=== PATIENT | female | born 1990 | race Caucasian/White ===

== ENCOUNTER → 2019-12-29 10:26 | Outpatient (BNVA) | payer OTHER, SELFPAY | PROVIDERS: PCP Internal Medicine; Visit Provider Obstetrics & Gynecology | DX: N92.6 Irregular menstruation, unspecified (principal) | CPT/HCPCS: 81025; 99213 ==

== ENCOUNTER 2019-12-30 07:34 | Outpatient (REF) | payer OTHER, SELFPAY ==
[2019-12-30 09:35] LABS: TSH reflex Free T4 0.67 mIU/mL (0.32-4.0)
[2020-01-01 01:46] LABS: Follicle Stimulating Hormone 5.6 mIU/mL
[2020-01-01 16:51] LABS: Prolactin 1.8 ng/mL
== END 2019-12-30 07:35 | disposition home or self-care (01) ==
LOC: HO.LAB 07:34
PROVIDERS: PCP Internal Medicine; Visit Provider Obstetrics & Gynecology
DX: N92.6 Irregular menstruation, unspecified (principal)
CPT/HCPCS: 36415; 83001; 84146; 84443

== ENCOUNTER → 2020-01-12 11:56 | Outpatient (BNVA) | payer OTHER, SELFPAY | PROVIDERS: Visit Provider Obstetrics & Gynecology | DX: Z76.89 Persons encountering health services in other specified circumstances (principal) ==

== ENCOUNTER 2020-01-20 17:57 | Outpatient (REF) | payer OTHER, SELFPAY | END 2020-01-20 17:58 | disposition home or self-care (01) | LOC: HO.LNP 17:57 | PROVIDERS: Visit Provider Hospitalist | DX: Z20.828 Contact with and (suspected) exposure to other viral communicable diseases (principal) | CPT/HCPCS: 87635 ==

== ENCOUNTER 2020-02-04 03:34 | Emergency (ER) | payer OTHER, SELFPAY ==
--- NOTE | 2020-02-04 | ECG_ITS ---
Test Reason : CHEST PAIN Blood Pressure : / mmHG Vent. Rate : 089 BPM Atrial Rate : 089 BPM P-R Int : 156 ms QRS Dur : 098 ms QT Int : 354 ms P-R-T Axes : 036 073 043 degrees QTc Int : 430 ms Normal sinus rhythm Normal ECG When compared with ECG of 22-JUL-2011 18:07, No significant change was found Referred By: Generic ED Physician Electronically Signed By:COLLINS PEREIRA MD
[2020-02-04 03:49] VITALS: BP 128/87; PULSE 98; RESP 16; TEMP 36.8; O2SAT 99; BMI 29.0
--- NOTE | 2020-02-04 03:54 | PC.NURSE ---
pt ambulatory to room from with steady gait. no difficulty speaking or facial droop. equal strong bilateral hand grasps. pt denies headache or recent injury.
--- NOTE | 2020-02-04 04:34 | CT_ITS ---
EXAMINATION: CT HEAD WITHOUT CONTRAST CLINICAL INFORMATION: Headache. COMPARISON: 12/30/2014. TECHNIQUE: Contiguous helical images of the brain were obtained without IV contrast. Multiplanar reconstructions were performed. DLP: 641 mGy-cm. FINDINGS: There are no pathologic extra-axial fluid collections. The lateral, third, fourth ventricles are nondilated and concordant with the appearance of the sulci. There is no evidence for acute intraparenchymal hemorrhage or infarct. There is neither mass nor mass effect. There is no shift of midline structures. The paranasal sinuses and mastoid air cells are clear. There are no osseous lesions. CT/CT head/brain wo con IMPRESSION: No evidence for acute intracranial injury. Automated exposure control (Care Dose) Adjustment of the mA and/or kv according to patient size (this includes techniques or standardized protocols for targeted exams where dose is matched to indication / reason for exam; i.e. extremities or head).
--- NOTE | 2020-02-04 04:37 | ED.GENADULT ---
HPI - General Adult General Chief complaint: General Medical Stated complaint: NUMBNESS IN JAW AND RIGHT ARM/CHEST TIGHTNESS Time Seen by Provider: 02/04/20 04:34 History of Present Illness HPI narrative: Patient is a 29-year-old female presents today with having numbness sensation to the right arm face. Along with chest tightness and facial pain. Patient denies any fever chills. Has a history of migraines in the past. Worse with light. No coughing or congestion or upper respiratory symptoms. Able to move her hands without any difficulty. Patient denies noticing any facial droop. Patient from home. No recent travel. No syncopal episode. No history of diabetes, hypertension, mi, family history of [place]. No smoking. Patient from home. Related Data Home Medications Medication Instructions Recorded Confirmed albuterol sulfate 90 mcg/actuation INHALATION 12/26/19 aerosol inhaler amitriptyline 25 mg tablet 25 mg PO BEDTIME 12/26/19 ferrous fumarate 325 mg (106 mg 325 mg PO BID 12/26/19 iron) tablet hydroxyzine pamoate 25 mg capsule 25 mg PO BEDTIME 12/26/19 ibuprofen 800 mg tablet 800 mg PO TID 12/26/19 norethindrone 1 mg-ethinyl 1 tab PO DAILY 12/26/19 estradiol 20 mcg (21)-iron 75 mg (7) tablet ondansetron HCl 4 mg tablet 4 mg PO Q8H 12/26/19 pantoprazole 40 mg tablet,delayed 40 mg PO DAILY 12/26/19 release pramipexole 0.5 mg tablet 0.5 mg PO BEDTIME 12/26/19 prochlorperazine maleate 10 mg 10 mg PO Q6H 12/26/19 tablet Previous Rx's Medication Instructions Recorded amoxicillin 875 mg-potassium 1 tab PO BID #20 tab 01/20/20 clavulanate 125 mg tablet Allergies Allergy/AdvReac Type Severity Reaction Status Date / Time metronidazole [Flagyl] Allergy Unknown stomach Verified 02/04/20 03:47 upset paroxetine [Paxil] Allergy Unknown vomiting Verified 02/04/20 03:47 clarithromycin [From Biaxin] AdvReac Mild HEADACHE Verified 02/04/20 03:47 lactose [Lactose] AdvReac Mild CRAMPING/VO Verified 02/04/20 03:47 MITING Environmental Allergy Mild ITCHY Uncoded 12/15/19 16:04 EYES/RUNNY NOSE Biaxin Allergy Unknown vomiting Uncoded 08/01/19 00:00 lactose Allergy Unknown Diarrhea Uncoded 02/04/20 03:47 milk Allergy Unknown Diarrhea Uncoded 02/04/20 03:47 seasonal Allergy Unknown Itching Uncoded 02/04/20 03:47 From PAXIL AdvReac Intermediate NAUSEA & Uncoded 12/15/19 16:04 VOMITING Review of Systems Review of Systems: Constitutional: No Weight loss, No Fever, No Chills, No Night Sweats, No Fatigue, No Malaise ENT/Mouth: No Hearing loss, No Ear Pain, No Nasal Congestion, No Sinus Pain, No Hoarseness, No sore throat, No Rhinorrhea, No Swallowing Difficulty Eyes: No Eye Pain, No Swelling, No Redness, No Foreign Body, No Discharge, No Vision Changes Cardiovascular: No Chest Pain, No SOB, No Dyspnea on Exertion, No Orthopnea, No Edema, No Palpitations Respiratory: No Cough, No Sputum, No Wheezing, No Smoke Exposure, No Dyspnea Gastrointestinal: No Nausea, No Vomiting, No Diarrhea, No Constipation, No abdominal Pain, No Hematochezia, No Melena Genitourinary: no irregular bleeding, No Dysuria, No Urinary Frequency, No Hematuria, No Urinary Incontinence, No Urgency, No Flank Pain, No Urinary Flow Changes, No Hesitancy Musculoskeletal: No joint pain, No Myalgias, No Joint Swelling Skin: No Skin Lesions, No rash Neuro: No Weakness, No Numbness, No Paresthesias, No Loss of Consciousness, No Dizziness, No Headache Psych: No Anxiety/Panic, No Depression, No SI/HI/AH/VH, No Social Issues, Heme/Lymph: No Bruising, No Bleeding,No Lymphadenopathy Endocrine: No Polyuria, No Polydipsia, No Temperature Intolerance PMFSH Past Medical History Attestation statement: The following information was validated with the patient. Medical History Anxiety delivery delivered Depression Fibromyalgia GERD (gastroesophageal reflux disease) IBS (irritable bowel syndrome) Irregular menstrual bleeding (~01/2019) Overweight (BMI 25.0-29.9) Restless leg syndrome Surgical History H/O laparoscopy History of delivery Hx of tonsillectomy [place] teeth extracted Family History Family History Father Kidney failure Heart disease Colon polyps Bipolar 1 disorder Hypertension CVD (cardiovascular disease) Chronic mental illness Mother Seizure Depression Anxiety Maternal Grandmother Hemorrhagic stroke History of multiple strokes Maternal Grandfather Cancer Family/Other Breast cancer Family/Other Colon cancer Social History Social History Alcohol intake: never Smoking Status: Never smoker Advance Directives: No Advance Directives Information Provided: No Sexual orientation: Straight/Heterosexual Gender identity: female Physical Exam Vital Signs: Vital Signs: Last Vital Signs Temp 98.2 F 02/04/20 03:49 Pulse 77 02/04/20 06:18 Resp 20 02/04/20 06:18 BP 113/72 02/04/20 06:18 Pulse Ox 100 02/04/20 06:18 Body Mass Index 29.0 Appearance: Alert. Oriented X3. No acute distress. Eyes: Pupils equal, round and reactive to light. ENT: Pharynx normal. Neck: Normal inspection. Neck supple. No lymph nodes noted. No crepitus CVS: Normal heart rate and rhythm. Pulses normal. Normal S1 and S2 Respiratory: No respiratory distress. Breath sounds normal. No Wheezing. No rales Abdomen: Soft and nontender. No rigidity. No distention. good BS x4 Skin: Skin warm and dry. Normal skin color. Normal skin turgor. Extremities: No lower extremity edema. Neurovascular intact to all extremities. No Lacerations. No Rash Neuro: Oriented X 3. No motor deficit. No sensory deficit. Moving all extermities. No slurred speech Medical Decision Making MDM Narrative Medical decision making narrative: Question if symptoms secondary to migraine headache. Patient had headache has arm numbness. Had previous history of migraine in the past. Given migraine treatment. Symptoms resolved. CT scan of the head was grossly negative for any acute evidence of bleeding. Neurologically intact. There is no objective finding only subjective findings. Will discharge patient home. Currently in stable condition Differential Diagnosis Differential Diagnosis: Migraine, CVA, intracranial bleed Lab Data Lab results reviewed: Yes I reviewed the patient's lab results. Result diagrams: 02/04/20 04:58 02/04/20 04:58 Labs: Lab Results 02/04/20 02/04/20 02/04/20 Range/Units 04:49 04:58 04:58 WBC 4.8 (4.8-10.8) X10*3/uL RBC 4.78 (4.20-5.50) X10*6/uL Hgb 13.2 (12.0-16.0) g/dl Hct 40.1 (37-47) % MCV 83.9 (80-98) fL MCH 27.6 (27.0-33.0) pg MCHC 32.9 (31.0-35.0) g/dl RDW 12.4 (11.0-16.0) % Plt Count 343 (160-400) X10*3/uL MPV 9.8 (9.4-12.3) fL Immature Gran % (Auto) 0.0 (0.0-0.4) % Neut % (Auto) 43.7 L (45-73) % Lymph % (Auto) 45.0 H (20-40) % [place] % (Auto) 6.8 (2-11) % Eos % (Auto) 4.1 H (0-4) % Baso % (Auto) 0.4 (0-2) % Lymph # (Auto) 2.2 (1.2-4.9) X10*3/uL [place] # (Auto) 0.3 (0.1-1.2) X10*3/uL Eos # (Auto) 0.2 (0.0-0.4) X10*3/uL Baso # (Auto) 0.0 (0.0-0.2) X10*3/uL Abs Immat Gran (auto) 0.00 (0.00-0.03) X10*3/uL Absolute Neuts (auto) 2.1 (2.0-8.3) X10*3/uL Absolute Nucleated RBC 0.000 (0.0-0.012) X10*3/uL Nucleated RBC % (auto) 0.0 (0.0-0.2) /100WBC PT 12.0 (10.8-13.0) SEC INR 1.0 (0.9-1.1) Sodium (135-145) mmol/L Potassium (3.3-5.1) mmol/l Chloride (96-108) mmol/L Carbon Dioxide (22-29) mmol/L Anion Gap (12-20) BUN (9-16) mg/dL Creatinine (0.5-1.4) mg/dL Estim Creat Clear Calc Estimated GFR Random Glucose (60-115) mg/dL Calcium (8.4-10.2) mg/dL Troponin I High Sens (<3.5-17.0) ng/L Urine Test NEGATIVE (NEGATIVE) 02/04/20 02/04/20 Range/Units 04:58 04:58 WBC (4.8-10.8) X10*3/uL RBC (4.20-5.50) X10*6/uL Hgb (12.0-16.0) g/dl Hct (37-47) % MCV (80-98) fL MCH (27.0-33.0) pg MCHC (31.0-35.0) g/dl RDW (11.0-16.0) % Plt Count (160-400) X10*3/uL MPV (9.4-12.3) fL Immature Gran % (Auto) (0.0-0.4) % Neut % (Auto) (45-73) % Lymph % (Auto) (20-40) % [place] % (Auto) (2-11) % Eos % (Auto) (0-4) % Baso % (Auto) (0-2) % Lymph # (Auto) (1.2-4.9) X10*3/uL [place] # (Auto) (0.1-1.2) X10*3/uL Eos # (Auto) (0.0-0.4) X10*3/uL Baso # (Auto) (0.0-0.2) X10*3/uL Abs Immat Gran (auto) (0.00-0.03) X10*3/uL Absolute Neuts (auto) (2.0-8.3) X10*3/uL Absolute Nucleated RBC (0.0-0.012) X10*3/uL Nucleated RBC % (auto) (0.0-0.2) /100WBC PT (10.8-13.0) SEC INR (0.9-1.1) Sodium 140 (135-145) mmol/L Potassium 3.5 (3.3-5.1) mmol/l Chloride 107 (96-108) mmol/L Carbon Dioxide 28 (22-29) mmol/L Anion Gap 9 L (12-20) BUN 7 L (9-16) mg/dL Creatinine 0.78 (0.5-1.4) mg/dL Estim Creat Clear Calc 100.9 Estimated GFR > 60 Random Glucose 105 (60-115) mg/dL Calcium 8.2 L (8.4-10.2) mg/dL Troponin I High Sens < 3.5 (<3.5-17.0) ng/L Urine Test (NEGATIVE) Discharge Plan Discharge Clinical Impression: Migraine Patient Disposition: Home, Self-Care Instructions: Migraine Headache (ED) Prescriptions: No Action amoxicillin-pot clavulanate [Augmentin] 875-125 mg tablet 1 tab PO BID Qty: 20 RF: 0 prochlorperazine maleate 10 mg tablet 10 mg PO Q6H RF: 0 norethindrone-e.estradiol-iron 1 mg-20 mcg (21)/75 mg (7) tablet 1 tab PO DAILY RF: 0 pantoprazole 40 mg tablet,delayed release (DR/EC) 40 mg PO DAILY RF: 0 pramipexole 0.5 mg tablet 0.5 mg PO BEDTIME RF: 0 amitriptyline 25 mg tablet 25 mg PO BEDTIME RF: 0 ibuprofen 800 mg tablet 800 mg PO TID RF: 0 albuterol sulfate 90 mcg/actuation HFA aerosol inhaler inhalation RF: 0 ondansetron HCl [Zofran] 4 mg tablet 4 mg PO Q8H RF: 0 hydroxyzine pamoate [Vistaril] 25 mg capsule 25 mg PO BEDTIME RF: 0 ferrous fumarate 325 mg (106 mg iron) tablet 325 mg PO BID RF: 0 Referrals: Jammie Castle MD [Primary Care Provider] - 2 days
[2020-02-04 05:06] LABS: Basophils Percent Auto 0.4 % (0-2); Eosinophils Absolute Auto 0.2 X10*3/uL (0.0-0.4); Eosinophils Percent Auto 4.1 % (0-4); Hematocrit 40.1 % (37-47); Hemoglobin 13.2 g/dl (12.0-16.0); Lymphocytes Absolute Auto 2.2 X10*3/uL (1.2-4.9); Mean Corpuscular HGB Conc 32.9 g/dl (31.0-35.0); Mean Corpuscular Hemoglobin 27.6 pg (27.0-33.0); Mean Corpuscular Volume 83.9 fL (80-98); Mean Platelet Volume 9.8 fL (9.4-12.3); Monocytes Absolute Auto 0.3 X10*3/uL (0.1-1.2); Monocytes Percent Auto 6.8 % (2-11); Neutrophils Absolute Auto 2.1 X10*3/uL (2.0-8.3); Neutrophils Percent Auto 43.7 % (45-73); Platelet Count 343 X10*3/uL (160-400); Red Blood Count 4.78 X10*6/uL (4.20-5.50); Red Cell Distribution Width 12.4 % (11.0-16.0); White Blood Count 4.8 X10*3/uL (4.8-10.8)
[2020-02-04 05:07] LABS: MANUAL DIFF FLAG NO
[2020-02-04] MEDS: Ketorolac Tromethamine 15 MG/ML VIAL IV (05:17)
[2020-02-04] MEDS: Metoclopramide HCl 10 MG/2 ML VIAL IVPUSH (05:18)
[2020-02-04] MEDS: diphenhydrAMINE HCL 50 MG/ML VIAL 25 MG IVPUSH (05:18)
[2020-02-04 05:22] LABS: UPreg QC Valid YES; Urine Pregnancy NEGATIVE (NEGATIVE)
[2020-02-04 05:37] LABS: Anion Gap 9 (12-20); Blood Urea Nitrogen 7 mg/dL (9-16); Calcium 8.2 mg/dL (8.4-10.2); Carbon Dioxide 28 mmol/L (22-29); Chloride 107 mmol/L (96-108); Creatinine Clr Calc Pharmacy 100.9; Estimated Glomerular Filt Rate > 60; Glucose Random 105 mg/dL (60-115); Potassium 3.5 mmol/l (3.3-5.1); Sodium 140 mmol/L (135-145); Troponin-I High Sensitivity < 3.5 ng/L (<3.5-17.0)
--- NOTE | 2020-02-04 06:17 | PC.NURSE ---
pt reports that she is no longer experiencing chest discomfort or right sided numbness. 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 pt was able to fal asleep following edication administration.
[2020-02-04 06:18] VITALS: BP 113/72; PULSE 77; RESP 20; O2SAT 100
== END 2020-02-04 06:47 | disposition home or self-care (01) ==
PROVIDERS: Emergency Provider Emergency Medicine Emergency Medical Services; PCP Internal Medicine
DX: G43.909 Migraine, unspecified, not intractable, without status migrainosus (principal); Z79.899 Other long term (current) drug therapy; R20.0 Anesthesia of skin
CPT/HCPCS: 36415; 70450; 80048; 81025; 84484; 85025; 85610; 93005; 96374; 96375; 99283; 99284; J1200; J1885; J2765

== ENCOUNTER → 2020-02-20 14:35 | Outpatient (BNVA) | payer OTHER, SELFPAY | PROVIDERS: Visit Provider Obstetrics & Gynecology | DX: Z76.89 Persons encountering health services in other specified circumstances (principal) ==

== ENCOUNTER 2020-04-02 13:04 | Outpatient (REF) | payer OTHER, SELFPAY ==
--- NOTE | 2020-04-02 13:09 | US_ITS ---
EXAMINATION: PELVIC ULTRASOUND CLINICAL INFORMATION: Amenorrhea COMPARISON: Previous pelvic ultrasound May 2017 TECHNIQUE: Transabdominal and transvaginal pelvic ultrasound. Transvaginal exam was performed for better visualization of the uterus and ovaries. FINDINGS: The uterus is anteverted and measures 8.5 x 3.2 x 4.2 cm in dimension. No focal uterine lesion is seen. Endometrial thickness is normal estimated at 0.4 cm. There is trace fluid seen in the endocervical canal. There are small echogenic foci in the cervix probably representing small calcifications. The ovaries are normal-appearing. The right ovary measures 3.8 x 2.7 x 1.8 cm and the left ovary measures 2.3 x 1.2 x 2.3 cm. There is no fluid in the pelvis. US/US pelvic complete IMPRESSION: Unremarkable exam.
--- NOTE | 2020-04-02 13:09 | US_ITS ---
EXAMINATION: PELVIC ULTRASOUND CLINICAL INFORMATION: Amenorrhea COMPARISON: Previous pelvic ultrasound May 2017 TECHNIQUE: Transabdominal and transvaginal pelvic ultrasound. Transvaginal exam was performed for better visualization of the uterus and ovaries. FINDINGS: The uterus is anteverted and measures 8.5 x 3.2 x 4.2 cm in dimension. No focal uterine lesion is seen. Endometrial thickness is normal estimated at 0.4 cm. There is trace fluid seen in the endocervical canal. There are small echogenic foci in the cervix probably representing small calcifications. The ovaries are normal-appearing. The right ovary measures 3.8 x 2.7 x 1.8 cm and the left ovary measures 2.3 x 1.2 x 2.3 cm. There is no fluid in the pelvis. US/US transvaginal IMPRESSION: Unremarkable exam.
[2020-04-03 07:38] LABS: Prolactin 4.1 ng/mL
[2020-04-06 21:52] LABS: Estradiol, Ultrasensitive 94 pg/mL
== END 2020-04-02 13:05 | disposition home or self-care (01) ==
LOC: HO.US 13:04
PROVIDERS: PCP Internal Medicine; Visit Provider Obstetrics & Gynecology
DX: N91.2 Amenorrhea, unspecified (principal)
CPT/HCPCS: 36415; 76830; 76856; 82670; 84146

== ENCOUNTER → 2020-04-10 15:14 | Outpatient (BNVA) | payer OTHER, SELFPAY | PROVIDERS: PCP Internal Medicine; Visit Provider Obstetrics & Gynecology | DX: Z76.89 Persons encountering health services in other specified circumstances (principal) ==

== ENCOUNTER → 2020-04-13 11:09 | Outpatient (BNVA) | payer OTHER, SELFPAY | PROVIDERS: PCP Internal Medicine; Visit Provider Obstetrics & Gynecology | DX: Z76.89 Persons encountering health services in other specified circumstances (principal) ==

== ENCOUNTER 2020-05-21 18:38 | Emergency (ER) | payer OTHER, SELFPAY ==
--- NOTE | ~2020-05-21 | XR_ITS ---
EXAMINATION: XR CHEST CLINICAL INFORMATION: Upper respiratory infection COMPARISON: Chest x-ray 08/05/2008 TECHNIQUE: Frontal portable view of the chest was obtained. 8:04 PM FINDINGS: No significant abnormality is noted involving the heart, lungs, mediastinum, bony thorax or soft tissues. XR/XR chest 1V IMPRESSION: Unremarkable examination.
[2020-05-21 19:55] VITALS: BP 128/71; PULSE 115; RESP 19; TEMP 38.5; O2SAT 100; BMI 28.3
[2020-05-21 20:08] VITALS: BP 128/71; PULSE 115; RESP 19; TEMP 38.5; O2SAT 100
[2020-05-21] MEDS: Ibuprofen 600 MG TABLET PO (20:09)
--- NOTE | 2020-05-21 20:25 | ED.GENADULT ---
HPI - General Adult General Chief complaint: General Medical Stated complaint: fever Time Seen by Provider: 05/21/20 20:05 Source: patient Mode of arrival: ambulatory Limitations: no limitations History of Present Illness HPI narrative: 29-year-old female with no significant past medical history presents with upper respiratory symptoms consistent with COVID-19. Her daughter was tested positive today. She presents with fever sore throat, cough, and malaise. She is requesting COVID testing. Related Data Home Medications Medication Instructions Recorded Confirmed albuterol sulfate 90 mcg/actuation INHALATION 12/26/19 aerosol inhaler amitriptyline 25 mg tablet 25 mg PO BEDTIME 12/26/19 ferrous fumarate 325 mg (106 mg 325 mg PO BID 12/26/19 iron) tablet hydroxyzine pamoate 25 mg capsule 25 mg PO BEDTIME 12/26/19 ibuprofen 800 mg tablet 800 mg PO TID 12/26/19 norethindrone 1 mg-ethinyl 1 tab PO DAILY 12/26/19 estradiol 20 mcg (21)-iron 75 mg (7) tablet pantoprazole 40 mg tablet,delayed 40 mg PO DAILY 12/26/19 release pramipexole 0.5 mg tablet 0.5 mg PO BEDTIME 12/26/19 prochlorperazine maleate 10 mg 10 mg PO Q6H 12/26/19 tablet Previous Rx's Medication Instructions Recorded amoxicillin 875 mg-potassium 1 tab PO BID #20 tab 01/20/20 clavulanate 125 mg tablet medroxyprogesterone 10 mg tablet 10 mg PO DAILY #10 tab 02/20/20 ondansetron HCl 4 mg tablet 4 mg PO Q8H PRN 30 Days #90 tab 03/07/20 amoxicillin 500 mg PO Q12H 10 Days #20 tab 05/21/20 Allergies Allergy/AdvReac Type Severity Reaction Status Date / Time metronidazole [Flagyl] Allergy Unknown stomach Verified 04/13/20 11:10 upset paroxetine [Paxil] Allergy Unknown vomiting Verified 04/13/20 11:10 clarithromycin [From Biaxin] AdvReac Mild HEADACHE Verified 04/13/20 11:10 lactose [Lactose] AdvReac Mild CRAMPING/VO Verified 04/13/20 11:10 MITING Environmental Allergy Mild ITCHY Uncoded 12/15/19 16:04 EYES/RUNNY NOSE Biaxin Allergy Unknown vomiting Uncoded 08/01/19 00:00 lactose Allergy Unknown Diarrhea Uncoded 02/04/20 03:47 milk Allergy Unknown Diarrhea Uncoded 02/04/20 03:47 seasonal Allergy Unknown Itching Uncoded 02/04/20 03:47 From PAXIL AdvReac Intermediate NAUSEA & Uncoded 12/15/19 16:04 VOMITING Review of Systems Review of Systems: Constitutional: positive Fever, positive Chills, positive fatigue, positive Malaise ENT/Mouth: positive sore throat, positive runny nose Eyes: No Discharge Cardiovascular: No Chest Pain, No SOB Respiratory: No Cough, No Sputum, No Wheezing, No Smoke Exposure, No Dyspnea Gastrointestinal: No Nausea, No Vomiting, No Diarrhea Genitourinary: no irregular bleeding, No Dysuria, No Urinary Frequency, No Hematuria, No Urinary Incontinence, No Urgency, No Flank Pain, Musculoskeletal: positive Myalgia Skin: No rash Neuro: No Headache Yes all other systems are reviewed and are negative PMFSH Past Medical History Attestation statement: The following information was validated with the patient. Source: old records reviewed Medical History Anxiety delivery delivered Depression Fibromyalgia GERD (gastroesophageal reflux disease) IBS (irritable bowel syndrome) Irregular menstrual bleeding (~01/2019) Overweight (BMI 25.0-29.9) Restless leg syndrome Surgical History H/O laparoscopy History of delivery Hx of tonsillectomy [place] teeth extracted Family History Family History Father Kidney failure Heart disease Colon polyps Bipolar 1 disorder Hypertension CVD (cardiovascular disease) Chronic mental illness Mother Seizure Depression Anxiety Maternal Grandmother Hemorrhagic stroke History of multiple strokes Maternal Grandfather Cancer Family/Other Breast cancer Family/Other Colon cancer Social History Social History Alcohol intake: never Smoking Status: Never smoker Use of substances other than those prescribed or required for medical reasons: No Advance Directives: No Advance Directives Information Provided: No Sexual orientation: Straight/Heterosexual Gender identity: female Physical Exam Vital Signs: Vital Signs: Last Vital Signs Temp 101.3 F H 05/21/20 20:08 Pulse 115 H 05/21/20 20:08 Resp 19 05/21/20 20:08 BP 128/71 05/21/20 20:08 Pulse Ox 100 05/21/20 20:08 Body Mass Index 28.3 Appearance: Alert. Oriented X3. Mild distress. Febrile Eyes: Pupils equal, round and reactive to light. ENT: Pharynx normal. Centor scale 2 Neck: Normal inspection. Neck supple. CVS: Tachycardic heart rate and rhythm. Pulses normal. Respiratory: No respiratory distress. Breath sounds normal. Abdomen: Soft and nontender. Skin: Skin warm and dry. Normal skin color. Normal skin turgor. Extremities: No lower extremity edema. Neuro: No motor deficit. No sensory deficit. Course Course Course Narrative: 29-year-old female presents with upper respiratory symptoms consistent with COVID-19. Her daughter is positive, will test for COVID. Will give Motrin for fever. Order for chest x-ray. X-rays are negative, approximately 40 minutes after Motrin, heart rate 87, temperature is 99.5? taken by this LEAD RADIATION THERAPIST. Will treat for pharyngitis and suspected upper respiratory symptoms. Although patient tested negative we asked to treat herself as positive as she has several member of her family that are positive for COVID-19. Patient verbalized understanding of and agrees to plan of care discharge home. Medical Decision Making Differential Diagnosis Differential Diagnosis: COVID-19, viral syndrome, pharyngitis, influenza Medical Records Medical records reviewed: Yes I reviewed the patient's medical records. Lab Data Lab results reviewed: Yes I reviewed the patient's lab results. Labs: Lab Results 05/21/20 Range/Units 20:27 Coronavirus (PCR) NEGATIVE (Negative) Influenza Type A (PCR) NEGATIVE (Negative) Influenza Type B (PCR) NEGATIVE (Negative) RSV RNA Qual (PCR) NEGATIVE (Negative) Imaging Data Chest x-ray: Attestation: I personally reviewed and interpreted this imaging study as follows: Radiologist's impression: EXAMINATION: XR CHEST CLINICAL INFORMATION: Upper respiratory infection COMPARISON: Chest x-ray 08/05/2008 TECHNIQUE: Frontal portable view of the chest was obtained. 8:04 PM FINDINGS: No significant abnormality is noted involving the heart, lungs, mediastinum, bony thorax or soft tissues. XR/XR chest 1V IMPRESSION: Unremarkable examination. Discharge Plan Discharge Clinical Impression: Pharyngitis, Viral upper respiratory illness Patient Disposition: Home, Self-Care Instructions: Pharyngitis (ED), Viral Syndrome (ED) Additional Instructions: You were evaluated for symptoms consistent COVID-19. Your COVID test was negative. We are treating for pharyngitis with amoxicillin. Please take amoxicillin as directed. Tylenol Motrin as needed for pain management. If anyone in your family test positive for COVID, you must treat your self as if your positive for COVID-19 please maintain social isolation for State and Federal guidelines. It is your responsibility to maintain these guidelines. Thank you for choosing this emergency department for evaluation. Please follow-up with primary care physician as needed. Return to the emergency department for any new, concerning, or worsening symptoms. Prescriptions: New amoxicillin 500 mg tablet 500 mg PO Q12H 10 Days Qty: 20 RF: 0 No Action ondansetron HCl [Zofran] 4 mg tablet 4 mg PO Q8H PRN (Reason: nausea and vomiting) 30 Days Qty: 90 RF: 6 amoxicillin-pot clavulanate [Augmentin] 875-125 mg tablet 1 tab PO BID Qty: 20 RF: 0 prochlorperazine maleate 10 mg tablet 10 mg PO Q6H RF: 0 norethindrone-e.estradiol-iron 1 mg-20 mcg (21)/75 mg (7) tablet 1 tab PO DAILY RF: 0 pantoprazole 40 mg tablet,delayed release (DR/EC) 40 mg PO DAILY RF: 0 pramipexole 0.5 mg tablet 0.5 mg PO BEDTIME RF: 0 amitriptyline 25 mg tablet 25 mg PO BEDTIME RF: 0 ibuprofen 800 mg tablet 800 mg PO TID RF: 0 albuterol sulfate 90 mcg/actuation HFA aerosol inhaler inhalation RF: 0 hydroxyzine pamoate [Vistaril] 25 mg capsule 25 mg PO BEDTIME RF: 0 ferrous fumarate 325 mg (106 mg iron) tablet 325 mg PO BID RF: 0 medroxyprogesterone 10 mg tablet 10 mg PO DAILY Qty: 10 RF: 0 Interventions: ED Discharge Assessment Last Done: 05/21/20 22:05 Discharge Date/Time: 05/21/20 22:05
[2020-05-21 21:21] LABS: Influenza A PCR NEGATIVE (Negative); Influenza B PCR NEGATIVE (Negative); Resp Syncy Virus RNA Qual PCR NEGATIVE (Negative); SARS COV2 PCR INHOUSE NEGATIVE (Negative)
[2020-05-21] MEDS: Amoxicillin 500 MG CAPSULE PO (21:57)
== END 2020-05-21 22:05 | disposition home or self-care (01) ==
PROVIDERS: Nurse Practitioner Family; Emergency Provider Internal Medicine; PCP Internal Medicine
DX: R50.9 Fever, unspecified (principal); J06.9 Acute upper respiratory infection, unspecified; J02.9 Acute pharyngitis, unspecified; B34.9 Viral infection, unspecified; Z20.822 Contact with and (suspected) exposure to COVID-19; F41.9 Anxiety disorder, unspecified; Z79.899 Other long term (current) drug therapy
CPT/HCPCS: 0241U; 36415; 71045; 87071; 87880; 99283; 99284

== ENCOUNTER 2020-06-06 08:54 | Outpatient (REF) | payer OTHER, SELFPAY ==
[2020-06-07 16:02] LABS: C. trachomatis RNA TMA NOT DETECTED (NOT DETECTED); N. gonorrhoeae RNA TMA NOT DETECTED (NOT DETECTED)
== END 2020-06-06 08:55 | disposition home or self-care (01) ==
LOC: HO.LAB 08:54
PROVIDERS: PCP Internal Medicine; Visit Provider Obstetrics & Gynecology
DX: Z30.430 Encounter for insertion of intrauterine contraceptive device (principal); Z20.2 Contact with and (suspected) exposure to infections with a predominantly sexual mode of transmission
CPT/HCPCS: 36415; 58300; 87491; 87591; J7296

== ENCOUNTER 2020-07-21 17:55 | Emergency (ER) | payer OTHER, SELFPAY ==
[2020-07-21 18:48] VITALS: PULSE 98; RESP 16; TEMP 37; O2SAT 99; BMI 28.3
--- NOTE | 2020-07-21 18:54 | PC.NURSE ---
Covid swab obtained and sent.
[2020-07-21 19:16] LABS: COVID-19 Test Negative (Negative)
--- NOTE | 2020-07-21 19:17 | ED_ITS ---
HPI - URI/Sore Throat General Chief Complaint: Upper Respiratory Symptoms Stated Complaint: covid symptoms Time Seen by Provider: 07/21/20 19:04 Source: patient, RN notes reviewed and old records reviewed Mode of arrival: ambulatory Limitations: no limitations History of Present Illness HPI Narrative: 29-year-old female here today for complaining COVID like symptoms. Patient states that she has a headache, sore throat, fatigue and some nausea. Denies fever chills, vomiting, abdominal pain or discomfort, diarrhea. Patient reports that her boyfriend tested positive for COVID. Both of hers and her boyfriend's symptoms started 4 days ago. Patient states that her boyfriend when for testing today and tested positive. Patient denies any other respiratory or cardiac symptoms. Related Data Home Medications Medication Instructions Recorded Confirmed albuterol sulfate 90 mcg/actuation INHALATION 12/26/19 05/26/20 aerosol inhaler amitriptyline 25 mg tablet 25 mg PO BEDTIME 12/26/19 05/26/20 ferrous fumarate 325 mg (106 mg 325 mg PO BID 12/26/19 05/26/20 iron) tablet hydroxyzine pamoate 25 mg capsule 25 mg PO BEDTIME 12/26/19 05/26/20 ibuprofen 800 mg tablet 800 mg PO TID 12/26/19 05/26/20 norethindrone 1 mg-ethinyl 1 tab PO DAILY 12/26/19 05/26/20 estradiol 20 mcg (21)-iron 75 mg (7) tablet pantoprazole 40 mg tablet,delayed 40 mg PO DAILY 12/26/19 05/26/20 release pramipexole 0.5 mg tablet 0.5 mg PO BEDTIME 12/26/19 05/26/20 prochlorperazine maleate 10 mg 10 mg PO Q6H 12/26/19 05/26/20 tablet Previous Rx's Medication Instructions Recorded amoxicillin 875 mg-potassium 1 tab PO BID #20 tab 01/20/20 clavulanate 125 mg tablet medroxyprogesterone 10 mg tablet 10 mg PO DAILY #10 tab 02/20/20 ondansetron HCl 4 mg tablet 4 mg PO Q8H PRN 30 Days #90 tab 03/07/20 amoxicillin 500 mg PO Q12H 10 Days #20 tab 05/21/20 Allergies Allergy/AdvReac Type Severity Reaction Status Date / Time metronidazole [Flagyl] Allergy Unknown stomach Verified 07/21/20 19:00 upset paroxetine [Paxil] Allergy Unknown vomiting Verified 07/21/20 19:00 clarithromycin [From Biaxin] AdvReac Mild HEADACHE Verified 07/21/20 19:00 lactose [Lactose] AdvReac Mild CRAMPING/VO Verified 07/21/20 19:00 MITING Environmental Allergy Mild ITCHY Uncoded 07/21/20 19:00 EYES/RUNNY NOSE Biaxin Allergy Unknown vomiting Uncoded 07/21/20 19:00 lactose Allergy Unknown Diarrhea Uncoded 07/21/20 19:00 milk Allergy Unknown Diarrhea Uncoded 07/21/20 19:00 seasonal Allergy Unknown Itching Uncoded 07/21/20 19:00 From PAXIL AdvReac Intermediate NAUSEA & Uncoded 07/21/20 19:00 VOMITING Review of Systems Review of Systems: Constitutional : No Weight loss, No Fever, No Chills, No Night Sweats, No Fatigue, No Malaise ENT/Mouth : No Hearing loss, No Ear Pain, No Nasal Congestion, No Sinus Pain, No Hoarseness, No sore throat, No Rhinorrhea, No Swallowing Difficulty Eyes: No Eye Pain, No Swelling, No Redness, No Foreign Body, No Discharge, No Vision Changes Cardiovascular : No Chest Pain, No SOB, No Dyspnea on Exertion, No Orthopnea, No Edema, No Palpitations Respiratory : Cough, No Sputum, No Wheezing, No Smoke Exposure, No Dyspnea Gastrointestinal : No Nausea, No Vomiting, No Diarrhea, No Constipation, No abdominal Pain, No Hematochezia, No Melena Genitourinary : no irregular bleeding, No Dysuria, No Urinary Frequency, No Hematuria, No Urinary Incontinence, No Urgency, No Flank Pain, No Urinary Flow Changes, No Hesitancy Musculoskeletal : No joint pain, No Myalgias, No Joint Swelling Skin : No Skin Lesions, No rash Neuro : No Weakness, No Numbness, No Paresthesias, No Loss of Consciousness, No Dizziness, No Headache Psych : No Anxiety/Panic, No Depression, No SI/HI/AH/VH, No Social Issues, Heme/Lymph: No Bruising, No Bleeding,No Lymphadenopathy Endocrine : No Polyuria, No Polydipsia, No Temperature Intolerance Yes all other systems are reviewed and are negative [facility] Past Medical History Medical History Anxiety delivery delivered Depression Fibromyalgia Flu-like symptoms GERD (gastroesophageal reflux disease) IBS (irritable bowel syndrome) Irregular menstrual bleeding (~01/2019) Overweight (BMI 25.0-29.9) Restless leg syndrome Strep sore throat Surgical History H/O laparoscopy History of delivery Hx of tonsillectomy [place] teeth extracted Family History Family History Father Kidney failure Heart disease Colon polyps Bipolar 1 disorder Hypertension CVD (cardiovascular disease) Chronic mental illness Mother Seizure Depression Anxiety Maternal Grandmother Hemorrhagic stroke History of multiple strokes Maternal Grandfather Cancer Family/Other Breast cancer Family/Other Colon cancer Social History Social History Alcohol intake: never Smoking Status: Never smoker Advance Directives: No Advance Directives Information Provided: No Sexual orientation: Straight/Heterosexual Gender identity: female Physical Exam Vital Signs: Vital Signs: Last Vital Signs Temp 98.6 F 07/21/20 18:48 Pulse 98 07/21/20 18:48 Resp 16 07/21/20 18:48 Pulse Ox 99 07/21/20 18:48 Body Mass Index 28.3 Const: General: cooperative, healthy appearing and comfortable Nutritional Appearance: average body habitus Orientation/consciousness: patient oriented x3 Limitations: no limitations HENMT: Head: Yes normal to inspection Ears: hearing grossly normal bilaterally General nose exam: Normal external nose present Face and sinus: Yes normal facial exam Mouth: Normal oral and palatal mucosa present Throat: Yes posterior oropharynx normal Eyes: General: appearance normal, both eyes and all related structures Conjunctivae: conjunctivae normal Sclerae: sclerae normal Pupils: Equal, round and reactive pupils present Neck: Neck: Yes normal visual inspection, Yes full ROM, Yes no lymphadenopathy, Yes trachea midline and Yes supple Thyroid: Thyroid normal Lymphatic: no lymphadenopathy noted Chest: Chest palpation & inspection: normal inspection of the chest Resp: Effort & Inspection: normal respiratory effort and able to speak in complete sentences Auscultation: clear to auscultation bilaterally Cardio: Jugular venous distension: no JVD Rate: regular rate Rhythm: regular rhythm Heart sounds: S1 normal heart sound present, S2 normal heart sound present, no gallops, no murmurs and no rubs Peripheral pulses: Peripheral pulses 2+ throughout GI: Inspection: Yes normal to inspection and No distended Palpation (GI): No hepatosplenomegaly present and No Rebound tenderness present Percussion: Yes normal to percussion Auscultation: normal bowel sounds Skin: General skin exam: no rashes or lesions noted, elasticity normal and turgor normal Neuro: General: patient oriented x3 Cranial nerves: Yes Equal, round and reactive pupils present Psych: Appearance: grossly normal Mental Status: mental status grossly normal Speech and movement: Normal speech and movement present Affect: normal affect Attitude: cooperative Thought process: Normal thought process present Insight: Good insight present (Psych) Course Course Course Narrative: 29-year-old female here today for COVID testing. Patient states that her and her boyfriend started COVID like symptoms with headache, sore throat, cold and cough 4 days ago. Her boyfriend tested positive for COVID today. Patient denies any other symptoms. Awaiting COVID [place] test. Patient denies any other respiratory or cardiac symptoms. Reevaluation(s) Reevaluation #1: No change in patient's symptoms. Patient had negative COVID test. Her boyfriend that lives with her tested positive for COVID. Patient will be discharged home with instructions to stay isolated for 10 days. Patient will need to monitor her symptoms if worse she must return to ER or call her primary care doctor. MDM - URI/Sore Throat Lab Data Labs: Lab Results 07/21/20 Range/Units 18:54 COVID-19 (BEN) Negative (Negative) COVID-19 Clin Com See Note Discharge Plan Discharge Clinical Impression: Upper respiratory infection, viral Patient Disposition: Home, Self-Care Instructions: Viral Syndrome (ED) Additional Instructions: Your COVID test was negative. Because you were exposed to someone with COVID any ear symptoms are headache, sore throat and congestion. The likelihood of you getting COVID is positive. You should quarantine yourself for 10-14 days. Drink plenty fluids make sure you stay hydrated. Please return to emergency department if your symptoms get worse or if you will experience any other concerning symptoms. Follow-up with your PCP in 2-3 days. Prescriptions: No Action ondansetron HCl [Zofran] 4 mg tablet 4 mg PO Q8H PRN (Reason: nausea and vomiting) 30 Days Qty: 90 RF: 6 amoxicillin 500 mg tablet 500 mg PO Q12H 10 Days Qty: 20 RF: 0 amoxicillin-pot clavulanate [Augmentin] 875-125 mg tablet 1 tab PO BID Qty: 20 RF: 0 prochlorperazine maleate 10 mg tablet 10 mg PO Q6H RF: 0 norethindrone-e.estradiol-iron 1 mg-20 mcg (21)/75 mg (7) tablet 1 tab PO DAILY RF: 0 pantoprazole 40 mg tablet,delayed release (DR/EC) 40 mg PO DAILY RF: 0 pramipexole 0.5 mg tablet 0.5 mg PO BEDTIME RF: 0 amitriptyline 25 mg tablet 25 mg PO BEDTIME RF: 0 ibuprofen 800 mg tablet 800 mg PO TID RF: 0 albuterol sulfate 90 mcg/actuation HFA aerosol inhaler inhalation RF: 0 hydroxyzine pamoate [Vistaril] 25 mg capsule 25 mg PO BEDTIME RF: 0 ferrous fumarate 325 mg (106 mg iron) tablet 325 mg PO BID RF: 0 medroxyprogesterone 10 mg tablet 10 mg PO DAILY Qty: 10 RF: 0 Stand Alone Forms: Work/School Release Interventions: ED Discharge Assessment Last Done: 07/21/20 20:03 Discharge Date/Time: 07/21/20 20:05
== END 2020-07-21 20:05 | disposition home or self-care (01) ==
PROVIDERS: Emergency Provider Emergency Medicine Emergency Medical Services; PCP Internal Medicine
DX: J06.9 Acute upper respiratory infection, unspecified (principal); B34.9 Viral infection, unspecified; Z20.822 Contact with and (suspected) exposure to COVID-19; R11.0 Nausea
CPT/HCPCS: 36415; 87635; 99283

== ENCOUNTER 2020-08-12 20:09 | Emergency (ER) | payer OTHER, SELFPAY ==
[2020-08-12 20:11] VITALS: BP 125/75; PULSE 93; RESP 16; TEMP 36.9; O2SAT 99; BMI 28.3
[2020-08-12 20:44] VITALS: BP 114/72; PULSE 91; RESP 16; TEMP 36.8; O2SAT 99
--- NOTE | 2020-08-12 21:13 | ED.NAVMDI ---
HPI - Nausea/Vomiting/Diarrhea General Chief complaint: Abdominal Pain Stated complaint: covid positive, nausea Time Seen by Provider: 08/12/20 20:51 Source: patient Mode of arrival: ambulatory Limitations: no limitations History of Present Illness HPI Narrative: Patient comes emergency room complaining of nausea and vomiting, no diarrhea. Patient tested positive for COVID-19 on 08/05/2020. Since then she has been nauseous, not eating well. Initially in triage, patient stated that she had lower abdominal pain, when I spoke to the patient, she denied abdominal pain. Patient denies fever and chills. Related Data Home Medications Medication Instructions Recorded Confirmed albuterol sulfate 90 mcg/actuation INHALATION 12/26/19 05/26/20 aerosol inhaler amitriptyline 25 mg tablet 25 mg PO BEDTIME 12/26/19 05/26/20 ferrous fumarate 325 mg (106 mg 325 mg PO BID 12/26/19 05/26/20 iron) tablet hydroxyzine pamoate 25 mg capsule 25 mg PO BEDTIME 12/26/19 05/26/20 ibuprofen 800 mg tablet 800 mg PO TID 12/26/19 05/26/20 norethindrone 1 mg-ethinyl 1 tab PO DAILY 12/26/19 05/26/20 estradiol 20 mcg (21)-iron 75 mg (7) tablet pramipexole 0.5 mg tablet 0.5 mg PO BEDTIME 12/26/19 05/26/20 prochlorperazine maleate 10 mg 10 mg PO Q6H 12/26/19 05/26/20 tablet Previous Rx's Medication Instructions Recorded amoxicillin 875 mg-potassium 1 tab PO BID #20 tab 01/20/20 clavulanate 125 mg tablet medroxyprogesterone 10 mg tablet 10 mg PO DAILY #10 tab 02/20/20 ondansetron HCl 4 mg tablet 4 mg PO Q8H PRN 30 Days #90 tab 03/07/20 amoxicillin 500 mg PO Q12H 10 Days #20 tab 05/21/20 pantoprazole 40 mg tablet,delayed 40 mg PO DAILY #90 tab 08/03/20 release ondansetron HCl [Zofran] 4 mg PO Q6H PRN #10 tab 08/12/20 prochlorperazine maleate 5 mg PO TID PRN #10 tab 08/12/20 [Compazine] Allergies Allergy/AdvReac Type Severity Reaction Status Date / Time metronidazole [Flagyl] Allergy Unknown stomach Verified 08/12/20 20:15 upset paroxetine [Paxil] Allergy Unknown vomiting Verified 08/12/20 20:15 clarithromycin [From Biaxin] AdvReac Mild HEADACHE Verified 08/12/20 20:15 lactose [Lactose] AdvReac Mild CRAMPING/VO Verified 08/12/20 20:15 MITING Environmental Allergy Mild ITCHY Uncoded 08/12/20 20:15 EYES/RUNNY NOSE Biaxin Allergy Unknown vomiting Uncoded 08/12/20 20:15 lactose Allergy Unknown Diarrhea Uncoded 08/12/20 20:15 milk Allergy Unknown Diarrhea Uncoded 08/12/20 20:15 seasonal Allergy Unknown Itching Uncoded 08/12/20 20:15 From PAXIL AdvReac Intermediate NAUSEA & Uncoded 08/12/20 20:15 VOMITING Review of Systems Review of Systems: Constitutional : No Weight loss, No Fever, No Chills, No Night Sweats, No Fatigue, No Malaise ENT/Mouth : No Hearing loss, No Ear Pain, No Nasal Congestion, No Sinus Pain, No Hoarseness, No sore throat, No Rhinorrhea, No Swallowing Difficulty Eyes: No Eye Pain, No Swelling, No Redness, No Foreign Body, No Discharge, No Vision Changes Cardiovascular : No Chest Pain, No SOB, No Dyspnea on Exertion, No Orthopnea, No Edema, No Palpitations Respiratory : No Cough, No Sputum, No Wheezing, No Smoke Exposure, No Dyspnea Gastrointestinal : Nausea and vomiting, No Diarrhea, No Constipation, No abdominal Pain, No Hematochezia, No Melena Genitourinary : no irregular bleeding, No Dysuria, No Urinary Frequency, No Hematuria, No Urinary Incontinence, No Urgency, No Flank Pain, No Urinary Flow Changes, No Hesitancy Musculoskeletal : No joint pain, No Myalgias, No Joint Swelling Skin : No Skin Lesions, No rash Neuro : No Weakness, No Numbness, No Paresthesias, No Loss of Consciousness, No Dizziness, No Headache Psych : No Anxiety/Panic, No Depression, No SI/HI/AH/VH, No Social Issues, Heme/Lymph: No Bruising, No Bleeding,No Lymphadenopathy Endocrine : No Polyuria, No Polydipsia, No Temperature Intolerance PMFSH Past Medical History Medical History Anxiety delivery delivered Depression Fibromyalgia Flu-like symptoms GERD (gastroesophageal reflux disease) IBS (irritable bowel syndrome) Irregular menstrual bleeding (~01/2019) Overweight (BMI 25.0-29.9) Restless leg syndrome Strep sore throat Surgical History H/O laparoscopy History of delivery Hx of tonsillectomy [place] teeth extracted Family History Family History Father Kidney failure Heart disease Colon polyps Bipolar 1 disorder Hypertension CVD (cardiovascular disease) Chronic mental illness Mother Seizure Depression Anxiety Maternal Grandmother Hemorrhagic stroke History of multiple strokes Maternal Grandfather Cancer Family/Other Breast cancer Family/Other Colon cancer Social History Social History Alcohol intake: never Smoking Status: Never smoker Use of substances other than those prescribed or required for medical reasons: No Advance Directives: No Advance Directives Information Provided: No Patient : No Sexual orientation: Straight/Heterosexual Gender identity: female Physical Exam Vital Signs: Vital Signs: Last Vital Signs Temp 98.2 F 08/12/20 20:44 Pulse 91 08/12/20 20:44 Resp 16 08/12/20 20:44 BP 114/72 08/12/20 20:44 Pulse Ox 99 08/12/20 20:44 Body Mass Index 28.3 Appearance: Alert. Oriented X3. No acute distress. Eyes: Pupils equal, round and reactive to light. ENT: Pharynx normal. Neck: Normal inspection. Neck supple. No lymph nodes noted. No crepitus CVS: Normal heart rate and rhythm. Pulses normal. Normal S1 and S2 Respiratory: No respiratory distress. Breath sounds normal. No Wheezing. No rales Abdomen: Soft and nontender. No rigidity. No distention. good BS x4 Skin: Skin warm and dry. Normal skin color. Normal skin turgor. Extremities: No lower extremity edema. No lower extremity edema. No Lacerations. No Rash Neuro: Oriented X 3. No motor deficit. No sensory deficit. Moving all extermities. No slurred speech. Course Course Course Narrative: I discussed the labs with the patient, patient will be discharged home with as a medication. Patient oxygen saturation remains constantly at 98 99% on room air MDM - Nausea/Vomiting/Diarrhea Lab Data Result diagrams: 08/12/20 21:21 08/12/20 21:20 Labs: Lab Results 08/12/20 08/12/20 08/12/20 Range/Units 21:20 21:20 21:21 WBC 4.6 L (4.8-10.8) X10*3/uL RBC 4.89 (4.20-5.50) X10*6/uL Hgb 13.4 (12.0-16.0) g/dl Hct 40.3 (37-47) % MCV 82.4 (80-98) fL MCH 27.4 (27.0-33.0) pg MCHC 33.3 (31.0-35.0) g/dl RDW 11.9 (11.0-16.0) % Plt Count 279 (160-400) X10*3/uL MPV 9.9 (9.4-12.3) fL Immature Gran % (Auto) 0.2 (0.0-0.4) % Neut % (Auto) 59.9 (45-73) % Lymph % (Auto) 33.0 (20-40) % Roberts % (Auto) 6.3 (2-11) % Eos % (Auto) 0.6 (0-4) % Baso % (Auto) 0.0 (0-2) % Lymph # (Auto) 1.5 (1.2-4.9) X10*3/uL Roberts # (Auto) 0.3 (0.1-1.2) X10*3/uL Eos # (Auto) 0.0 (0.0-0.4) X10*3/uL Baso # (Auto) 0.0 (0.0-0.2) X10*3/uL Abs Immat Gran (auto) 0.01 (0.00-0.03) X10*3/uL Absolute Neuts (auto) 2.8 (2.0-8.3) X10*3/uL Absolute Nucleated RBC 0.000 (0.0-0.012) X10*3/uL Nucleated RBC % (auto) 0.0 (0.0-0.2) /100WBC Sodium 141 (135-145) mmol/L Potassium 4.0 (3.3-5.1) mmol/L Chloride 106 (96-108) mmol/L Carbon Dioxide 25 (22-29) mmol/L Anion Gap 14 (12-20) BUN 7 L (9-16) mg/dL Creatinine 0.75 (0.5-1.4) mg/dL Estim Creat Clear Calc 103.7 Estimated GFR > 60 Random Glucose 93 (60-115) mg/dL Calcium 9.4 D (8.4-10.2) mg/dL Total Bilirubin 0.7 (0.0-1.0) mg/dL Direct Bilirubin 0.3 (0.0-0.5) mg/dL AST 23 (5-31) U/L ALT 21 (0-31) U/L Alkaline Phosphatase 76 (39-117) U/L Total Protein 7.3 (6.5-8.0) g/dL Albumin 4.4 (3.5-5.0) g/dL Lipase 19 (8-78) U/L Discharge Plan Discharge Clinical Impression: Nausea & vomiting Qualifiers: Vomiting type: unspecified Vomiting Intractability: unspecified Qualified Code(s): R11.2 - Nausea with vomiting, unspecified Patient Disposition: Home, Self-Care Instructions: Acute Nausea and Vomiting (ED) Additional Instructions: Please follow-up with your primary care physician tomorrow. If you have any worsening or new symptoms, please return to the emergency room or call 911 Prescriptions: New ondansetron HCl [Zofran] 4 mg tablet 4 mg PO Q6H PRN (Reason: nausea and vomiting) Qty: 10 RF: 0 prochlorperazine maleate [Compazine] 5 mg tablet 5 mg PO TID PRN (Reason: nausea and vomiting) Qty: 10 RF: 0 No Action ondansetron HCl [Zofran] 4 mg tablet 4 mg PO Q8H PRN (Reason: nausea and vomiting) 30 Days Qty: 90 RF: 6 pantoprazole 40 mg tablet,delayed release (DR/EC) 40 mg PO DAILY Qty: 90 RF: 0 amoxicillin 500 mg tablet 500 mg PO Q12H 10 Days Qty: 20 RF: 0 amoxicillin-pot clavulanate [Augmentin] 875-125 mg tablet 1 tab PO BID Qty: 20 RF: 0 prochlorperazine maleate 10 mg tablet 10 mg PO Q6H RF: 0 norethindrone-e.estradiol-iron 1 mg-20 mcg (21)/75 mg (7) tablet 1 tab PO DAILY RF: 0 pramipexole 0.5 mg tablet 0.5 mg PO BEDTIME RF: 0 amitriptyline 25 mg tablet 25 mg PO BEDTIME RF: 0 ibuprofen 800 mg tablet 800 mg PO TID RF: 0 albuterol sulfate 90 mcg/actuation HFA aerosol inhaler inhalation RF: 0 hydroxyzine pamoate [Vistaril] 25 mg capsule 25 mg PO BEDTIME RF: 0 ferrous fumarate 325 mg (106 mg iron) tablet 325 mg PO BID RF: 0 medroxyprogesterone 10 mg tablet 10 mg PO DAILY Qty: 10 RF: 0
[2020-08-12] MEDS: ondansetron HCL 4 MG/2 ML VIAL IVPUSH (21:22)
[2020-08-12] MEDS: 0.9 % Sodium Chloride 1,000 ML 999 ML IVCONT (21:23)
[2020-08-12 21:28] LABS: MANUAL DIFF FLAG NO
[2020-08-12 21:29] LABS: Eosinophils Percent Auto 0.6 % (0-4); Hematocrit 40.3 % (37-47); Hemoglobin 13.4 g/dl (12.0-16.0); Imm Gran Abs Auto 0.01 X10*3/uL (0.00-0.03); Imm Gran Pct Auto 0.2 % (0.0-0.4); Lymphocytes Absolute Auto 1.5 X10*3/uL (1.2-4.9); Mean Corpuscular HGB Conc 33.3 g/dl (31.0-35.0); Mean Corpuscular Hemoglobin 27.4 pg (27.0-33.0); Mean Corpuscular Volume 82.4 fL (80-98); Mean Platelet Volume 9.9 fL (9.4-12.3); Monocytes Absolute Auto 0.3 X10*3/uL (0.1-1.2); Monocytes Percent Auto 6.3 % (2-11); Neutrophils Absolute Auto 2.8 X10*3/uL (2.0-8.3); Neutrophils Percent Auto 59.9 % (45-73); Platelet Count 279 X10*3/uL (160-400); Red Blood Count 4.89 X10*6/uL (4.20-5.50); Red Cell Distribution Width 11.9 % (11.0-16.0); White Blood Count 4.6 X10*3/uL (4.8-10.8)
[2020-08-12 21:49] LABS: Anion Gap 14 (12-20); Blood Urea Nitrogen 7 mg/dL (9-16); Calcium 9.4 mg/dL (8.4-10.2); Carbon Dioxide 25 mmol/L (22-29); Chloride 106 mmol/L (96-108); Creatinine Clr Calc Pharmacy 103.7; Estimated Glomerular Filt Rate > 60; Glucose Random 93 mg/dL (60-115); Sodium 141 mmol/L (135-145)
[2020-08-12 21:51] LABS: Alanine Aminotransferase 21 U/L (0-31); Albumin Level 4.4 g/dL (3.5-5.0); Alkaline Phosphatase 76 U/L (39-117); Aspartate Amino Transferase 23 U/L (5-31); Bilirubin Direct 0.3 mg/dL (0.0-0.5); Bilirubin Total 0.7 mg/dL (0.0-1.0); Lipase 19 U/L (8-78); Total Protein 7.3 g/dL (6.5-8.0)
== END 2020-08-12 23:11 | disposition home or self-care (01) ==
PROVIDERS: Emergency Provider Emergency Medicine
DX: R11.2 Nausea with vomiting, unspecified (principal); Z86.16 Personal history of COVID-19; Z79.899 Other long term (current) drug therapy
CPT/HCPCS: 36415; 80048; 80076; 83690; 85025; 96365; 96375; 99284; J2405

== ENCOUNTER 2020-09-07 09:03 | Outpatient (REF) | payer OTHER, SELFPAY ==
[2020-09-08 12:56] LABS: BV Int Neg Control Negative (Negative); BV Int Pos Control Positive (Positive)
== END 2020-09-07 09:04 | disposition home or self-care (01) ==
LOC: HO.LAB 09:03
PROVIDERS: Visit Provider Advanced Practice Midwife
DX: Z30.431 Encounter for routine checking of intrauterine contraceptive device (principal); N89.8 Other specified noninflammatory disorders of vagina
CPT/HCPCS: 87480; 87510; 87660; 99212

== ENCOUNTER 2020-09-19 15:13 | Outpatient (REF) | payer OTHER, SELFPAY ==
[2020-09-19 16:21] LABS: Thyroid Stimulating Hormone 0.31 uIU/mL (0.32-4.0)
== END 2020-09-19 15:14 | disposition home or self-care (01) ==
LOC: HO.LAB 15:13
PROVIDERS: PCP Internal Medicine; Visit Provider Internal Medicine
DX: L65.9 Nonscarring hair loss, unspecified (principal)
CPT/HCPCS: 36415; 84443

== ENCOUNTER → 2020-12-06 15:01 | Outpatient (BNVA) | payer OTHER, SELFPAY | PROVIDERS: PCP Internal Medicine; Visit Provider Internal Medicine | DX: E05.90 Thyrotoxicosis, unspecified without thyrotoxic crisis or storm (principal); L65.9 Nonscarring hair loss, unspecified; Z88.8 Allergy status to other drugs, medicaments and biological substances; J30.2 Other seasonal allergic rhinitis; Z91.011 Allergy to milk products; Z79.899 Other long term (current) drug therapy | CPT/HCPCS: 99202 ==

== ENCOUNTER 2020-12-14 08:17 | Outpatient (REF) | payer OTHER, SELFPAY ==
[2020-12-14 09:59] LABS: Thyroid Stimulating Hormone 0.38 uIU/mL (0.32-4.0)
[2020-12-15 09:42] LABS: Thyroglobulin Antibodies <1 IU/mL (< or = 1); Thyroid Peroxidase Antibodies 4 IU/mL (<9)
[2020-12-15 14:02] LABS: Triiodothyronine T3 Total 117 ng/dL (76-181)
[2020-12-17 20:01] LABS: Thyrotropin Receptor Antibody 1.25 IU/L (<=2.00)
[2020-12-20 15:31] LABS: Thyroid Stimulating Immunoglob <89 % baseline (<140)
== END 2020-12-14 08:18 | disposition home or self-care (01) ==
LOC: HO.LAB 08:17
PROVIDERS: PCP Internal Medicine; Visit Provider Internal Medicine
DX: E05.90 Thyrotoxicosis, unspecified without thyrotoxic crisis or storm (principal)
CPT/HCPCS: 36415; 83520; 84439; 84443; 84445; 84480; 86376; 86800

== ENCOUNTER 2020-12-21 13:05 | Outpatient (REF) | payer OTHER, SELFPAY ==
[2020-12-22 15:12] LABS: CT PCR NOT DETECTED (Not Detect.); NG PCR NOT DETECTED (Not Detect.)
[2020-12-22 15:23] LABS: BV Int Neg Control Negative (Negative); BV Int Pos Control Positive (Positive)
[2020-12-27 06:00] LABS: HPV 16 RNA NOT DETECTED (NOT DETECTED); HPV mRNA E6/E7 rflx Detected (Not Detected)
== END 2020-12-21 13:06 | disposition home or self-care (01) ==
LOC: HO.LAB 13:05
PROVIDERS: PCP Internal Medicine; Visit Provider Advanced Practice Midwife
DX: Z01.411 Encounter for gynecological examination (general) (routine) with abnormal findings (principal); Z11.51 Encounter for screening for human papillomavirus (HPV); Z11.3 Encounter for screening for infections with a predominantly sexual mode of transmission; N89.8 Other specified noninflammatory disorders of vagina; Z20.2 Contact with and (suspected) exposure to infections with a predominantly sexual mode of transmission
CPT/HCPCS: 87480; 87491; 87510; 87591; 87624; 87625; 87660; 88142

== ENCOUNTER 2021-01-16 11:24 | Outpatient (REF) | payer OTHER, SELFPAY ==
--- NOTE | ~2021-01-16 | US_ITS ---
EXAMINATION: US THYROID CLINICAL INFORMATION: Thyrotoxicosis, unspecified without thyrotoxic crisis or storm. COMPARISON: None TECHNIQUE: Linear transducer grayscale and color Doppler examination with attention to the region of the thyroid. FINDINGS: SIZE: Measurements of the thyroid lobes and nodules are given in sagittal, anteroposterior and transverse dimensions respectively. Right Thyroid Lobe: 4.1 x 1.5 x 1.8 cm, volume 5.4 mL. Parenchyma: The gland echotexture is homogeneous. Thyroid vascularity is normal. Left Thyroid Lobe: 4.4 x 1.8 x 1.6 cm, volume 6.8 mL. Parenchyma: The gland echotexture is homogeneous. Thyroid vascularity is normal. Isthmus: 0.2 cm in maximum AP dimension. Estimated total number of nodules greater than or equal to 1 cm: 0. Direct Service Worker nodules are described as follows: 1. Location: Left mid pole. Size: 2.4 x 0.3 x 0.2 cm, volume 0.01 mL. Nodule characteristics: ACR TI-RADS total points: 0 ACR TI-RADS category: 1 2. Location: Right upper pole. Size: 0.3 x 0.3 x 0.2 cm, volume 0.01 mL. Nodule characteristics: Composition: Cystic(0). ACR TI-RADS total points: 0 ACR TI-RADS category: 1 3. Location: Right mid pole. Size: 0.5 x 0.4 x 0.4 cm, volume 0.04 mL. Nodule characteristics: Composition: Cystic(0). ACR TI-RADS total points: 0 ACR TI-RADS category: 1 NODES: No lymphadenopathy is seen in the tissue surrounding the thyroid gland. US/US thyroid IMPRESSION: Normal thyroid ultrasound with subcentimeter nonsuspicious nodules. ACR TI-RADS RECOMMENDATION REFERENCE: Ultrasound-guided fine-needle aspiration, followup ultrasound, no further follow up. * TR1 (0 point) and TR 2 (2 points): No FNA or follow up. * TR3 (3 points): FNA if more than or equal to 2.5 cm in maximum dimension, followup ultrasound in 1, 3 and 5 years if 1.5 to 2.4 cm in maximum dimension. * TR4 (4-6 points): FNA if more than or equal to 1.5 cm in maximum dimension, followup ultrasound in 1, 2, 3 and 5 years if 1 to 1.4 cm in maximum dimension. * TR5 (more than or equal to 7 points): FNA if more than or equal to 1 cm in maximum dimension, followup ultrasound every year for 5 years if 0.5 to 0.9 cm in maximum dimension. * TR3, TR4 or TR5 nodules that are below the size threshold for follow up receive no follow up.
== END 2021-01-16 11:25 | disposition home or self-care (01) ==
LOC: HO.US 11:24
PROVIDERS: PCP Internal Medicine; Visit Provider Internal Medicine
DX: E05.90 Thyrotoxicosis, unspecified without thyrotoxic crisis or storm (principal)
CPT/HCPCS: 76536

== ENCOUNTER 2021-01-22 15:28 | Outpatient (REF) | payer OTHER, SELFPAY | END 2021-01-22 15:29 | disposition home or self-care (01) | LOC: HO.LAB 15:28 | PROVIDERS: Visit Provider Internal Medicine | DX: Z20.822 Contact with and (suspected) exposure to COVID-19 (principal) | CPT/HCPCS: C9803; U0003; U0005 ==

== ENCOUNTER 2021-04-16 12:29 | Outpatient (REF) | payer OTHER, SELFPAY ==
[2021-04-16 13:14] LABS: Appearance Urine CLEAR; Color Urine YELLOW; Glucose Urine UA NEG (NEG); Leukocyte Esterase Urine NEG (NEG); Nitrite Urine NEG (NEG); UACC Culture Trigger NO; Urine Blood 3+ (NEG); Urine Ketones NEG (NEG); Urine Protein NEG (NEG-TRACE)
[2021-04-16 14:09] LABS: Bacteria Urine TRACE /LPF; Squamous Epithelial Cell Urine 2+ /LPF; WBC Urine 0 /HPF (0-4)
== END 2021-04-16 12:30 | disposition home or self-care (01) ==
LOC: HO.LAB 12:29
PROVIDERS: PCP Internal Medicine; Visit Provider Internal Medicine
DX: R30.0 Dysuria (principal)
CPT/HCPCS: 81001

== ENCOUNTER 2021-04-24 12:37 | Outpatient (REF) | payer OTHER, SELFPAY ==
--- NOTE | ~2021-04-24 | XR_ITS ---
EXAMINATION: XR ABDOMEN KUB CLINICAL INDICATION: Hematuria. COMPARISON: None TECHNIQUE: AP view of the abdomen. FINDINGS: There is moderate gas seen in the colon without any significant distention. There is no organomegaly. No radiopaque calculi. There is a IUD in the pelvis. No gross bony abnormality except for mild scoliosis.. XR/XR KUB IMPRESSION: Moderate constipation.
== END 2021-04-24 12:38 | disposition home or self-care (01) ==
LOC: HO.XRAY 12:37
PROVIDERS: PCP Internal Medicine; Visit Provider Internal Medicine
DX: R31.9 Hematuria, unspecified (principal)
CPT/HCPCS: 74018

== ENCOUNTER 2021-06-03 13:21 | Outpatient (REF) | payer OTHER, SELFPAY ==
[2021-06-03 15:27] LABS: Free T4 (Free Thyroxine) 0.81 ng/dL (0.71-1.85); Thyroid Stimulating Hormone 0.41 uIU/mL (0.32-4.0)
[2021-06-04 17:56] LABS: Triiodothyronine T3 Total 97 ng/dL (76-181)
== END 2021-06-03 13:22 | disposition home or self-care (01) ==
LOC: HO.LAB 13:21
PROVIDERS: PCP Internal Medicine; Visit Provider Internal Medicine
DX: E05.90 Thyrotoxicosis, unspecified without thyrotoxic crisis or storm (principal); E04.2 Nontoxic multinodular goiter
CPT/HCPCS: 36415; 84439; 84443; 84480; 99212

== ENCOUNTER 2022-01-13 12:27 | Outpatient (REF) | payer OTHER, SELFPAY ==
[2022-01-13 13:31] LABS: Alanine Aminotransferase 8 U/L (0-31); Albumin Level 4.5 g/dL (3.5-5.0); Alkaline Phosphatase 60 U/L (39-117); Anion Gap 14 (12-20); Aspartate Amino Transferase 15 U/L (5-31); Bilirubin Total 0.7 mg/dL (0.0-1.0); Blood Urea Nitrogen 9 mg/dL (9-16); Calcium 9.5 mg/dL (8.4-10.2); Carbon Dioxide 22 mmol/L (22-29); Chloride 106 mmol/L (96-108); Cholesterol 186 mg/dL; Estimated Glomerular Filt Rate > 60; Glucose Fasting 85 mg/dL (60-99); HDL Cholesterol 45 mg/dL; LDL Cholesterol Calculated 130 mg/dl; Potassium 4.3 mmol/L (3.3-5.1); Sodium 138 mmol/L (135-145); Total Protein 7.3 g/dL (6.5-8.0); Triglycerides 56 mg/dL
== END 2022-01-13 12:28 | disposition home or self-care (01) ==
LOC: HO.LAB 12:27
PROVIDERS: PCP Internal Medicine; Visit Provider Internal Medicine
DX: Z00.00 Encounter for general adult medical examination without abnormal findings (principal)
CPT/HCPCS: 36415; 80053; 80061

== ENCOUNTER 2022-03-18 08:04 | Outpatient (REF) | payer OTHER, SELFPAY ==
[2022-03-18 09:50] LABS: Hemoglobin 13.5 g/dl (12.0-16.0); Mean Corpuscular HGB Conc 33.8 g/dl (31.0-35.0); Mean Corpuscular Hemoglobin 28.5 pg (27.0-33.0); Mean Corpuscular Volume 84.6 fL (80.0-98.0); Mean Platelet Volume 9.4 fL (9.4-12.3); Platelet Count 314 X10*3/uL (160-400); Red Blood Count 4.73 X10*6/uL (4.20-5.50); Red Cell Distribution Width 11.8 % (11.0-16.0); White Blood Count 4.5 X10*3/uL (4.8-10.8)
[2022-03-18 13:46] LABS: CT PCR NOT DETECTED (Not Detect.); NG PCR NOT DETECTED (Not Detect.)
[2022-03-19 04:33] LABS: Syphilis Screen Nonreactive (Nonreactive)
[2022-03-19 05:45] LABS: HBc Num1 0.09 S/CO (0.00-0.79); Hepatitis B Core Antibody Nonreactive (Nonreactive); ~HepC Num1 0.09 S/CO (0.00-0.79); ~Hepatitis C Antibody Nonreactive (Nonreactive)
[2022-03-19 06:12] LABS: HIV AB/AG Nonreactive (Nonreactive); HIV Num 1 0.24 S/CO (0.00-0.99)
[2022-03-19 11:11] LABS: BV Int Neg Control Negative (Negative); BV Int Pos Control Positive (Positive)
[2022-03-21 05:48] LABS: HPV mRNA E6/E7 rflx Not Detected (Not Detected)
== END 2022-03-18 08:05 | disposition home or self-care (01) ==
LOC: HO.LAB 08:04
PROVIDERS: PCP Internal Medicine; Visit Provider Advanced Practice Midwife
DX: Z01.419 Encounter for gynecological examination (general) (routine) without abnormal findings (principal); R10.2 Pelvic and perineal pain; R10.31 Right lower quadrant pain; R35.0 Frequency of micturition; R30.0 Dysuria; Z97.5 Presence of (intrauterine) contraceptive device; Z20.2 Contact with and (suspected) exposure to infections with a predominantly sexual mode of transmission
CPT/HCPCS: 85027; 86704; 86780; 86803; 87389; 87480; 87491; 87510; 87591; 87624; 87660; 88142

== ENCOUNTER 2022-04-11 14:17 | Outpatient (REF) | payer OTHER, SELFPAY ==
[2022-04-11 16:15] LABS: Influenza A PCR NEGATIVE (Negative); Influenza B PCR NEGATIVE (Negative); Resp Syncy Virus RNA Qual PCR NEGATIVE (Negative); SARS COV2 PCR INHOUSE NEGATIVE (Negative)
== END 2022-04-11 14:18 | disposition home or self-care (01) ==
LOC: HO.LNP 14:17
PROVIDERS: Visit Provider Nurse Practitioner Family
DX: Z20.822 Contact with and (suspected) exposure to COVID-19 (principal); R09.89 Other specified symptoms and signs involving the circulatory and respiratory systems
CPT/HCPCS: 0241U

== ENCOUNTER 2022-04-16 13:03 | Outpatient (REF) | payer OTHER, SELFPAY ==
--- NOTE | ~2022-04-16 | US_ITS ---
EXAMINATION: US PELVIS COMPLETE CLINICAL INFORMATION: Pelvic pain COMPARISON: Pelvic ultrasound 04/02/2020 TECHNIQUE: Transabdominal and transvaginal imaging was performed. FINDINGS: The uterus is of normal size and echogenicity measuring 7.7 x 3.1 x 4.3 cm. A regular homogeneous endometrium is identified measuring 0.5 cm. Trace fluid in the endocervical canal. Intrauterine device appears in place. Both ovaries are of normal size and echogenicity. The right measures 3.3 x 1.8 x 2.2 cm for a volume of 6.8 mL. The left measures 3.6 x 2.4 x 2.6 cm for a volume of 11.8 mL. There is trace simple pelvic free fluid within physiologic limits of volume. US/US pelvic and transvaginal IMPRESSION: No acute findings to explain symptoms of pelvic pain. Trace fluid within the endocervical canal. Intrauterine device appears in place.
== END 2022-04-16 13:04 | disposition home or self-care (01) ==
LOC: HO.US 13:03
PROVIDERS: PCP Internal Medicine; Visit Provider Advanced Practice Midwife
DX: R10.2 Pelvic and perineal pain (principal)
CPT/HCPCS: 76830; 76856

== ENCOUNTER → 2022-04-28 11:03 | Outpatient (BNVA) | payer OTHER, SELFPAY | PROVIDERS: PCP Internal Medicine; Visit Provider Advanced Practice Midwife | DX: Z71.2 Person consulting for explanation of examination or test findings (principal); R10.2 Pelvic and perineal pain | CPT/HCPCS: 99212 ==

== ENCOUNTER 2022-05-20 16:19 | Outpatient (REF) | payer OTHER, SELFPAY ==
--- NOTE | ~2022-05-20 | US_ITS ---
EXAMINATION: US THYROID CLINICAL INFORMATION: Nontoxic multinodular goiter. COMPARISON: Ultrasound soft tissue head/neck thyroid dated 01/16/2021. TECHNIQUE: Linear transducer grayscale and color Doppler examination with attention to the region of the thyroid. FINDINGS: SIZE: Measurements of the thyroid lobes and nodules are given in sagittal, anteroposterior and transverse dimensions respectively. Right Thyroid Lobe: 4.5 x 1.6 x 1.6 cm, volume 6.0 mL. Previously 4.1 x 1.5 x 1.8 cm, volume 5.4 mL. Parenchyma: The gland echotexture is homogeneous. Thyroid vascularity is normal. Left Thyroid Lobe: 4.0 x 2.1 x 1.5 cm, volume 6.4 mL. Previously 4.4 x 1.8 x 1.6 cm, volume 6.8 mL. Parenchyma: The gland echotexture is homogeneous. Thyroid vascularity is normal. Isthmus: 0.2 cm in maximum AP dimension. Previously 0.2 cm. Estimated total number of nodules greater than or equal to 1 cm: 0. Insurance Service Representative nodules are described as follows: 1. Location: Right mid inferior. Size: 0.5 x 0.4 x 0.4 cm, volume 0.04 mL. Previously: 0.5 x 0.4 x 0.4 cm, volume 0.04 mL. Nodule characteristics: Composition: Cystic(0). ACR TI-RADS total points: 0 ACR TI-RADS category: 1 Significant change in size (>/= 20% in 2 dimensions and minimal increase of 2 mm or 50% or greater increase in volume): No Change in features: No Change in ACR TI-RADS risk category: No NODES: No lymphadenopathy is seen in the tissue surrounding the thyroid gland. US/US thyroid IMPRESSION: Normal size, echogenicity and vascularity of the thyroid gland with redemonstration of subcentimeter cysts, some that are colloid cysts, not meeting size criteria for further evaluation according to the guidelines below. ACR TI-RADS RECOMMENDATION REFERENCE: Ultrasound-guided fine-needle aspiration, followup ultrasound, no further follow up. * TR1 (0 point) and TR2 (2 points): No FNA or follow up * TR3 (3 points): FNA if more than or equal to 2.5 cm in maximum dimension, followup ultrasound in 1, 3 and 5 years if 1.5 to 2.4 cm in maximum dimension. * TR4 (4-6 points): FNA if more than or equal to 1.5 cm in maximum dimension, followup ultrasound in 1, 2, 3 and 5 years if 1 to 1.4 cm in maximum dimension. * TR5 (more than or equal to 7 points): FNA if more than or equal to 1 cm in maximum dimension, followup ultrasound every year for 5 years if 0.5 to 0.9 cm in maximum dimension. * TR3, TR4 or TR5 nodules that are below the size threshold for follow up receive no follow up.
== END 2022-05-20 16:20 | disposition home or self-care (01) ==
LOC: HO.US 16:19
PROVIDERS: PCP Internal Medicine; Visit Provider Internal Medicine
DX: E04.2 Nontoxic multinodular goiter (principal)
CPT/HCPCS: 76536

== ENCOUNTER 2022-08-27 12:59 | Outpatient (REF) | payer OTHER, SELFPAY ==
[2022-08-27 18:39] LABS: CT PCR NOT DETECTED (Not Detect.); NG PCR NOT DETECTED (Not Detect.)
[2022-08-28 08:55] LABS: BV Int Neg Control Negative (Negative); BV Int Pos Control Positive (Positive)
== END 2022-08-27 13:00 | disposition home or self-care (01) ==
LOC: HO.LAB 12:59
PROVIDERS: PCP Internal Medicine; Visit Provider Advanced Practice Midwife
DX: R10.2 Pelvic and perineal pain (principal); N89.8 Other specified noninflammatory disorders of vagina; Z97.5 Presence of (intrauterine) contraceptive device; Z79.899 Other long term (current) drug therapy
CPT/HCPCS: 0353U; 87086; 87480; 87510; 87660; 99212

== ENCOUNTER 2022-08-27 13:43 | Outpatient (REF) | payer OTHER, SELFPAY | END 2022-08-27 13:44 | disposition home or self-care (01) | LOC: HO.LNP 13:43 | PROVIDERS: Visit Provider Advanced Practice Midwife | DX: Z13.89 Encounter for screening for other disorder (principal) ==

== ENCOUNTER 2022-09-03 14:46 | Outpatient (REF) | payer OTHER, SELFPAY ==
--- NOTE | ~2022-09-03 | US_ITS ---
EXAMINATION: US PELVIS COMPLETE CLINICAL INFORMATION: Pain COMPARISON: Pelvic ultrasound 04/16/2022 TECHNIQUE: Transabdominal and transvaginal imaging was performed. FINDINGS: The uterus is of normal size and echogenicity measuring 7.6 x 3.5 x 4.8 cm. A regular homogeneous endometrium is identified measuring 1.0 cm. Intrauterine device in place. Nabothian cysts in the cervix. Right ovary is of normal size and echogenicity. The right measures 3.6 x 1.5 x 2.4 cm for a volume of 6.8 mL. The left measures 4.0 x 2.4 x 3.1 cm for a volume of 16.2 mL is remarkable for a 3.4 x 1.9 x 2.6 cm simple unilocular ovarian cyst.. There is small simple volume of pelvic free fluid. US/US pelvic and transvaginal IMPRESSION: 1. A 3.4 cm simple unilocular left ovarian cyst almost certainly benign. No follow-up imaging recommended. 2. Small simple volume of free fluid in the pelvis, which may be within physiologic limits. 3. Intrauterine device in place.
== END 2022-09-03 14:47 | disposition home or self-care (01) ==
LOC: HO.US 14:46
PROVIDERS: PCP Internal Medicine; Visit Provider Advanced Practice Midwife
DX: R10.2 Pelvic and perineal pain (principal); R10.9 Unspecified abdominal pain; Z97.5 Presence of (intrauterine) contraceptive device
CPT/HCPCS: 76830; 76856

== ENCOUNTER → 2022-09-09 09:20 | Outpatient (BNVA) | payer OTHER, SELFPAY | PROVIDERS: PCP Internal Medicine; Visit Provider Advanced Practice Midwife ==

== ENCOUNTER 2022-10-27 09:22 | Outpatient (AMB) | payer OTHER, SELFPAY ==
--- NOTE | 2022-10-27 09:22 | MHC.OFFVIS ---
Intake Intake Visit Reasons: F/U Multinodular thyroid Allergies Seasonal Allergies Allergy (Intermediate, Verified 10/27/22 09:51) Itching environmental allergies Allergy (Mild, Verified 10/27/22 09:51) itchy eyes, runny nose metronidazole [Flagyl] Adverse Reaction (Intermediate, Verified 10/27/22 09:51) stomach upset paroxetine [Paxil] Adverse Reaction (Intermediate, Verified 10/27/22 09:51) vomiting clarithromycin [From Biaxin] Adverse Reaction (Mild, Verified 10/27/22 09:51) Headache lactose [Lactose] Adverse Reaction (Mild, Verified 10/27/22 09:51) cramping, vomiting Medication List - Last Reconciled 10/27/22 by Aye Mon, levonorgestrel intrauterine ondansetron 4 mg PO Q6-8H PRN pramipexole 0.5 mg PO BEDTIME prochlorperazine maleate (Compazine) 5 mg PO TID PRN 30 days venlafaxine ER 75 mg PO QAM HPI HPI Comments History of Present Illness Details 31 YO Female with no significant PMHx who is seen in F/U for hyperthyroidism. She presented to Dr. Henry complaining of hair loss. This prompted checking of a TSH, which was slightly low at 0.3. She was subsequently referred to Endocrinology. She initially reported hair loss and weight loss, but otherwise denied any symptoms of hyperthyroidism. She was taking a multivitamin containing biotin. She stopped this and repeated labs 4 days later, with TSH WNL. All antibodies negative. She had an US of the thyroid which was misread. Report stating she has a 2.4 cm thyroid nodule, but review of images reveals only subcentimeter thyroid nodules. Repeat thyroid US revealed only a solitary subcentimeter nodule. She denies any tenderness in the neck or difficulty swallowing. US Thyroid: 05/20/2022 Right Thyroid Lobe: 4.5 x 1.6 x 1.6 cm, volume 6.0 mL. Previously 4.1 x 1.5 x 1.8 cm, volume 5.4 mL. Parenchyma: The gland echotexture is homogeneous. Thyroid vascularity is normal. Left Thyroid Lobe: 4.0 x 2.1 x 1.5 cm, volume 6.4 mL. Previously 4.4 x 1.8 x 1.6 cm, volume 6.8 mL. Parenchyma: The gland echotexture is homogeneous. Thyroid vascularity is normal. Isthmus: 0.2 cm in maximum AP dimension. Previously 0.2 cm. Estimated total number of nodules greater than or equal to 1 cm: 0. Armature Bander nodules are described as follows: 1.? Location: Right mid inferior. ?? ? Size: 0.5 x 0.4 x 0.4 cm, volume 0.04 mL. ?? ? Previously: 0.5 x 0.4 x 0.4 cm, volume 0.04 mL. ?? ? Nodule characteristics: ?? ? Composition: Cystic(0). ?? ? ACR TI-RADS total points: 0 ?? ? ACR TI-RADS category: 1 ? Significant change in size (>/= 20% in 2 dimensions and minimal increase of 2 mm or 50% or greater increase in volume): No ?? ? Change in features: No ?? ? Change in ACR TI-RADS risk category: No NODES: No lymphadenopathy is seen in the tissue surrounding the thyroid gland. Labs: No recent pertinent labs to review [facility]LY [facility] Medical History Abnormal Pap smear of vagina Anxiety delivery delivered Depression Fibromyalgia SILVIA (generalized anxiety disorder) GERD (gastroesophageal reflux disease) Hair loss Hematuria Hyperthyroidism IBS (irritable bowel syndrome) Irregular menstrual bleeding (~01/2019) Low TSH level Mild asthma Multinodular thyroid Otitis Overweight (BMI 25.0-29.9) Restless leg syndrome Strep sore throat Thyroid nodule Surgical History H/O laparoscopy History of delivery Hx of tonsillectomy [place] teeth extracted Family History Father Kidney failure Heart disease Colon polyps Bipolar 1 disorder Hypertension CVD (cardiovascular disease) Chronic mental illness Substance use disorder Mother Seizure Depression Anxiety Maternal Grandmother Hemorrhagic stroke History of multiple strokes Maternal Grandfather Cancer Family/Other Breast cancer Family/Other Colon cancer Social History Household Members: Family Housing: Apartment Alcohol intake: never Patient Tobacco Use Status: Never used Tobacco e-Cigarette/Vaping Use: Never Used Second Hand Smoke Exposure: No service: No Current occupational status: employed Sexual orientation: Straight/Heterosexual Gender identity: Female Cognitive needs: No Hearing needs: No Vision needs: Yes Female Reproductive History Menstrual Age of Menarche: 10 Assessment & Plan Assessment & Plan (1) Hyperthyroidism: Code(s): E05.90 - Thyrotoxicosis, unspecified without thyrotoxic crisis or storm Plan: I suspect this was due to assay interference from biotin. Labs repeated off biotin were WNL. I do not suspect hyperthyroidism at this time. Will repeat labs one more time to confirm. She will have labs repeated today, and I will call her with results. If all WNL she will then F/U with her PCP for further management. All of her questions were answered. She is in agreement with this plan of care. I spent 20 minutes in reviewing the record, seeing the patient and documenting in the medical record, including 5 minutes on the phone with the Patient. (2) Multinodular thyroid: Code(s): E04.2 - Nontoxic multinodular goiter Plan: Patient with a solitary subcentimeter nodule in the thyroid. No indication for FNA biopsy at this time. She will continue to follow with her PCP for further management and yearly surveillance US. We reviewed this in detail during her visit today. Orders: Orders Free T4 (Free Thyroxine) Today E04.2 - Nontoxic multinodular goiter Thyroid Stimulating Hormone Today E04.2 - Nontoxic multinodular goiter Telehealth Telehealth Location of provider rendering services: practice address Location of patient: address on file Patient Identification confirmed using: Name, : Yes Telehealth method: voice only Patient verbally consented to treatment: Yes Patient verbally consented to billing insurance company: Yes Patient informed of any privacy concerns related to visit: Yes Coding Level of Care Code Tele Est Pt Level 3 (52681) Diagnoses Hyperthyroidism E05.90 Multinodular thyroid E04.2
== END 2022-10-27 09:58 | disposition home or self-care (01) ==
LOC: HO.ENCR 09:22
PROVIDERS: PCP Internal Medicine; Visit Provider Internal Medicine
DX: E05.90 Thyrotoxicosis, unspecified without thyrotoxic crisis or storm (principal); E04.2 Nontoxic multinodular goiter
CPT/HCPCS: 99213

== ENCOUNTER → 2022-10-27 09:22 | Outpatient (BNVA) | payer OTHER, SELFPAY | PROVIDERS: PCP Internal Medicine; Visit Provider Internal Medicine ==

== ENCOUNTER 2022-11-05 11:25 | Emergency (ER) | payer OTHER, SELFPAY ==
--- NOTE | 2022-11-05 11:54 | MHC.CARE ---
Pt seen by [facility] in the community and section 12 to [facility]. [facility] to follow pt.
[2022-11-05 11:56] VITALS: BP 132/70; PULSE 110; RESP 20; TEMP 37.3; O2SAT 98; BMI 23.8
[2022-11-05 12:13] VITALS: BP 132/70; PULSE 110; RESP 20; TEMP 37.3; O2SAT 98
--- NOTE | 2022-11-05 13:02 | ED.PSYCH ---
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 Patient states that she is currently taking Effexor for depression. As per the triage note patient reports taking 2 of her Effexor 75 mg. She currently reports they SI but denies HI. Patient states she feels overwhelmed and of note this is her father's birthday and he has . Related Data Home Medications Medication Instructions Recorded Confirmed levonorgestrel 17.5 mcg/24 hrs intrauterine 08/27/22 10/27/22 (5yrs) 19.5mg intrauterine device pramipexole 0.5 mg tablet 0.5 mg PO BEDTIME 08/27/22 11/05/22 venlafaxine 75 mg capsule,extended 75 mg PO QAM 10/27/22 11/05/22 release 24 hr Previous Rx's Medication Instructions Recorded prochlorperazine maleate 5 mg 5 mg PO TID PRN nausea and 09/14/22 tablet (Compazine) vomiting 30 days #90 tabs Allergies Allergy/AdvReac Type Severity Reaction Status Date / Time Seasonal Allergies Allergy Intermediate Itching Verified 11/05/22 13:19 environmental allergies Allergy Mild itchy Verified 11/05/22 13:19 eyes, runny nose metronidazole [Flagyl] AdvReac Intermediate stomach Verified 11/05/22 13:19 upset paroxetine [Paxil] AdvReac Intermediate vomiting Verified 11/05/22 13:19 clarithromycin [From Biaxin] AdvReac Mild Headache Verified 11/05/22 13:19 lactose [Lactose] AdvReac Mild cramping, Verified 11/05/22 13:19 vomiting Review of Systems Review of Systems: Pertinent positives and negatives as stated in HPI PMFSH Past Medical History Source: nursing notes reviewed Medical History Abnormal Pap smear of vagina Anxiety delivery delivered Depression Fibromyalgia SILVIA (generalized anxiety disorder) GERD (gastroesophageal reflux disease) Hair loss Hematuria Hyperthyroidism IBS (irritable bowel syndrome) Irregular menstrual bleeding (~01/2019) Low TSH level Mild asthma Multinodular thyroid Otitis Overweight (BMI 25.0-29.9) Restless leg syndrome Strep sore throat Thyroid nodule Surgical History H/O laparoscopy History of delivery Hx of tonsillectomy [place] teeth extracted Family History Family History Father Kidney failure Heart disease Colon polyps Bipolar 1 disorder Hypertension CVD (cardiovascular disease) Chronic mental illness Substance use disorder Mother Seizure Depression Anxiety Maternal Grandmother Hemorrhagic stroke History of multiple strokes Maternal Grandfather Cancer Family/Other Breast cancer Family/Other Colon cancer Social History Social History Household Members: Family Housing: Apartment Alcohol intake: never Patient Tobacco Use Status: Never used Tobacco Smoked in Last 30 Days: No e-Cigarette/Vaping Use: Never Used Second Hand Smoke Exposure: No Use of substances other than those prescribed or required for medical reasons: No Advance Directives: No Patient : No service: No Current occupational status: employed Sexual orientation: Straight/Heterosexual Gender identity: Female Cognitive needs: No Hearing needs: No Vision needs: Yes Physical Exam Vital Signs: Vital Signs: Last Vital Signs Temp 99.2 F 11/05/22 12:13 Pulse 110 H 11/05/22 12:13 Resp 20 11/05/22 12:13 BP 132/70 11/05/22 12:13 Pulse Ox 98 11/05/22 12:13 O2 Del Method Room Air 11/05/22 12:13 BMI result Body Mass Index 23.8 VITAL SIGNS: Reviewed. GENERAL: Well developed, well nourished, in no acute distress. HEAD: Normocephalic/atraumatic EYES: PERRLA, EOMI EARS: Ext canals without abnormality LUNGS: Normal breath sounds. No adventitious sounds or accessory muscle use. SpO2<98> CARDIOVASCULAR: Regular rate and rhythm without noted murmurs ABDOMEN: Soft, non-tender, non-distended with bowel sounds. MUSCULOSKELETAL: No tenderness, deformities, or effusions noted on gross inspection. EXTREMITIES: No cyanosis, clubbing or edema. SKIN: Inspection of the skin reveals no rashes NEUROLOGIC: Alert and oriented x 4. Strength and sensation to light touch were grossly intact x 4, cranial nerves 2-12 are grossly intact PSYCH: Normal affect, logical up process. Medical Decision Making Medical Decision Making [facility] Narrative: 31-year-old female with history and clinical presentation consistent with feeling overwhelmed and suspect feelings of SI are associated with this, will medically clear and then have care team evaluate. I reviewed all investigations there is no evidence of infection or anemia as hematologic indices are negative for leukocytosis or left shift, no thrombocytopenia. Chemistry indices are negative for MIKHAIL or electrolyte/liver enzyme derangements. Urinalysis negative for UTI or hematuria and UDS is negative. Patient is otherwise medically cleared for further evaluation by the care team. Patient placed in physician observation because the patient needed more time for evaluation by the care team. At the time observation was started the patient's vital signs were stable, patient is alert and oriented, neuro: Nonfocal, CV RRR, lungs clear Differential Diagnosis Differential Diagnoses: The differential diagnosis associated with the presentation includes Please see the discussion above Admission/Observation Consideration of admission/observation: Escalation of care including admission/observation considered Please see the discussion above Consult Healthcare Provider Management of the patient was discussed with: Healthcare Prof Please see the discussion above Lab Data [facility] Lab Attestation statement: I reviewed the patient's lab results. Please see the discussion above 11/05/22 13:39 11/05/22 13:39 Labs: Lab Results 11/05/22 11/05/22 11/05/22 Range/Units 13:39 13:39 13:39 WBC 6.2 (4.8-10.8) X10*3/uL RBC 4.95 (4.20-5.50) X10*6/uL Hgb 14.2 (12.0-16.0) g/dl Hct 41.3 (37.0-47.0) % MCV 83.4 (80.0-98.0) fL MCH 28.7 (27.0-33.0) pg MCHC 34.4 (31.0-35.0) g/dl RDW 11.5 (11.0-16.0) % Plt Count 354 (160-400) X10*3/uL MPV 9.2 L (9.4-12.3) fL Immature Gran % (Auto) 0.2 (0.0-0.4) % Neut % (Auto) 62.9 (45-73) % Lymph % (Auto) 28.5 (20-40) % [place] % (Auto) 4.6 (2-11) % Eos % (Auto) 3.5 (0-4) % Baso % (Auto) 0.3 (0-2) % Lymph # (Auto) 1.8 (1.2-4.9) X10*3/uL [place] # (Auto) 0.3 (0.1-1.2) X10*3/uL Eos # (Auto) 0.2 (0.0-0.4) X10*3/uL Baso # (Auto) 0.0 (0.0-0.2) X10*3/uL Abs Immat Gran (auto) 0.01 (0.00-0.03) X10*3/uL Absolute Neuts (auto) 3.9 (2.0-8.3) x10*3/uL Absolute Nucleated RBC 0.000 (0.0-0.012) X10*3/uL Nucleated RBC % (auto) 0.0 (0.0-0.2) /100WBC Sodium 139 (135-145) mmol/L Potassium 3.3 D (3.3-5.1) mmol/L Chloride 108 (96-108) mmol/L Carbon Dioxide 21 L (22-29) mmol/L Anion Gap 13 (12-20) BUN 6 L (9-16) mg/dL Creatinine 0.83 (0.5-1.4) mg/dL Estim Creat Clear Calc 76.2 Estimated GFR > 60 Random Glucose 164 H (60-115) mg/dL Calcium 9.5 (8.4-10.2) mg/dL Total Bilirubin 0.8 (0.0-1.0) mg/dL AST 14 (5-31) U/L ALT 10 (0-31) U/L Alkaline Phosphatase 69 (39-117) U/L Total Protein 7.2 (6.5-8.0) g/dL Albumin 4.1 (3.5-5.0) g/dL Urine Color Urine Appearance Urine pH (5.0-9.0) Ur Specific [place] (1.005-1.025) Urine Protein (Neg-Trace) mg/dL Urine Glucose (UA) (Negative) mg/dL Urine Ketones (Negative) mg/dL Urine Blood (Negative) Urine Nitrite (Negative) Ur Leukocyte Esterase (Negative) Urine RBC (0-2) /HPF Urine WBC (0-5) /HPF Ur Squamous Epith Cells (0-2) /HPF Urine Bacteria (None Seen) Hyaline Casts (0-2) /LPF Urine Test (NEGATIVE) Urine Opiates Screen (Not Detect) Urine Fentanyl Screen (Not Detect) Ur Barbiturates Screen (Not Detect) Ur Phencyclidine Scrn (Not Detect) Ur Amphetamines Screen (Not Detect) U Benzodiazepines Scrn (Not Detect) Urine Cocaine Screen (Not Detect) U Marijuana (THC) Screen (Not Detect) COVID-19 (BEN) Negative (Negative) COVID-19 Clin Com See Note 11/05/22 11/05/22 11/05/22 Range/Units 14:27 14:27 14:27 WBC (4.8-10.8) X10*3/uL RBC (4.20-5.50) X10*6/uL Hgb (12.0-16.0) g/dl Hct (37.0-47.0) % MCV (80.0-98.0) fL MCH (27.0-33.0) pg MCHC (31.0-35.0) g/dl RDW (11.0-16.0) % Plt Count (160-400) X10*3/uL MPV (9.4-12.3) fL Immature Gran % (Auto) (0.0-0.4) % Neut % (Auto) (45-73) % Lymph % (Auto) (20-40) % [place] % (Auto) (2-11) % Eos % (Auto) (0-4) % Baso % (Auto) (0-2) % Lymph # (Auto) (1.2-4.9) X10*3/uL [place] # (Auto) (0.1-1.2) X10*3/uL Eos # (Auto) (0.0-0.4) X10*3/uL Baso # (Auto) (0.0-0.2) X10*3/uL Abs Immat Gran (auto) (0.00-0.03) X10*3/uL Absolute Neuts (auto) (2.0-8.3) x10*3/uL Absolute Nucleated RBC (0.0-0.012) X10*3/uL Nucleated RBC % (auto) (0.0-0.2) /100WBC Sodium (135-145) mmol/L Potassium (3.3-5.1) mmol/L Chloride (96-108) mmol/L Carbon Dioxide (22-29) mmol/L Anion Gap (12-20) BUN (9-16) mg/dL Creatinine (0.5-1.4) mg/dL Estim Creat Clear Calc Estimated GFR Random Glucose (60-115) mg/dL Calcium (8.4-10.2) mg/dL Total Bilirubin (0.0-1.0) mg/dL AST (5-31) U/L ALT (0-31) U/L Alkaline Phosphatase (39-117) U/L Total Protein (6.5-8.0) g/dL Albumin (3.5-5.0) g/dL Urine Color Yellow Urine Appearance Clear Urine pH 6.0 (5.0-9.0) Ur Specific [place] <= 1.005 (1.005-1.025) Urine Protein Negative (Neg-Trace) mg/dL Urine Glucose (UA) Negative (Negative) mg/dL Urine Ketones Negative (Negative) mg/dL Urine Blood Negative (Negative) Urine Nitrite Negative (Negative) Ur Leukocyte Esterase Trace H (Negative) Urine RBC 0-2 (0-2) /HPF Urine WBC 0-5 (0-5) /HPF Ur Squamous Epith Cells 3-5 (0-2) /HPF Urine Bacteria None Seen (None Seen) Hyaline Casts 0-2 (0-2) /LPF Urine Test NEGATIVE (NEGATIVE) Urine Opiates Screen Not Detected (Not Detect) Urine Fentanyl Screen Not Detected (Not Detect) Ur Barbiturates Screen Not Detected (Not Detect) Ur Phencyclidine Scrn Not Detected (Not Detect) Ur Amphetamines Screen Not Detected (Not Detect) U Benzodiazepines Scrn Not Detected (Not Detect) Urine Cocaine Screen Not Detected (Not Detect) U Marijuana (THC) Screen Not Detected (Not Detect) COVID-19 (BEN) (Negative) COVID-19 Clin Com Discharge Plan Discharge Clinical Impression: Depression, Suicidal ideation Patient Disposition: Still a Patient Prescriptions: No Action prochlorperazine maleate [Compazine] 5 mg tablet 5 mg PO TID PRN (Reason: nausea and vomiting) 30 Days Qty: 90 1RF Rx Instructions: Use of Zofran does not work venlafaxine 75 mg capsule,extended release 24hr 75 mg PO QAM pramipexole 0.5 mg tablet 0.5 mg PO BEDTIME levonorgestrel 17.5 mcg/24 hrs (5 yrs) 19.5 mg intrauterine device intrauterine Interventions: Kosse-Suicide Risk Severity Scale Last Done: 11/05/22 13:06
[2022-11-05 13:44] LABS: MANUAL DIFF FLAG NO
[2022-11-05 13:49] LABS: Basophils Percent Auto 0.3 % (0-2); Eosinophils Absolute Auto 0.2 X10*3/uL (0.0-0.4); Eosinophils Percent Auto 3.5 % (0-4); Hematocrit 41.3 % (37.0-47.0); Hemoglobin 14.2 g/dl (12.0-16.0); Imm Gran Abs Auto 0.01 X10*3/uL (0.00-0.03); Imm Gran Pct Auto 0.2 % (0.0-0.4); Lymphocytes Absolute Auto 1.8 X10*3/uL (1.2-4.9); Lymphocytes Percent Auto 28.5 % (20-40); Mean Corpuscular HGB Conc 34.4 g/dl (31.0-35.0); Mean Corpuscular Hemoglobin 28.7 pg (27.0-33.0); Mean Corpuscular Volume 83.4 fL (80.0-98.0); Mean Platelet Volume 9.2 fL (9.4-12.3); Monocytes Absolute Auto 0.3 X10*3/uL (0.1-1.2); Monocytes Percent Auto 4.6 % (2-11); Neutrophils Absolute Auto 3.9 x10*3/uL (2.0-8.3); Neutrophils Percent Auto 62.9 % (45-73); Platelet Count 354 X10*3/uL (160-400); Red Blood Count 4.95 X10*6/uL (4.20-5.50); Red Cell Distribution Width 11.5 % (11.0-16.0); White Blood Count 6.2 X10*3/uL (4.8-10.8)
[2022-11-05 14:00] VITALS: BP 122/74; PULSE 102; O2SAT 99
[2022-11-05 14:11] LABS: Alanine Aminotransferase 10 U/L (0-31); Albumin Level 4.1 g/dL (3.5-5.0); Alkaline Phosphatase 69 U/L (39-117); Anion Gap 13 (12-20); Aspartate Amino Transferase 14 U/L (5-31); Bilirubin Total 0.8 mg/dL (0.0-1.0); Blood Urea Nitrogen 6 mg/dL (9-16); Calcium 9.5 mg/dL (8.4-10.2); Carbon Dioxide 21 mmol/L (22-29); Chloride 108 mmol/L (96-108); Creatinine Clr Calc Pharmacy 76.2; Estimated Glomerular Filt Rate > 60; Glucose Random 164 mg/dL (60-115); Potassium 3.3 mmol/L (3.3-5.1); Sodium 139 mmol/L (135-145); Total Protein 7.2 g/dL (6.5-8.0)
[2022-11-05 14:14] LABS: COVID-19 Test Negative (Negative); IDNOW Serial# 08D9AD1C
[2022-11-05 14:42] LABS: Appearance Urine Clear; Color Urine Yellow; Glucose Urine UA Negative (Negative); Leukocyte Esterase Urine Trace (Negative); Nitrite Urine Negative (Negative); Specific Gravity - Urine <= 1.005 (1.005-1.025); UMIC TRIGGER UACC YES; Urine Blood Negative (Negative); Urine Ketones Negative (Negative); Urine Protein Negative (Neg-Trace)
[2022-11-05 14:45] LABS: Bacteria Urine None Seen (None Seen); Hyaline Casts Urine 0-2 /LPF (0-2); RBC Urine 0-2 /HPF (0-2); UPreg QC Valid YES; Urine Pregnancy NEGATIVE (NEGATIVE); WBC Urine 0-5 /HPF (0-5)
[2022-11-05 14:50] LABS: Amphetamine Screen Urine Not Detected (Not Detect); Barbiturates, Urine Not Detected (Not Detect); Benzodiazepines Screen Urine Not Detected (Not Detect); Cannabinoid Screen Urine Not Detected (Not Detect); Cocaine Screen Urine Not Detected (Not Detect); Fentanyl, urine Not Detected (Not Detect); Opiate Screen Urine Not Detected (Not Detect); Phencyclidine Screen Urine Not Detected (Not Detect)
--- NOTE | 2022-11-05 15:58 | MHC.CARE ---
patient accepted to [facility], pt mother to bring in her meds/ clothes. CARE to provide Lyft to [place]
[2022-11-05 16:16] VITALS: BP 118/70; PULSE 83; RESP 18; TEMP 37.3; O2SAT 100
--- NOTE | 2022-11-05 16:20 | PC.NURSE ---
Spoke with care team, plan to wait for patient's mother to drop off supplies and medications to patient and then will get a lift to respite.
--- NOTE | 2022-11-05 16:58 | PC.NURSE ---
Patient sitting on bed talking with her mother at this time. Awaiting lift to bring her to respite.
== END 2022-11-05 17:03 | disposition other institution (70) ==
PROVIDERS: Emergency Provider Student in an Organized Health Care Education/Training Program; PCP Internal Medicine
DX: F33.1 Major depressive disorder, recurrent, moderate (principal); R45.851 Suicidal ideations; Z20.822 Contact with and (suspected) exposure to COVID-19; Z20.828 Contact with and (suspected) exposure to other viral communicable diseases; Z79.899 Other long term (current) drug therapy
CPT/HCPCS: 36415; 80053; 80307; 81001; 81025; 85025; 87635; 99283; 99284

== ENCOUNTER → 2022-12-09 08:26 | Outpatient (REF) | payer OTHER, SELFPAY ==
[2022-12-09 08:42] LABS: MANUAL DIFF FLAG NO
--- NOTE | 2022-12-09 08:49 | ECG_ITS ---
Test Reason : z79.899 Blood Pressure : / mmHG Vent. Rate : 065 BPM Atrial Rate : 065 BPM P-R Int : 158 ms QRS Dur : 098 ms QT Int : 392 ms P-R-T Axes : 041 063 035 degrees QTc Int : 407 ms Normal sinus rhythm Normal ECG When compared with ECG of 04-FEB-2020 03:40, No significant change was found Referred By: NOEL ANN Electronically Signed By:ISAURA AGUILAR
[2022-12-09 09:01] LABS: Basophils Percent Auto 0.5 % (0-2); Eosinophils Absolute Auto 0.5 X10*3/uL (0.0-0.4); Eosinophils Percent Auto 8.5 % (0-4); Hematocrit 40.5 % (37.0-47.0); Hemoglobin 13.5 g/dl (12.0-16.0); Imm Gran Abs Auto 0.01 X10*3/uL (0.00-0.03); Imm Gran Pct Auto 0.2 % (0.0-0.4); Lymphocytes Absolute Auto 2.4 X10*3/uL (1.2-4.9); Lymphocytes Percent Auto 43.1 % (20-40); Mean Corpuscular HGB Conc 33.3 g/dl (31.0-35.0); Mean Corpuscular Hemoglobin 28.1 pg (27.0-33.0); Mean Corpuscular Volume 84.4 fL (80.0-98.0); Monocytes Absolute Auto 0.4 X10*3/uL (0.1-1.2); Monocytes Percent Auto 7.9 % (2-11); Neutrophils Absolute Auto 2.2 x10*3/uL (2.0-8.3); Neutrophils Percent Auto 39.8 % (45-73); Platelet Count 301 X10*3/uL (160-400); Red Cell Distribution Width 12.1 % (11.0-16.0); White Blood Count 5.6 X10*3/uL (4.8-10.8)
[2022-12-09 09:10] LABS: Estimated Average Glucose 88 mg/dL; Hemoglobin A1c % 4.7 % (<6.0)
[2022-12-09 09:23] LABS: Alanine Aminotransferase 42 U/L (0-31); Albumin Level 3.9 g/dL (3.5-5.0); Alkaline Phosphatase 75 U/L (39-117); Anion Gap 9 (12-20); Aspartate Amino Transferase 38 U/L (5-31); Bilirubin Total 0.4 mg/dL (0.0-1.0); Blood Urea Nitrogen 5 mg/dL (9-16); Calcium 9.1 mg/dL (8.4-10.2); Carbon Dioxide 26 mmol/L (22-29); Chloride 111 mmol/L (96-108); Cholesterol 200 mg/dL (<200); Estimated Glomerular Filt Rate > 60; Glucose Fasting 86 mg/dL (60-99); HDL Cholesterol 57 mg/dL (>40); LDL Cholesterol Calculated 129 mg/dL (<100); Sodium 142 mmol/L (135-145); Total Protein 6.8 g/dL (6.5-8.0); Triglycerides 71 mg/dL (<150)
== END ==
LOC: HO.CARD 08:26
PROVIDERS: PCP Internal Medicine; Visit Provider Registered Nurse
DX: Z79.899 Other long term (current) drug therapy (principal)
CPT/HCPCS: 36415; 80053; 80061; 83036; 85025; 93005

== ENCOUNTER 2023-02-23 14:17 | Outpatient (AMB) | payer OTHER, SELFPAY ==
--- NOTE | 2023-02-23 14:46 | A.OFFPC_ITS ---
Vital Signs 02/23/23 14:47 Height 5 ft 2 in Weight 151 lb BMI 27.6 BP 110/72 Blood Pressure Location Lt brachial Position Sitting Intake Visit Reasons: Annual Exam Administrative Specialist Required: No Accompanied by: Self / Same As Patient Allergies Seasonal Allergies Allergy (Intermediate, Verified 02/23/23 15:01) Itching environmental allergies Allergy (Mild, Verified 02/23/23 15:01) itchy eyes, runny nose metronidazole [Flagyl] Adverse Reaction (Intermediate, Verified 02/23/23 15:01) stomach upset paroxetine [Paxil] Adverse Reaction (Intermediate, Verified 02/23/23 15:01) vomiting clarithromycin [From Biaxin] Adverse Reaction (Mild, Verified 02/23/23 15:01) Headache lactose [Lactose] Adverse Reaction (Mild, Verified 02/23/23 15:01) cramping, vomiting Medication List - Last Reconciled 02/23/23 by Jammie Boyd MD clonidine HCl mg PO levonorgestrel intrauterine pramipexole 0.5 mg PO BEDTIME prochlorperazine maleate (Compazine) 5 mg PO TID PRN 30 days trazodone 50 - 150 mg PO BEDTIME PRN venlafaxine ER 37.5 mg PO DAILY venlafaxine ER 75 mg PO QAM Tobacco use date assessed: 02/23/23 Dental Screening Dental Screen Date: 02/23/23 Did you have a dental visit in the last 12 months?: No Did you have a dental problem in the last 6 months where you did not have access to dental care?: No Was dental information given to patient?: Patient has dentist HPI HPI Comments History of Present Illness Details This is a 32 year female that comes for her physical exam. Last Pap smear was 2020. Complains of chest pain involving the left breast at 10:00 o'clock that started about a month ago. No nipple discharge. No breast mass. No nipple retraction. The pain happens at rest or on exertion. Not associated to any foods. [facility] Medical History Abnormal Pap smear of vagina Multinodular thyroid Hematuria Thyroid nodule Mild asthma Otitis SILVIA (generalized anxiety disorder) Hyperthyroidism Low TSH level Hair loss Strep sore throat Overweight (BMI 25.0-29.9) Fibromyalgia Restless leg syndrome GERD (gastroesophageal reflux disease) IBS (irritable bowel syndrome) Depression Anxiety Irregular menstrual bleeding (~01/2019) delivery delivered Surgical History History of delivery H/O laparoscopy [place] teeth extracted Hx of tonsillectomy Family History Father Kidney failure Heart disease Colon polyps Bipolar 1 disorder Hypertension CVD (cardiovascular disease) Chronic mental illness Substance use disorder Mother Seizure Depression Anxiety Maternal Grandmother Hemorrhagic stroke History of multiple strokes Maternal Grandfather Cancer Family/Other Breast cancer Family/Other Colon cancer Household Members: Family Housing: Apartment Alcohol intake: never Patient Tobacco Use Status: Never used Tobacco e-Cigarette/Vaping Use: Never Used Second Hand Smoke Exposure: No service: No Current occupational status: employed Sexual orientation: Straight/Heterosexual Gender identity: Female Cognitive needs: No Hearing needs: No Vision needs: Yes Female Reproductive History Menstrual Age of Menarche: 10 Questionnaire PHQ-9 Over the last 2 weeks, how often have you been bothered by any of the following problems? 1. Little interest or pleasure in doing things: several days 2. Feeling down, depressed, or hopeless: more than half the days 3. Trouble falling or staying asleep, or sleeping too much: several days 4. Feeling tired or having little energy: several days 5. Poor appetite or overeating: not at all 6. Feeling bad about yourself - or that you are a failure or have let yourself or your family down: more than half the days 7. Trouble concentrating on things, such as reading the newspaper or watching television: not at all 8. Moving or speaking so slowly that other people could have noticed. Or the opposite - being so fidgety or restless that you have been moving around a lot more than usual: not at all 9. Thoughts that you would be better off or of hurting yourself in some way: not at all Total score: 7 Depression Screening Interpretation: Positive Depression Screening Follow-up: Existing condition and In treatment Depression Screening Done: Yes 81028 - PHQ-9 Billing: Yes Source: Developed by Drs. Braeden Maldonado, Carmencita Dukes, Sergei Escobar and colleagues, with an educational matias from [employer]. Thrive Questionnaire Date Thrive assessed: 02/23/23 I am a: Patient What is your living situation today?: I have a steady place to live Within the past 12 months, did the food you bought not last and you didn't have the money to get more?: Never true Within the past 12 months, did you worry whether your food would run out before you got money to buy more?: Never true Do you have trouble paying for medicines?: No Do you have trouble getting transportation to medical appointments?: No Do you have trouble paying your heating and electricity bill?: No Do you have trouble taking care of your child, family member or friend?: No Do you have trouble with day-to-day activities such as bathing, preparing meals, shopping, managing finances, etc.?: No Are you currently unemployed and looking for a job?: No Are you interested in more education?: No Currently or been in a relationship where the following occur: no concerns reported AUDIT C Alcohol Use Questionnaire (AUDIT-C) 1. How often do you have a drink containing alcohol?: Never Total Score: 0 SILVIA-7 AMB Questionnaire SILVIA-7 Date SILVIA - 7 assessed: 02/23/23 Feeling nervous, anxious, or on edge: 2 = More than half the days Not being able to stop or control worryin = Several days Worrying too much about different things: 3 = Nearly every day Trouble relaxin = Several days Being so restless that it is hard to sit still: 0 = Not at all Becoming easily annoyed or irritable: 2 = More than half the days Feeling afraid as if something awful might happen: 0 = Not at all Total SILVIA-7 score (0-4 normal; 5-9 mild; 10-14 moderate; 15-21 severe): 9 Source: Developed by Drs. Braeden Maldonado, Sergei Sanchez and colleagues, with an educational matias from [employer]. SILVIA-7 Assessment Billing SILVIA-7 Assessment Tool: SILVIA-7 Assessment 88301 Review of Systems Const All systems reviewed & are unremarkable except as noted in HPI and below Eyes Reports no additional complaints, Denies change in vision and Denies other visual disturbances Card Denies chest pain at rest, Denies chest pain with activity, Denies edema, Denies irregular heart rhythm, Denies claudication, Denies dyspnea, Denies dyspnea on exertion, Denies orthopnea, Denies paroxysmal nocturnal dyspnea and Denies slow heart rate Resp Denies cough, Denies dyspnea and Denies dyspnea on exertion GI Denies abdominal pain, Denies change in bowel habits, Denies excessive flatus, Denies nausea and Denies vomiting Denies urinary incontinence, Denies urinary hesitancy and Denies urinary urgency Musc Denies atrophy, Denies deformity and Denies limited range of motion Skin/Breast Denies bleeding lesions, Denies changing lesions and Denies rash Physical exam (Primary Care) Vital Signs: Last Vital Signs BP 110/72 02/23/23 14:47 BMI result Body Mass Index 27.6 Tobacco/Smoking Status: Tobacco use Status Tobacco use date assessed 02/23/23 02/23/23 14:52 Patient Tobacco Use Status Never used Tobacco 02/23/23 14:52 e-Cigarette/Vaping Use Never Used 02/23/23 14:52 PHQ-9: PHQ-9 Score PHQ-9: Total score 7 02/23/23 15:07 Depression Screening Interpretation: Positive Depression Screening Follow-up: Existing condition and In treatment Thrive Assessment: Date of Thrive Assessment Date Thrive assessed 02/23/23 02/23/23 14:52 Currently or been in a relationship where the following occur: no concerns reported Const Orientation/consciousness: patient oriented x3 [facility] Head: Yes normal to inspection, Yes normocephalic and Yes atraumatic Ears: external ears normal Eyes General: appearance normal, both eyes and all related structures Eyelids: Yes eyelids normal Conjunctivae: conjunctivae normal Neck Neck: Yes normal visual inspection and Yes supple Chest Chest palpation & inspection: normal inspection of the chest Breast/axilla inspection: normal inspection of the breasts Breast/axilla palpation: abnormal palpation of the breast (Left breast pain at 10:00 o'clock) Resp Effort & Inspection: normal respiratory effort Auscultation: clear to auscultation bilaterally Cardio Jugular venous distension: no JVD Rate: regular rate Rhythm: regular rhythm Heart sounds: S1 normal heart sound present and S2 normal heart sound present GI Inspection: Yes normal to inspection Palpation (GI): Soft to palpation and nontender Auscultation: normal bowel sounds Skin General skin exam: no rashes or lesions noted Neuro General: patient oriented x3 and no focal motor deficits Extrem General: Yes full ROM Psych Appearance: grossly normal Office Procedures Flu Questionnaire Does the patient have a severe egg allergy?: No Does the patient have severe life threatening allergies?: No Does the patient have a fever or illness today?: No Has the patient ever had Guillain-[place] Syndrome?: No Has the patient ever had any past reaction to a flu shot?: No Immunizations flu vacc [id number] 6mos up(PF) 60 mcg(15 mcgx4)/0.5 mL IM syringe Performing Provider: Jammie Boyd MD Performing Location: [facility] Administered by: NOE Swnan on 02/23/23 15:17 Dose Route Admin Location Dispensed Lot Number Expiration Date NDC Adult Care Provider 0.5 mL IM Left Deltoid 0.5 mL [id number] 09/27/23 [id number] [employer] VIS Given Date VIS Provided VIS Publication Date 02/23/23 Single Vaccine 20 Eligibility Eligibility Date Funding Source Not [facility] Eligible 02/23/23 Private Assessment and Plan Assessment & Plan (1) Physical exam: Code(s): Z00.00 - Encounter for general adult medical examination without abnormal findings Plan: Repeat in a year. Orders: Orders Liver Panel Today R74.01 - Elevation of levels of liver transaminase levels US breast LT complete Today N64.4 - Mastodynia ECG 12 lead EKG Today R07.9 - Chest pain, unspecified Influenza [id number] Immunization Today Z23 - Encounter for immunization MM diagnostic mammo BI Today N64.4 - Mastodynia Coding Level of Care Code Est Pt Prev Care 18-39y(94286) Diagnoses Physical exam Z00.00 Additional Codes SILVIA-7 Assessment Billing - SILVIA-7 Assessment Tool: SILVIA-7 Assessment 80475 ([id number]) Time Spent (min) 32
[2023-02-23 14:47] VITALS: BP 110/72; BMI 27.6
== END 2023-02-23 15:17 | disposition home or self-care (01) ==
PROVIDERS: Visit Provider Internal Medicine
DX: Z00.00 Encounter for general adult medical examination without abnormal findings (principal); Z23 Encounter for immunization; Z90.89 Acquired absence of other organs
CPT/HCPCS: 90471; 90686; 99395

== ENCOUNTER 2023-02-23 15:21 | Outpatient (REF) | payer OTHER, SELFPAY ==
--- NOTE | 2023-02-23 15:26 | ECG_ITS ---
Test Reason : cp Blood Pressure : / mmHG Vent. Rate : 069 BPM Atrial Rate : 069 BPM P-R Int : 168 ms QRS Dur : 098 ms QT Int : 388 ms P-R-T Axes : 064 069 042 degrees QTc Int : 415 ms Normal sinus rhythm RSR' or QR pattern in V1 suggests right ventricular conduction delay Otherwise normal ECG When compared with ECG of 09-DEC-2022 08:50, No significant change was found Referred By: Jammie Body Electronically Signed By:COLLINS PEREIRA MD
[2023-02-23 17:29] LABS: Alanine Aminotransferase 7 U/L (0-31); Albumin Level 4.3 g/dL (3.5-5.0); Alkaline Phosphatase 52 U/L (39-117); Aspartate Amino Transferase 13 U/L (5-31); Bilirubin Direct 0.2 mg/dL (0.0-0.5); Bilirubin Total 0.5 mg/dL (0.0-1.0); Total Protein 7.2 g/dL (6.5-8.0)
[2023-02-23 17:47] LABS: Free T4 (Free Thyroxine) 0.94 ng/dL (0.71-1.85); Thyroid Stimulating Hormone 0.81 uIU/mL (0.32-4.0)
== END 2023-02-23 15:22 | disposition home or self-care (01) ==
LOC: HO.LAB 15:21
PROVIDERS: Internal Medicine; PCP Internal Medicine; Visit Provider Internal Medicine
DX: E05.90 Thyrotoxicosis, unspecified without thyrotoxic crisis or storm (principal); E04.2 Nontoxic multinodular goiter; R74.01 Elevation of levels of liver transaminase levels; R07.9 Chest pain, unspecified
CPT/HCPCS: 36415; 80076; 84439; 84443; 93005

== ENCOUNTER 2023-03-18 14:52 | Outpatient (REF) | payer OTHER, SELFPAY ==
--- NOTE | ~2023-03-18 | MM_ITS ---
EXAMINATION: MM DIAGNOSTIC DIGITAL BREAST TOMOSYNTHESIS, BILATERAL US BREAST LIMITED, LEFT MAMMOGRAPHY: CLINICAL INFORMATION: 32-year-old female, breast pain 10:00 axis left breast. Baseline exam. COMPARISON: Mammography: None. Baseline exam. TECHNIQUE: Digital breast tomosynthesis is performed in both the craniocaudal and mediolateral oblique views along with computer-aided detection (CAD). Synthesized 2D images are generated from the tomosynthesis. FINDINGS: The breasts are heterogeneously dense, which may obscure small masses (ACR BI-RADS breast composition Category c). There are no suspicious masses, suspicious grouped calcifications, or areas of architectural distortion in either breast. The parenchymal pattern is stable from prior exams. No mammographic abnormality noted in the medial left breast in the region of left breast pain. No skin or axillary abnormalities. ULTRASOUND: CLINICAL INFORMATION: 32-year-old female with medial breast pain. Baseline exam. COMPARISON: None TECHNIQUE: Targeted sonographic evaluation was performed using a high frequency linear transducer. Left breast was scanned from the 7:00 to the 2:00 position, and the region of breast pain as pointed out by the patient. Selected archived documentation. FINDINGS: LEFT BREAST: There is a mixture of fatty and fibroglandular tissue. No suspicious mass is seen. There is no pathologic acoustic shadowing. There are no cystic findings. There is no ultrasound correlate to the region of left breast pain medially. MM/MM tomosynthesis diagnostic BI IMPRESSION: There are no findings suspicious for malignancy in either breast. No sonographic or mammographic correlate to the region of breast pain medial left breast. Recommend clinical management. Otherwise, recommend resuming routine annual screening mammography at age 38. OVERALL ASSESSMENT: Mammography: BI-RADS 1 - Negative Ultrasound: BI-RADS 1 - Negative RECOMMENDATION: 1. Patient should be managed based on the clinical impression. 2. Otherwise, routine annual screening mammography at age 38.
== END 2023-03-18 14:53 | disposition home or self-care (01) ==
LOC: HO.MAMMO 14:52
PROVIDERS: PCP Internal Medicine; Visit Provider Internal Medicine
DX: N64.4 Mastodynia (principal)
CPT/HCPCS: 76642; 77062; 77066

== ENCOUNTER → 2023-03-18 15:30 | Outpatient (BNV) | payer OTHER, SELFPAY | PROVIDERS: PCP Internal Medicine; Visit Provider Radiology Diagnostic Radiology | DX: N64.4 Mastodynia (principal) | CPT/HCPCS: 76642; 77062; 77066 ==

== ENCOUNTER 2023-04-01 13:45 | Outpatient (REF) | payer OTHER, SELFPAY ==
[2023-04-06 10:19] LABS: HPV mRNA E6/E7 rflx Not Detected (Not Detected)
== END 2023-04-01 13:46 | disposition home or self-care (01) ==
LOC: HO.LNP 13:45
PROVIDERS: PCP Internal Medicine; Visit Provider Advanced Practice Midwife
DX: Z01.419 Encounter for gynecological examination (general) (routine) without abnormal findings (principal); Z11.3 Encounter for screening for infections with a predominantly sexual mode of transmission; Z11.51 Encounter for screening for human papillomavirus (HPV); Z20.2 Contact with and (suspected) exposure to infections with a predominantly sexual mode of transmission
CPT/HCPCS: 0353U; 87624; 88142; 99395

== ENCOUNTER 2023-04-01 13:45 | Outpatient (AMB) | payer OTHER, SELFPAY ==
[2023-04-01 13:55] VITALS: BP 120/82; BMI 26.7
--- NOTE | 2023-04-01 13:55 | MHC.OFFVIS ---
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: Station Installer Present ([place]) Allergies Seasonal Allergies Allergy (Intermediate, Verified 04/01/23 13:55) Itching environmental allergies Allergy (Mild, Verified 04/01/23 13:55) itchy eyes, runny nose metronidazole [Flagyl] Adverse Reaction (Intermediate, Verified 04/01/23 13:55) stomach upset paroxetine [Paxil] Adverse Reaction (Intermediate, Verified 04/01/23 13:55) vomiting clarithromycin [From Biaxin] Adverse Reaction (Mild, Verified 04/01/23 13:55) Headache lactose [Lactose] Adverse Reaction (Mild, Verified 04/01/23 13:55) cramping, vomiting HPI HPI Comments History of Present Illness Details She is a premenopausal woman presenting for annual examination. Doing well with no concerns. She tries to eat healthy and stays active with exercise. Regular monthly menses. Currently is sexually active. She denies vaginal itching and irritation. STI screening offered; she accepts. Denies family history of MGGM w/breast, colon cancer (Distant relative). No ovarian cancer. Last pap smear 2021, negative. Prior pap HPV+. [facility] Medical History Abnormal Pap smear of vagina Multinodular thyroid Hematuria Thyroid nodule Mild asthma Otitis SILVIA (generalized anxiety disorder) Hyperthyroidism Low TSH level Hair loss Strep sore throat Overweight (BMI 25.0-29.9) Fibromyalgia Restless leg syndrome GERD (gastroesophageal reflux disease) IBS (irritable bowel syndrome) Depression Anxiety Irregular menstrual bleeding (~01/2019) delivery delivered Surgical History History of delivery H/O laparoscopy [place] teeth extracted Hx of tonsillectomy Family History Father Kidney failure Heart disease Colon polyps Bipolar 1 disorder Hypertension CVD (cardiovascular disease) Chronic mental illness Substance use disorder Mother Seizure Depression Anxiety Maternal Grandmother Hemorrhagic stroke History of multiple strokes Maternal Grandfather Cancer Family/Other Breast cancer Family/Other Colon cancer Social History Household Members: Family Housing: Apartment Alcohol intake: never Patient Tobacco Use Status: Never used Tobacco e-Cigarette/Vaping Use: Never Used Second Hand Smoke Exposure: No service: No Current occupational status: employed Sexual orientation: Straight/Heterosexual Gender identity: Female Cognitive needs: No Hearing needs: No Vision needs: Yes Female Reproductive History Menstrual Age of Menarche: 10 control method: progestin IUCD (Kyleena 05/2020) Total pregnancies: 2 Full term: 1 Number of Living Children: 1 Ab induced: 1 Date of last pap smear: 03/18/22 (neg pap and hpv ) History of abnormal pap smear: Yes (09/10 ascus +hpv 04/13 ascus 12/18 +hpv) Review of Systems Const All systems reviewed & are unremarkable except as noted in HPI and below Reports as per HPI Eyes Reports no additional complaints ENT Reports no additional complaints Card Reports no additional complaints Resp Reports no additional complaints GI Reports as per HPI and Reports no additional complaints Reports as per HPI Musc Reports no additional complaints Skin/Breast Reports as per HPI Neuro Reports no additional complaints Psych Reports no additional complaints Endo Reports no additional complaints Juan/Lymph Reports no additional complaints Aller/Immun Reports no additional complaints Physical Exam Vital Signs: Last Vital Signs BP 120/82 04/01/23 13:55 BMI result Body Mass Index 26.7 Const General: cooperative, healthy appearing, no acute distress, well developed and alert Orientation/consciousness: patient oriented x3 HEENT Head: Yes normal to inspection Eyes General: appearance normal, both eyes and all related structures Neck Neck: Yes normal visual inspection Thyroid: Thyroid normal Chest Chest palpation & inspection: normal inspection of the chest and other (no puckering, dimpling, peau de orange, retraction, discharge, masses) Breast/axilla inspection: normal inspection of the breasts Breast/axilla palpation: normal palpation of the breasts Resp Effort & Inspection: normal respiratory effort GI Inspection: Yes normal to inspection Palpation (GI): Soft to palpation Rectal Exam - Female: deferred General: Yes bladder normal to palpation External Female Exam: normal external appearance and normal appearance of the urethra Speculum Exam - Vagina: normal appearance of the vagina, normal palpation and normal vaginal discharge Speculum Exam - Cervix: normal appearance of the cervix, normal palpation and Other cervical findings present (Normal IUD string length) Bimanual exam- vagina & uterus: normal bimanual exam, normal palpation, uterine size normal, bladder normal to palpation, normal palpation and non-tender Bimanual Exam- Adnexa, other: no masses Skin General skin exam: no rashes or lesions noted Rashes: no rashes Neuro General: patient oriented x3 Cognition (Neuro): normal cognition Extrem General: Yes normal to inspection Psych Attitude: cooperative Thought process: Normal thought process present Assessment & Plan Assessment & Plan (1) Encounter for well woman exam with routine gynecological exam: Code(s): Z01.419 - Encounter for gynecological examination (general) (routine) without abnormal findings Plan Discussed: Current recommendations for pap smears per ASCCP guidelines. Breast awareness and periodic breast exams. Maintain a healthy lifestyle including a well balanced diet and routine exercise. Use condoms for STI and prevention. Offered STD blood work patient declines today. Informed Don[place]on is good for 2 more years until May 2025. All of her questions and concerns were addressed to the best of my ability. RTO in one year for annual bulb planter examination. This note is constructed using voice recognition software. While every effort has been made to ensure accuracy, gear generator set up operator errors may have been included. Coding Level of Care Code Est Pt Prev Care 18-39y(27428) Diagnoses Encounter for well woman exam with routine gynecological exam Z01.419
== END 2023-04-01 14:21 | disposition home or self-care (01) ==
LOC: HO.HWS 13:45
PROVIDERS: PCP Internal Medicine; Visit Provider Advanced Practice Midwife
DX: Z01.419 Encounter for gynecological examination (general) (routine) without abnormal findings (principal)
CPT/HCPCS: 99395

== ENCOUNTER 2023-04-23 14:20 | Outpatient (REF) | payer OTHER, SELFPAY ==
[2023-04-23 15:44] LABS: Influenza A PCR NEGATIVE (Negative); Influenza B PCR NEGATIVE (Negative); Resp Syncy Virus RNA Qual PCR NEGATIVE (Negative); SARS COV2 PCR INHOUSE NEGATIVE (Negative)
== END 2023-04-23 14:21 | disposition home or self-care (01) ==
LOC: HO.LAB 14:20
PROVIDERS: PCP Internal Medicine; Visit Provider Internal Medicine
DX: Z11.52 Encounter for screening for COVID-19 (principal); R09.89 Other specified symptoms and signs involving the circulatory and respiratory systems
CPT/HCPCS: 0241U

== ENCOUNTER 2023-10-20 08:30 | Outpatient (REF) | payer OTHER, SELFPAY ==
[2023-10-20 09:55] LABS: Alanine Aminotransferase 10 U/L (0-31); Albumin Level 4.3 g/dL (3.5-5.0); Alkaline Phosphatase 58 U/L (39-117); Anion Gap 10 (12-20); Aspartate Amino Transferase 13 U/L (5-31); Bilirubin Total 0.9 mg/dL (0.0-1.0); Blood Urea Nitrogen 10 mg/dL (9-16); Calcium 9.5 mg/dL (8.4-10.2); Carbon Dioxide 24 mmol/L (22-29); Chloride 108 mmol/L (96-108); Estimated Glomerular Filt Rate > 60; Glucose Fasting 82 mg/dL (60-99); Sodium 138 mmol/L (135-145); Total Protein 7.2 g/dL (6.5-8.0)
== END 2023-10-20 08:31 | disposition home or self-care (01) ==
LOC: HO.LAB 08:30
PROVIDERS: PCP Internal Medicine; Visit Provider Internal Medicine
DX: R63.1 Polydipsia (principal)
CPT/HCPCS: 36415; 80053

== ENCOUNTER 2024-03-03 14:06 | Outpatient (REF) | payer OTHER, SELFPAY ==
[2024-03-03 14:42] LABS: Hematocrit 40.6 % (37.0-47.0); Mean Corpuscular HGB Conc 34.5 g/dl (31.0-35.0); Mean Corpuscular Hemoglobin 29.4 pg (27.0-33.0); Mean Corpuscular Volume 85.3 fL (80.0-98.0); Mean Platelet Volume 9.2 fL (9.4-12.3); Platelet Count 329 X10*3/uL (160-400); Red Blood Count 4.76 X10*6/uL (4.20-5.50); Red Cell Distribution Width 11.9 % (11.0-16.0); White Blood Count 5.6 X10*3/uL (4.8-10.8)
[2024-03-03 15:15] LABS: Anion Gap 12 (12-20); Blood Urea Nitrogen 6 mg/dL (9-16); C Reactive Protein < 0.04 mg/dL (< or = 0.50); Calcium 9.4 mg/dL (8.4-10.2); Carbon Dioxide 22 mmol/L (22-29); Chloride 110 mmol/L (96-108); Estimated Glomerular Filt Rate > 60; Glucose Random 88 mg/dL (60-115); Magnesium 2.2 mg/dL (1.6-2.6); Phosphorus 2.3 mg/dL (2.7-4.5); Potassium 3.7 mmol/L (3.3-5.1); Sodium 140 mmol/L (135-145)
[2024-03-03 15:25] LABS: TSH reflex Free T4 0.41 uIU/mL (0.32-4.0)
[2024-03-03 16:01] LABS: Erythrocyte Sedimentation Rate 6 MM/HR (0-20)
== END 2024-03-03 14:07 | disposition home or self-care (01) ==
LOC: HO.LAB 14:06
PROVIDERS: PCP Internal Medicine; Visit Provider Registered Nurse
DX: M79.7 Fibromyalgia (principal)
CPT/HCPCS: 36415; 80048; 82085; 82550; 83735; 84100; 84443; 85027; 85652; 86140

== ENCOUNTER 2024-04-05 14:03 | Outpatient (AMB) | payer OTHER, SELFPAY ==
--- NOTE | 2024-04-05 14:10 | MHC.OFFVIS ---
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 Present (Lily) Accompanied by: Self / Same As Patient Allergies Seasonal Allergies Allergy (Intermediate, Verified 04/05/24 14:15) Itching environmental allergies Allergy (Mild, Verified 04/05/24 14:15) itchy eyes, runny nose metronidazole [Flagyl] Adverse Reaction (Intermediate, Verified 04/05/24 14:15) stomach upset paroxetine [Paxil] Adverse Reaction (Intermediate, Verified 04/05/24 14:15) vomiting clarithromycin [From Biaxin] Adverse Reaction (Mild, Verified 04/05/24 14:15) Headache lactose [Lactose] Adverse Reaction (Mild, Verified 04/05/24 14:15) cramping, vomiting HPI Comments Details: She is a premenopausal woman presenting for annual examination. Doing well with sales and marketing vice president concerns: Increased clear discharge external itching about 80% of the time, vaginal pressure, low back pain. Occasional monthly menses with her Kyleena IUD, inserted in 06/06/2020, interested in a new IUD next year. Currently is sexually active. STI screening offered; she accepts. She tries to eat healthy and stays active with exercise. Denies family history of breast, ovarian or colon cancer. Last pap smear 2023, negative. Prior Pap 2020-HPV positive, negative in 2021. [facility] Medical History (Updated 04/05/24 @ 14:38 by Lyndsey White CNM) IUD (intrauterine device) in place Abnormal Pap smear of vagina Multinodular thyroid Hematuria Thyroid nodule Mild asthma Otitis SILVIA (generalized anxiety disorder) Hyperthyroidism Low TSH level Hair loss Strep sore throat Overweight (BMI 25.0-29.9) Fibromyalgia Restless leg syndrome GERD (gastroesophageal reflux disease) IBS (irritable bowel syndrome) Depression Anxiety delivery delivered Surgical History History of delivery H/O laparoscopy [place] teeth extracted Hx of tonsillectomy Family History Father Kidney failure Heart disease Colon polyps Bipolar 1 disorder Hypertension CVD (cardiovascular disease) Chronic mental illness Substance use disorder Mother Seizure Depression Anxiety Maternal Grandmother Hemorrhagic stroke History of multiple strokes Maternal Grandfather Cancer Family/Other Breast cancer Family/Other Colon cancer Social History Household Members: Family Housing: Apartment Alcohol intake: never Patient Tobacco Use Status: Never used Tobacco e-Cigarette/Vaping Use: Never Used Second Hand Smoke Exposure: No service: No Current occupational status: employed Sexual orientation: Straight/Heterosexual Gender identity: Female Cognitive needs: No Hearing needs: No Vision needs: Yes Female Reproductive History Menstrual Age of Menarche: 10 control method: progestin IUCD (mirena) Total pregnancies: 2 Full term: 1 Date of last pap smear: 04/01/23 (neg pap, neg hpv) Date of Mammogram: 03/18/23 (bi rad 1) Review of Systems Const All systems reviewed & are unremarkable except as noted in HPI and below Reports as per HPI Eyes Reports no additional complaints ENT Reports no additional complaints Card Reports no additional complaints Resp Reports no additional complaints GI Reports as per HPI and Reports no additional complaints Reports as per HPI Musc Reports no additional complaints Skin/Breast Reports as per HPI Neuro Reports no additional complaints Psych Reports no additional complaints Endo Reports no additional complaints Juan/Lymph Reports no additional complaints Aller/Immun Reports no additional complaints Physical Exam Vital Signs: Last Vital Signs BP 120/78 04/05/24 14:14 BMI result Body Mass Index 26.7 Const General: cooperative, healthy appearing, no acute distress, well developed and alert Orientation/consciousness: patient oriented x3 HEENT Head: Yes normal to inspection Eyes General: appearance normal, both eyes and all related structures Neck Neck: Yes normal visual inspection Thyroid: Thyroid normal Chest Chest palpation & inspection: normal inspection of the chest and other (no puckering, dimpling, peau de orange, retraction, discharge, masses) Breast/axilla inspection: normal inspection of the breasts Breast/axilla palpation: normal palpation of the breasts Resp Effort & Inspection: normal respiratory effort GI Inspection: Yes normal to inspection Palpation (GI): Soft to palpation Rectal Exam - Female: deferred General: Yes bladder normal to palpation External Female Exam: normal external appearance and normal appearance of the urethra Speculum Exam - Vagina: normal appearance of the vagina, normal palpation and normal vaginal discharge Speculum Exam - Cervix: normal appearance of the cervix, normal palpation and Other cervical findings present (IUD strings at the os, yellow-green discharge) Bimanual exam- vagina & uterus: normal bimanual exam, normal palpation, uterine size normal, bladder normal to palpation, normal palpation and non-tender Bimanual Exam- Adnexa, other: no masses Skin General skin exam: no rashes or lesions noted Rashes: no rashes Neuro General: patient oriented x3 Cognition (Neuro): normal cognition Extrem General: Yes normal to inspection Psych Attitude: cooperative Thought process: Normal thought process present Assessment & Plan Assessment & Plan (1) Encounter for well woman exam with routine gynecological exam: Code(s): Z01.419 - Encounter for gynecological examination (general) (routine) without abnormal findings Category: Medical Plan Discussed: Current recommendations for pap smears per ASCCP guidelines. Breast awareness and periodic breast exams. Maintain a healthy lifestyle including a well balanced diet and routine exercise. GC chlamydia, BV panel and urinalysis today. Plan blood work at the lab for STD screening. Await results for plan of care. IUD exchange next year. Patient verbalizes understanding and agrees to the plan of care. She was given opportunity to ask questions and all questions were answered to the best of my ability. RTO in one year for annual sales and marketing vice president examination. This note is constructed using voice recognition software. While every effort has been made to ensure accuracy, facilities officer errors may have been included. Orders: Orders CT NG by PCR Today R10.2 - Pelvic and perineal pain, Z01.419 - Encounter for gynecological examination (general) (routine) without abnormal findings HIV Ab/Ag Today Z20.2 - Contact with and (suspected) exposure to infections with a predominantly sexual mode of transmission Hepatitis C Antibody Reflex Today Z20.2 - Contact with and (suspected) exposure to infections with a predominantly sexual mode of transmission Hepatitis B Core Antibody Today Z20.2 - Contact with and (suspected) exposure to infections with a predominantly sexual mode of transmission Syphilis Screen Today Z20.2 - Contact with and (suspected) exposure to infections with a predominantly sexual mode of transmission Bacterial Vaginosis Panel Today R10.2 - Pelvic and perineal pain, Z01.419 - Encounter for gynecological examination (general) (routine) without abnormal findings Coding Level of Care Code Est Pt Prev Care 18-39y(27055) Diagnoses Encounter for well woman exam with routine gynecological exam Z01.419
[2024-04-05 14:14] VITALS: BP 120/78; BMI 26.7
== END 2024-04-05 15:04 | disposition home or self-care (01) ==
PROVIDERS: PCP Internal Medicine; Visit Provider Advanced Practice Midwife
DX: Z01.419 Encounter for gynecological examination (general) (routine) without abnormal findings (principal)
CPT/HCPCS: 99395; 99459

== ENCOUNTER 2024-04-05 14:03 | Outpatient (REF) | payer OTHER, SELFPAY ==
[2024-04-06 09:38] LABS: HBc Num1 0.09 S/CO (0.00-0.79); HIV AB/AG Nonreactive (Nonreactive); HIV Num 1 0.09 S/CO (0.00-0.99); Hepatitis B Core Antibody Nonreactive (Nonreactive); ~HepC Num1 0.21 S/CO (0.00-0.79); ~Hepatitis C Antibody Nonreactive (Nonreactive)
[2024-04-06 09:57] LABS: Syphilis Screen Nonreactive (Nonreactive)
== END 2024-04-05 14:04 | disposition home or self-care (01) ==
LOC: HO.LNP 14:03
PROVIDERS: PCP Internal Medicine; Visit Provider Advanced Practice Midwife
DX: Z01.419 Encounter for gynecological examination (general) (routine) without abnormal findings (principal); Z20.2 Contact with and (suspected) exposure to infections with a predominantly sexual mode of transmission; R10.2 Pelvic and perineal pain; Z11.59 Encounter for screening for other viral diseases
CPT/HCPCS: 86704; 86780; 86803; 87389; 99395; 99459

== ENCOUNTER 2024-04-05 15:18 | Outpatient (REF) | payer OTHER, SELFPAY ==
[2024-04-06 03:41] LABS: CT PCR NOT DETECTED (Not Detect.); NG PCR NOT DETECTED (Not Detect.)
[2024-04-06 11:31] LABS: Bacterial Vaginosis PCR NEGATIVE (Negative); Candida Group PCR NOT DETECTED (Not Detect); Candida glab krusei PCR NOT DETECTED (Not Detect); Trichomonas vaginalis PCR NOT DETECTED (Not Detect)
== END 2024-04-05 15:19 | disposition home or self-care (01) ==
LOC: HO.LAB 15:18
PROVIDERS: PCP Internal Medicine; Visit Provider Advanced Practice Midwife
DX: Z01.419 Encounter for gynecological examination (general) (routine) without abnormal findings (principal); R10.2 Pelvic and perineal pain; Z11.3 Encounter for screening for infections with a predominantly sexual mode of transmission
CPT/HCPCS: 81515; 87491; 87591

== ENCOUNTER 2024-05-03 12:36 | Outpatient (REF) | payer OTHER, SELFPAY ==
[2024-05-03 14:09] LABS: Phosphorus 2.7 mg/dL (2.7-4.5)
== END 2024-05-03 12:37 | disposition home or self-care (01) ==
LOC: HO.LAB 12:36
PROVIDERS: PCP Internal Medicine; Visit Provider Internal Medicine
DX: Z00.00 Encounter for general adult medical examination without abnormal findings (principal); Z23 Encounter for immunization; F33.0 Major depressive disorder, recurrent, mild; E83.39 Other disorders of phosphorus metabolism
CPT/HCPCS: 36415; 84100; 90471; 90656; 96127; 99395

== ENCOUNTER 2024-05-03 12:36 | Outpatient (AMB) | payer OTHER, SELFPAY ==
--- NOTE | 2024-05-03 12:51 | A.OFFPC_ITS ---
Vital Signs 05/03/24 12:52 Height 5 ft 2 in Weight 155 lb BMI 28.3 BP 110/80 Blood Pressure Location Lt brachial Position Sitting Intake Visit Reasons: PE Intake Note: Patient here for a physical exam Site Specialist Required: No Accompanied by: Self / Same As Patient Allergies Seasonal Allergies Allergy (Intermediate, Verified 05/03/24 12:59) Itching environmental allergies Allergy (Mild, Verified 05/03/24 12:59) itchy eyes, runny nose metronidazole [Flagyl] Adverse Reaction (Intermediate, Verified 05/03/24 12:59) stomach upset paroxetine [Paxil] Adverse Reaction (Intermediate, Verified 05/03/24 12:59) vomiting clarithromycin [From Biaxin] Adverse Reaction (Mild, Verified 05/03/24 12:59) Headache lactose [Lactose] Adverse Reaction (Mild, Verified 05/03/24 12:59) cramping, vomiting Medication List - Last Reconciled 05/03/24 by Jammie Boyd MD lorazepam 0.5 mg PO BEDTIME PRN mirtazapine 15 mg PO DAILY pramipexole 0.5 mg PO BEDTIME prochlorperazine maleate (Compazine) 5 mg PO TID PRN 30 days topiramate XR 50 mg PO DAILY trazodone 50 - 150 mg PO BEDTIME PRN Tobacco use date assessed: 05/03/24 Dental Screening Dental Screen Date: 05/03/24 Did you have a dental visit in the last 12 months?: Yes Did you have a dental problem in the last 6 months where you did not have access to dental care?: No Was dental information given to patient?: Patient has dentist HPI HPI Comments History of Present Illness Details The patient is a 33-year-old female presenting for an annual physical exam. The patient reports that her medications for anxiety and depression include lorazepam as needed, mirtazapine, promipexole for restless legs, compazine for gastrointestinal issues, Topamax, and trazodone for sleep. Her [facility] surgical history includes a caesarean section, laparoscopic procedures, wisdom tooth extraction, and tonsillectomy. The patient's father had a medical history of heart disease, kidney failure, colon polyps, hypertension, pancreatitis, and substance use disorder. The mother has a history of seizures, depression, and anxiety. The patient denies smoking and alcohol use. She does report occasional chest pain and shortness of breath which is improving, and minimal phosphorus deficiency noted in the February blood work. - Up-to-date on vaccinations including T dap - Flu shot recommended and accepted - Negative Pap smear result with no HPV - February lab results showed normal hem oglobin, blood sugar (88), thyroid, and aldolase levels - Low phosphorus level identified, from 2.3, normal being 2.7 - Physical activity noted as an area for improvement [facility] Medical History IUD (intrauterine device) in place Abnormal Pap smear of vagina Multinodular thyroid Hematuria Thyroid nodule Mild asthma Otitis SILVIA (generalized anxiety disorder) Hyperthyroidism Low TSH level Hair loss Strep sore throat Overweight (BMI 25.0-29.9) Fibromyalgia Restless leg syndrome GERD (gastroesophageal reflux disease) IBS (irritable bowel syndrome) Depression Anxiety delivery delivered Surgical History History of delivery H/O laparoscopy [place] teeth extracted Hx of tonsillectomy Family History (Updated 05/03/24 @ 13:05 by Jammie Boyd MD) Father Kidney failure Heart disease Colon polyps Bipolar 1 disorder Hypertension CVD (cardiovascular disease) Chronic mental illness Substance use disorder Pancreatitis Mother Seizure Depression Anxiety Maternal Grandmother Hemorrhagic stroke History of multiple strokes Maternal Grandfather Cancer Family/Other Breast cancer Family/Other Colon cancer Social History Household Members: Family Housing: Apartment Alcohol intake: never Patient Tobacco Use Status: Never used Tobacco e-Cigarette/Vaping Use: Never Used Second Hand Smoke Exposure: No service: No Current occupational status: employed Sexual orientation: Straight/Heterosexual Gender identity: Female Cognitive needs: No Hearing needs: No Vision needs: Yes Female Reproductive History Menstrual Age of Menarche: 10 Questionnaire PHQ-9 Over the last 2 weeks, how often have you been bothered by any of the following problems? 1. Little interest or pleasure in doing things: several days 2. Feeling down, depressed, or hopeless: several days 3. Trouble falling or staying asleep, or sleeping too much: not at all 4. Feeling tired or having little energy: more than half the days 5. Poor appetite or overeating: not at all 6. Feeling bad about yourself - or that you are a failure or have let yourself or your family down: several days 7. Trouble concentrating on things, such as reading the newspaper or watching television: not at all 8. Moving or speaking so slowly that other people could have noticed. Or the opposite - being so fidgety or restless that you have been moving around a lot more than usual: not at all 9. Thoughts that you would be better off or of hurting yourself in some way: not at all Total score: 5 Depression Screening Interpretation: Positive Depression Screening Follow-up: Existing condition, In treatment, Community Mental Health Worker F/U and Follow- up Visit Requested Depression Screening Done: Yes 64184 - PHQ-9 Billing: Yes Source: Developed by Drs. Braeden Maldonado, Carmencita Dukes, Sergei Escobar and colleagues, with an educational matias from [employer]. Thrive Questionnaire Date Thrive assessed: 05/03/24 I am a: Patient What is your living situation today?: I have a steady place to live Within the past 12 months, did the food you bought not last and you didn't have the money to get more?: Never true Within the past 12 months, did you worry whether your food would run out before you got money to buy more?: Never true Do you have trouble paying for medicines?: No Do you have trouble getting transportation to medical appointments?: No Do you have trouble paying your heating and electricity bill?: No Do you have trouble taking care of your child, family member or friend?: No Do you have trouble with day-to-day activities such as bathing, preparing meals, shopping, managing finances, etc.?: No Are you currently unemployed and looking for a job?: No Are you interested in more education?: No Please select the resources that you would like help with: None Currently or been in a relationship where the following occur: No concerns repo rted THRIVE Score: 0 AUDIT C Alcohol Use Questionnaire (AUDIT-C) 1. How often do you have a drink containing alcohol?: Never Total Score: 0 SILVIA-7 AMB Questionnaire SILVIA-7 Date SILVIA - 7 assessed: 02/04/25 Feeling nervous, anxious, or on edge: 1 = Several days Not being able to stop or control worryin = Several days Worrying too much about different things: 1 = Several days Trouble relaxin = Several days Being so restless that it is hard to sit still: 0 = Not at all Becoming easily annoyed or irritable: 1 = Several days Feeling afraid as if something awful might happen: 0 = Not at all Total SILVIA-7 score (0-4 normal; 5-9 mild; 10-14 moderate; 15-21 severe): 5 Source: Developed by Drs. Braeden Maldonado, Carmencita Dukes, Sergei Escobar and colleagues, with an educational matias from [employer]. SILVIA-7 Assessment Billing SILVIA-7 Assessment Tool: SILVIA-7 Assessment 10574 Review of Systems Const All systems reviewed & are unremarkable except as noted in HPI and below Card Denies chest pain at rest, Denies chest pain with activity, Denies edema, Denies irregular heart rhythm, Denies claudication, Denies dyspnea, Denies dyspnea on exertion, Denies orthopnea, Denies paroxysmal nocturnal dyspnea and Denies slow heart rate Resp Denies cough, Denies dyspnea and Denies dyspnea on exertion GI Denies abdominal pain, Denies change in bowel habits, Denies excessive flatus, Denies nausea and Denies vomiting Denies urinary incontinence, Denies urinary hesitancy and Denies urinary urgency Musc Denies atrophy, Denies deformity and Denies limited range of motion Skin/Breast Denies bleeding lesions, Denies changing lesions and Denies rash Physical exam (Primary Care) Vital Signs: Last Vital Signs BP 110/80 05/03/24 12:52 BMI result Body Mass Index 28.3 Tobacco/Smoking Status: Tobacco use Status Tobacco use date assessed 05/03/24 05/03/24 12:57 Patient Tobacco Use Status Never used Tobacco 05/03/24 12:57 e-Cigarette/Vaping Use Never Used 05/03/24 12:57 PHQ-9: PHQ-9 Score PHQ-9: Total score 5 05/03/24 13:17 Depression Screening Interpretation: Positive Depression Screening Follow-up: Existing condition, In treatment, Community Mental Health Worker F/U and Follow- up Visit Requested Thrive Assessment: Date of Thrive Assessment Date Thrive assessed 05/03/24 05/03/24 12:57 Currently or been in a relationship where the following occur: No concerns reported HENMT Head: Yes normal to inspection, Yes normocephalic and Yes atraumatic Ears: external ears normal Eyes General: appearance normal, both eyes and all related structures Eyelids: Yes eyelids normal Conjunctivae: conjunctivae normal Neck Neck: Yes normal visual inspection and Yes supple Resp Effort & Inspection: normal respiratory effort Auscultation: clear to auscultation bilaterally Cardio Jugular venous distension: no JVD Rate: regular rate Rhythm: regular rhythm Heart sounds: S1 normal heart sound present and S2 normal heart sound present GI Inspection: Yes normal to inspection Palpation (GI): Soft to palpation and nontender Auscultation: normal bowel sounds Skin General skin exam: no rashes or lesions noted Neuro General: no focal motor deficits Extrem General: Yes full ROM Psych Appearance: grossly normal Office Procedures Flu Questionnaire Does the patient have a severe egg allergy?: No Does the patient have severe life threatening allergies?: No Does the patient have a fever or illness today?: No Has the patient ever had Guillain-[place] Syndrome?: No Has the patient ever had any past reaction to a flu shot?: No Immunizations Fluarix Triv 9031-0383 (PF) 45 mcg (15 mcg x 3)/0.5 mL IM syringe Performing Provider: Jammie Boyd MD [facility] [place] Administered by: NOE Swann on 05/03/24 13:17 Dose Route Admin Location Dispensed Lot Number Expiration Date [facility] Continuous Drier Helper 0.5 mL IM Left Deltoid 0.5 mL [id number] 09/26/24 [id number] [employer] [facility] [place] VIS Given Date VIS Provided VIS Publication Date 05/03/24 Single Vaccine 20 Eligibility Eligibility Date Funding Source Not [facility] Eligible 05/03/24 Private Coding Level of Care Code Est Pt Prev Care 18-39y(30414) Diagnoses Physical exam Z00.00 Mild recurrent major depression F33.0 Additional Codes SILVIA-7 Assessment Billing - SILVIA-7 Assessment Tool: SILVIA-7 Assessment 03262 ([id number]) PHQ-9 - 55752 - PHQ-9 Billing: Yes ([id number]) Time Spent (min) 30 Assessment & Plan Assessment & Plan (1) Physical exam: Code(s): Z00.00 - Encounter for general adult medical examination without abnormal findings Category: Medical (2) Mild recurrent major depression: Code(s): F33.0 - Major depressive disorder, recurrent, mild Category: Medical Plan - Administer flu vaccine during this visit - Monitor mental health symptoms with psychiatric follow-up - Repeat phosphorus laboratory test to determine current levels - Encourage increased physical activity to address intermittent shortness of breath - Reassess symptoms that can be indicative of emerging conditions Patient was informed and verbally consented to the use of an ambient scribe for clinic note documentation during this visit. After reviewing the patient's current health status, we discussed that all vaccinations are up-to-date, including the Tdap. I confirmed that the Pap smear was negative for HPV. We agreed to keep monitor of her current psychiatric treatment and to report any significant changes to her psychiatrist. The patient acknowledged the recommendation to improve her physical activity levels, which should help with her respiratory and cardiovascular health. I discussed the administration of the flu shot and its importance for the flu season. We agreed on repeating the phosphorus test to ensure levels return to normal, given the mild low level previously noted. Orders: Orders Phosphorus Today E83.39 - Other disorders of phosphorus metabolism Influenza 3314-6470 Immunization Today Z23 - Encounter for immunization Patient Instructions: - Receive the flu vaccine today - Exercise regularly, aiming to increase physical activity gradually - Undergo follow-up phosphorus blood test as discussed - Maintain current psychiatric treatment and report any changes - Continue adherence to prescribed medications
[2024-05-03 12:52] VITALS: BP 110/80; BMI 28.3
== END 2024-05-03 13:21 | disposition home or self-care (01) ==
PROVIDERS: PCP Internal Medicine; Visit Provider Internal Medicine
DX: Z00.00 Encounter for general adult medical examination without abnormal findings (principal); F33.0 Major depressive disorder, recurrent, mild; Z23 Encounter for immunization

== ENCOUNTER 2024-05-25 03:44 | Emergency (ER) | payer OTHER, SELFPAY ==
--- NOTE | ~2024-05-25 | MR_ITS ---
EXAMINATION: MR BRAIN WITHOUT IV CONTRAST HISTORY: RT ARM NUMBNESS ? CVA TECHNIQUE: Sagittal T1 and FLAIR, and axial T1, FLAIR, T2, gradient echo, and diffusion weighted MR images of the brain were obtained. COMPARISON: Correlation is made with an unenhanced head CT performed earlier in the day. FINDINGS: There are scattered subcortical and periventricular white matter hyperintensities on the FLAIR and T2-weighted images. While these are nonspecific, they are greater than expected for patient of this age. There is no mass effect or midline shift. The ventricular system is normal in size and configuration. No intra or extra-axial fluid collections are identified. There are no foci of restricted diffusion. Normal vascular flow voids are noted in the basilar and carotid arteries. The visualized paranasal sinuses are clear. MR/MR head/brain wo con IMPRESSION: 1. No evidence of an acute infarct. 2. Nonspecific subcortical and periventricular white matter hyperintensities which are greater than expected for patient of this age. Differential diagnostic considerations include migraine, Lyme disease, demyelinating disease, vasculitis, small vessel ischemic disease. Electronically signed by: Braeden Lewis MD 05/25/2024 03:04 PM [facility]
--- NOTE | ~2024-05-25 | CT_ITS ---
EXAMINATION: CT HEAD NECK ANGIOGRAPHY WITH IV CONTRAST HISTORY: rt side numbness COMPARISON: There are no prior studies for comparison. TECHNIQUE: Helical axial images were obtained from the skull base to the vertex without contrast per standard departmental protocol. Subsequently, helical axial images were obtained from the aortic arch to the vertex after intravenous injection of contrast per standard Department protocol. MIP/3D reconstructions were obtained and reviewed. One or more of the following techniques was used for dose reduction: Automated exposure control, adjustment of the mA and/or kV according to patient size, use of iterative reconstruction technique. DLP: 1375 mGy-cm FINDINGS: CT BRAIN: BRAIN: The brain parenchyma is unremarkable, demonstrating normal jeffers/white differentiation. The ventricular system is normal in size and configuration. There is no mass effect or midline shift. No intra or extra-axial fluid collections are identified. SINUSES/MASTOID AIR CELLS: The paranasal sinuses, mastoid air cells and middle ear cavities are clear and well pneumatized. ORBITS: The visualized orbits are unremarkable. BONES/SOFT TISSUES: The extracranial soft tissues are unremarkable. No suspicious lytic or sclerotic lesions. CTA NECK: AORTIC ARCH: The visualized portions of the arch as well as innominate, right subclavian, and left subclavian arteries show no hemodynamically significant stenosis. Right common carotid artery: There is no large vessel occlusion or hemodynamically significant stenosis. Right internal carotid artery: There is no large vessel occlusion or hemodynamically significant stenosis. Left common carotid artery: There is no large vessel occlusion or hemodynamically significant stenosis. Left internal carotid artery: There is no large vessel occlusion or hemodynamically significant stenosis. (Extracranial internal carotid artery stenosis estimates are based on use of distal ICA as the denominator.) Right vertebral artery: There is no large vessel occlusion or hemodynamically significant stenosis. Left vertebral artery: There is no large vessel occlusion or hemodynamically significant stenosis. CTA HEAD: Right intracranial ICA: There is no large vessel occlusion, hemodynamically significant stenosis, or aneurysm. Right ALHAJI: There is no large vessel occlusion, hemodynamically significant stenosis, or aneurysm. Right MCA: There is no large vessel occlusion, hemodynamically significant stenosis, or aneurysm. Left intracranial ICA: There is no large vessel occlusion, hemodynamically significant stenosis, or aneurysm. Left ALHAJI: There is no large vessel occlusion, hemodynamically significant stenosis, or aneurysm. Left MCA: There is no large vessel occlusion, hemodynamically significant stenosis, or aneurysm. Basilar artery: There is no large vessel occlusion, hemodynamically significant stenosis, or aneurysm. Superior cerebellar arteries: There is no large vessel occlusion, hemodynamically significant stenosis, or aneurysm. Right PHYSICAL EDUCATION TEACHER: There is no large vessel occlusion, hemodynamically significant stenosis, or aneurysm. Left PHYSICAL EDUCATION TEACHER: There is no large vessel occlusion, hemodynamically significant stenosis, or aneurysm. VEINS: Venous enhancement is within normal limits for this technique. SOFT TISSUES: The bilateral parotid, submandibular, and thyroid glands are unremarkable. No laryngeal abnormality is identified. There is no cervical lymphadenopathy. CT/CT angio head neck IMPRESSION: 1. No large vessel occlusion, hemodynamically significant stenosis, or aneurysm in the head and neck. 2. No acute intracranial findings. Electronically signed by: Braeden Lewis MD 05/25/2024 08:41 AM [facility]
[2024-05-25 03:57] VITALS: BP 134/85; PULSE 82; RESP 16; TEMP 36.8; O2SAT 98; BMI 27.0
[2024-05-25 04:25] LABS: MANUAL DIFF FLAG NO
[2024-05-25 04:26] LABS: Basophils Percent Auto 0.6 % (0-2); Eosinophils Absolute Auto 0.7 X10*3/uL (0.0-0.4); Eosinophils Percent Auto 11.3 % (0-4); Hematocrit 37.7 % (37.0-47.0); Hemoglobin 13.4 g/dl (12.0-16.0); Imm Gran Abs Auto 0.01 X10*3/uL (0.00-0.03); Imm Gran Pct Auto 0.2 % (0.0-0.4); Lymphocytes Absolute Auto 2.8 X10*3/uL (1.2-4.9); Lymphocytes Percent Auto 44.3 % (20-40); Mean Corpuscular HGB Conc 35.5 g/dl (31.0-35.0); Mean Corpuscular Hemoglobin 29.2 pg (27.0-33.0); Mean Corpuscular Volume 82.1 fL (80.0-98.0); Monocytes Absolute Auto 0.5 X10*3/uL (0.1-1.2); Monocytes Percent Auto 8.4 % (2-11); Neutrophils Absolute Auto 2.2 x10*3/uL (2.0-8.3); Neutrophils Percent Auto 35.2 % (45-73); Platelet Count 316 X10*3/uL (160-400); Red Blood Count 4.59 X10*6/uL (4.20-5.50); Red Cell Distribution Width 11.9 % (11.0-16.0); White Blood Count 6.2 X10*3/uL (4.8-10.8)
[2024-05-25 04:45] LABS: Alkaline Phosphatase 65 U/L (39-117)
[2024-05-25 04:46] LABS: Alanine Aminotransferase 11 U/L (0-31); Albumin Level 3.9 g/dL (3.5-5.0); Anion Gap 10 (12-20); Aspartate Amino Transferase 19 U/L (5-31); Bilirubin Total 0.3 mg/dL (0.0-1.0); Blood Urea Nitrogen 4 mg/dL (9-16); Calcium 9.2 mg/dL (8.4-10.2); Carbon Dioxide 24 mmol/L (22-29); Chloride 111 mmol/L (96-108); Creatinine Clr Calc Pharmacy 101.7; Estimated Glomerular Filt Rate > 60; Glucose Random 99 mg/dL (60-115); Potassium 3.4 mmol/L (3.3-5.1); Sodium 142 mmol/L (135-145)
[2024-05-25 04:49] LABS: HCG Quantitative < 2 mIU/mL
[2024-05-25 06:37] VITALS: BP 127/88; PULSE 75; RESP 17; TEMP 37.2; O2SAT 100
--- NOTE | 2024-05-25 07:05 | ED_ITS ---
HPI - General Adult General Chief complaint: Extremity Problem Stated complaint: right side numbness from arm to shoulder Time Seen by Provider: 05/25/24 06:56 Source: patient Limitations: no limitations History of Present Illness HPI narrative: This is a 33 years old female with a history of migraines, anxiety presented to the emergency department with a chief complaint of right upper extremity paresthesia since about 02:20. She denies any weakness denies any speech problems denies any double vision. Onset (ago): hour(s) (5) Location: upper extremity Radiation: non-radiation Severity: moderate Quality: other ( Paresthesia) Pain Consistency: constant Relieving factors: none Exacerbating factors: none Associated symptoms: denies other symptoms Related Data Home Medications ?Medication ?Instructions ?Recorded ?Confirmed pramipexole 0.5 mg tablet 0.5 mg PO BEDTIME 08/27/22 05/03/24 trazodone 50 mg tablet 50 - 150 mg PO BEDTIME PRN 02/23/23 05/03/24 lorazepam 0.5 mg tablet 0.5 mg PO BEDTIME PRN 04/05/24 05/03/24 mirtazapine 15 mg tablet 15 mg PO DAILY 04/05/24 05/03/24 topiramate 50 mg capsule,extended 50 mg PO DAILY 04/05/24 05/03/24 release 24 hr Previous Rx's ?Medication ?Instructions ?Recorded prochlorperazine maleate 5 mg 5 mg PO TID PRN nausea and 07/25/23 tablet (Compazine) vomiting 30 days #90 tabs Allergies Allergy/AdvReac Type Severity Reaction Status Date / Time Seasonal Allergies Allergy Intermediate Itching Verified 05/25/24 04:05 environmental allergies Allergy Mild itchy Verified 05/25/24 04:05 eyes, runny nose metronidazole [Flagyl] AdvReac Intermediate stomach Verified 05/25/24 04:05 upset paroxetine [Paxil] AdvReac Intermediate vomiting Verified 05/25/24 04:05 clarithromycin [From Biaxin] AdvReac Mild Headache Verified 05/25/24 04:05 lactose [Lactose] AdvReac Mild cramping, Verified 05/25/24 04:05 vomiting Review of Systems 2 Constitutional: Constitutional: Reports headache(s) Eyes: Eyes: Reports no additional eye complaints ENT: Reports system reviewed and no additional complaints, except as documented and Reports headache(s) Respiratory: Respiratory: Reports no additional respiratory complaints Neurologic: Reports headache(s) [facility] Past Medical History Attestation statement: The following information was validated with the patient. Medical History IUD (intrauterine device) in place Abnormal Pap smear of vagina Multinodular thyroid Hematuria Thyroid nodule Mild asthma Otitis SILVIA (generalized anxiety disorder) Hyperthyroidism Low TSH level Hair loss Strep sore throat Overweight (BMI 25.0-29.9) Fibromyalgia Restless leg syndrome GERD (gastroesophageal reflux disease) IBS (irritable bowel syndrome) Depression Anxiety delivery delivered Surgical History History of delivery H/O laparoscopy [place] teeth extracted Hx of tonsillectomy Family History Family History Father Kidney failure Heart disease Colon polyps Bipolar 1 disorder Hypertension CVD (cardiovascular disease) Chronic mental illness Substance use disorder Pancreatitis Mother Seizure Depression Anxiety Maternal Grandmother Hemorrhagic stroke History of multiple strokes Maternal Grandfather Cancer Family/Other Breast cancer Family/Other Colon cancer Social History Social History Household Members: Family Housing: Apartment Alcohol intake: never Patient Tobacco Use Status: Never used Tobacco e-Cigarette/Vaping Use: Never Used Second Hand Smoke Exposure: No Advance Directives: No Do you have a plan to hurt others: No Plan service: No Current occupational status: employed Sexual orientation: Straight/Heterosexual Gender identity: Female Cognitive needs: No Hearing needs: No Vision needs: Yes Physical Exam ED Vital Signs: Vital Signs - 24 hr 05/25/24 03:57 05/25/24 06:37 05/25/24 15:50 Temperature 98.3 F 98.9 F Pulse Rate 82 75 89 Respiratory Rate 16 17 16 Blood Pressure 134/85 127/88 115/67 Pulse Oximetry 98 100 98 Oxygen Delivery Method Room Air Room Air Room Air BMI result Body Mass Index 27.0 on examination she looks well she is not toxic-appearing interactive Const General: cooperative Nutritional Appearance: average body habitus Orientation/consciousness: patient oriented x3 Limitations: no limitations HENMT Head: Yes normal to inspection Ears: hearing grossly normal bilaterally General nose exam: Normal external nose present Face and sinus: Yes normal facial exam Mouth: Normal oral and palatal mucosa present Throat: Yes posterior oropharynx normal Neck Neck: Yes normal visual inspection Chest Chest palpation & inspection: normal inspection of the chest Resp Effort & Inspection: normal respiratory effort Cardio Jugular venous distension: no JVD Rate: regular rate Rhythm: regular rhythm GI Inspection: Yes normal to inspection Palpation (GI): Soft to palpation and not firm Skin General skin exam: no rashes or lesions noted Neuro Other: patient is awake alert oriented x3 cranial nerves are intact no deficit in strength she has a decreased sensation in the right upper extremity General: patient oriented x3 Course Reevaluation(s) Reevaluation #1: I re-examined the patient the patient is doing much better no numbness no tingling, workup is essentially negative including CT angiography head and neck and MRI at this point she is okay to be discharged Time: 15:55 Medications Administered Discontinued Medications Generic Name Dose Route Start Last Admin Trade Name Freq PRN Reason Stop Dose Admin Diphenhydramine HCl 25 mg 05/25/24 07:03 05/25/24 07:23 Diphenhydramine Hcl 50 Mg/Ml Vial IVPUSH 05/25/24 07:04 25 mg ONCE ONE Administration Sodium Chloride 1,000 mls @ 999 mls/hr 05/25/24 10:30 05/25/24 13:34 Ns IVCONT 05/25/24 11:30 Infused .Q1H1M STEFANO Infusion Iohexol 100 ml 05/25/24 08:22 05/25/24 08:23 Iohexol 350 Mg/Ml 100 Ml Infus..Btl IV 05/25/24 08:23 70 ml ONCE ONE Administration Metoclopramide HCl 10 mg 05/25/24 07:03 05/25/24 07:23 Metoclopramide Hcl 10 Mg/2 Ml Vial IVPUSH 05/25/24 07:04 10 mg ONCE ONE Administration Ondansetron HCl 4 mg 05/25/24 09:58 05/25/24 10:11 Ondansetron Hcl 4 Mg/2 Ml Vial IVPUSH 05/25/24 09:59 4 mg ONCE ONE Administration Medical Decision Making Medical Decision Making MDM Narrative: patient presented with a right upper extremity paresthesia we will get labs imaging Differential Diagnosis Differential Diagnoses: The differential diagnosis associated with the presentation includes complicated migraines/unlikely TIA she has no risk factor unlikely CVA Admission/Observation Consideration of admission/observation: Escalation of care including admission/observation considered Lab Data MDM Lab Attestation statement: I reviewed the patient's lab results. 05/25/24 04:22 05/25/24 04:22 Labs: Lab Results 05/25/24 Range/Units 04:22 WBC 6.2 (4.8-10.8) X10*3/uL RBC 4.59 (4.20-5.50) X10*6/uL Hgb 13.4 (12.0-16.0) g/dl Hct 37.7 (37.0-47.0) % MCV 82.1 (80.0-98.0) fL MCH 29.2 (27.0-33.0) pg MCHC 35.5 H (31.0-35.0) g/dl RDW 11.9 (11.0-16.0) % Plt Count 316 (160-400) X10*3/uL MPV 9.0 L (9.4-12.3) fL Immature Gran % (Auto) 0.2 (0.0-0.4) % Neut % (Auto) 35.2 L (45-73) % Lymph % (Auto) 44.3 H (20-40) % [place] % (Auto) 8.4 (2-11) % Eos % (Auto) 11.3 H (0-4) % Baso % (Auto) 0.6 (0-2) % Lymph # (Auto) 2.8 (1.2-4.9) X10*3/uL [place] # (Auto) 0.5 (0.1-1.2) X10*3/uL Eos # (Auto) 0.7 H (0.0-0.4) X10*3/uL Baso # (Auto) 0.0 (0.0-0.2) X10*3/uL Abs Immat Gran (auto) 0.01 (0.00-0.03) X10*3/uL Absolute Neuts (auto) 2.2 (2.0-8.3) x10*3/uL Absolute Nucleated RBC 0.000 (0.0-0.012) X10*3/uL Nucleated RBC % (auto) 0.0 (0.0-0.2) /100WBC Sodium 142 (135-145) mmol/L Potassium 3.4 (3.3-5.1) mmol/L Chloride 111 H (96-108) mmol/L Carbon Dioxide 24 (22-29) mmol/L Anion Gap 10 L (12-20) BUN 4 L (9-16) mg/dL Creatinine 0.72 (0.5-1.4) mg/dL Estim Creat Clear Calc 101.7 Estimated GFR > 60 Random Glucose 99 (60-115) mg/dL Calcium 9.2 (8.4-10.2) mg/dL Total Bilirubin 0.3 (0.0-1.0) mg/dL AST 19 (5-31) U/L ALT 11 (0-31) U/L Alkaline Phosphatase 65 (39-117) U/L Total Protein 7.0 (6.5-8.0) g/dL Albumin 3.9 (3.5-5.0) g/dL Beta HCG, Quant < 2 mIU/mL Independent Interpretation I performed an independent interpretation of an: CT Scan Interpretation: no acute disease Radiology Impression Discussion of test interpretation with radiology: I have reviewed the radiologist's reading. Radiologist Impression: MR/MR head/brain wo con IMPRESSION: 1. No evidence of an acute infarct. 2. Nonspecific subcortical and periventricular white matter hyperintensities which are greater than expected for patient of this age. Differential diagnostic considerations include migraine, Lyme disease, demyelinating disease, vasculitis, small vessel ischemic disease. Electronically signed by: Braeden Lewis MD 05/25/2024 03:04 PM [facility] Discharge Plan Discharge Clinical Impression: Paresthesia of arm Patient Disposition: Home, Self-Care Instructions: Paresthesia (ED) Additional Instructions: follow-up with your primary care physician return to the emergency room if you worse Prescriptions: No Action prochlorperazine maleate [Compazine] 5 mg tablet 5 mg PO TID PRN (Reason: nausea and vomiting) 30 Days Qty: 90 1RF Rx Instructions: Use of Zofran does not work trazodone 50 mg tablet 50 - 150 mg PO BEDTIME PRN pramipexole 0.5 mg tablet 0.5 mg PO BEDTIME lorazepam 0.5 mg tablet 0.5 mg PO BEDTIME PRN topiramate 50 mg capsule,extended release 24hr 50 mg PO DAILY mirtazapine 15 mg tablet 15 mg PO DAILY Referrals: Jammie Castle MD [Primary Care Provider] - 2 days Print Language: Mohawk
[2024-05-25] MEDS: diphenhydrAMINE HCL 50 MG/ML VIAL 25 MG IVPUSH (07:23)
[2024-05-25] MEDS: Metoclopramide HCl 10 MG/2 ML VIAL IVPUSH (07:23)
[2024-05-25] MEDS: iohexoL 350 MG/ML 100 ML INFUS..BTL IV (08:23)
[2024-05-25] MEDS: ondansetron HCL 4 MG/2 ML VIAL IVPUSH (10:11)
[2024-05-25] MEDS: 0.9 % Sodium Chloride 1,000 ML 999 ML IVCONT (10:50)
[2024-05-25 15:50] VITALS: BP 115/67; PULSE 89; RESP 16; O2SAT 98
[2024-05-25 16:20] VITALS: BP 115/67; PULSE 89; RESP 16; TEMP 36.6; O2SAT 98
== END 2024-05-25 16:22 | disposition home or self-care (01) ==
PROVIDERS: Emergency Provider Emergency Medicine; PCP Internal Medicine
DX: R20.2 Paresthesia of skin (principal); J45.909 Unspecified asthma, uncomplicated; Z79.899 Other long term (current) drug therapy
CPT/HCPCS: 36415; 70496; 70498; 70551; 80053; 84702; 85025; 96361; 96374; 96375; 99284; 99285; J1200; J2405; J2765; Q9967

== ENCOUNTER → 2024-05-25 07:04 | Outpatient (BNV) | payer OTHER, SELFPAY | PROVIDERS: Emergency Provider Emergency Medicine; PCP Internal Medicine; Visit Provider Radiology Diagnostic Radiology | DX: R20.2 Paresthesia of skin (principal) | CPT/HCPCS: 70496; 70498; 70551 ==

== ENCOUNTER 2024-09-07 10:14 | Outpatient (AMB) | payer OTHER, SELFPAY ==
[2024-09-07 10:16] VITALS: BP 118/84; BMI 28.9
--- NOTE | 2024-09-07 10:16 | A.OFFVIS_ITS ---
Vital Signs 09/07/24 10:16 Height 5 ft 3 in Weight 163 lb BMI 28.9 BP 118/84 Blood Pressure Location Rt brachial Position Sitting Intake Visit Reasons: INP-Paresthesia of skin Intake Note: referred inhouse by Dr. Henry for parasthesia of skin Allergies Seasonal Allergies Allergy (Intermediate, Verified 09/07/24 10:18) Itching environmental allergies Allergy (Mild, Verified 09/07/24 10:18) itchy eyes, runny nose metronidazole [Flagyl] Adverse Reaction (Intermediate, Verified 09/07/24 10:18) stomach upset paroxetine [Paxil] Adverse Reaction (Intermediate, Verified 09/07/24 10:18) vomiting clarithromycin [From Biaxin] Adverse Reaction (Mild, Verified 09/07/24 10:18) Headache lactose [Lactose] Adverse Reaction (Mild, Verified 09/07/24 10:18) cramping, vomiting Medication List - Last Reconciled 09/07/24 by Eun Salazar MD lamotrigine (Lamictal) 25 mg PO DAILY lorazepam 0.5 mg PO BEDTIME PRN mirtazapine 15 mg PO DAILY prochlorperazine maleate (Compazine) 5 mg PO TID PRN 30 days trazodone 50 - 150 mg PO BEDTIME PRN HPI Comments Details: 33y/o Right handed female with h/o restless legs sydnrome, migraines and carpal tunnel syndrome comes for increased paresthesias in her hands. she was seeing in the past. she was diagnosed with carpal tunnel syndrome about 6 years ago - R>L.she feels her paresthesias , numbness an dpain ahs worsened. she wake sup at night with pain and a numbness, Carrying anything in her Right hand can trigger symptoms. she has trouble writing or doing any activity with her right hand. she had EMG many years ago and has using braces regularly.she denies any shoot ing pains form the neck. she also reports migraines for atleats 5 years. she has family h/o migraines. The pain is usually whole head and retroauricular region , posterior neck on the right. The headaches are pounding .she has some nausea.she had visual aura once when headaches are severe. Not sure if she has photophobia or phonophobia she takes 2 extra strength tylenol and it helps. it can last 3-4 hrs. she has 3- 4 migraines per week.she used to be on amitriptyline - but ran out of prescriptions. she used to have severe restless legs with leg movements - now it is fairly controlled.she used to be on pramiipexole. [facility] Medical History (Updated 09/07/24 @ 10:49 by Eun Salazar MD) Migraine Numbness and tingling in both hands IUD (intrauterine device) in place Abnormal Pap smear of vagina Multinodular thyroid Hematuria Thyroid nodule Mild asthma Otitis SILVIA (generalized anxiety disorder) Hyperthyroidism Low TSH level Hair loss Strep sore throat Overweight (BMI 25.0-29.9) Fibromyalgia Restless leg syndrome GERD (gastroesophageal reflux disease) IBS (irritable bowel syndrome) Depression Anxiety delivery delivered Surgical History History of delivery H/O laparoscopy [place] teeth extracted Hx of tonsillectomy Family History Father Kidney failure Heart disease Colon polyps Bipolar 1 disorder Hypertension CVD (cardiovascular disease) Chronic mental illness Substance use disorder Pancreatitis Mother Seizure Depression Anxiety Maternal Grandmother Hemorrhagic stroke History of multiple strokes Maternal Grandfather Cancer Family/Other Breast cancer Family/Other Colon cancer Social History Household Members: Family Housing: Apartment Alcohol intake: never Patient Tobacco Use Status: Never used Tobacco e-Cigarette/Vaping Use: Never Used Second Hand Smoke Exposure: No service: No Current occupational status: employed Sexual orientation: Straight/Heterosexual Gender identity: Female Cognitive needs: No Hearing needs: No Vision needs: Yes Female Reproductive History Menstrual Age of Menarche: 10 Physical Exam Vital Signs: Last Vital Signs BP 118/84 09/07/24 10:16 BMI result Body Mass Index 28.9 Const General: cooperative, healthy appearing, comfortable and no acute distress Nutritional Appearance: average body habitus Orientation/consciousness: patient oriented x3 Eyes Pupils: Equal, round and reactive pupils present Neuro General: patient oriented x3, gait normal, tone normal, moves all extremities and no focal motor deficits Cranial nerves: Yes Equal, round and reactive pupils present, Yes Bilaterally intact EOM present, Yes Nystagmus not present, Yes Normal facial strength present, Yes Midline tongue present, Yes Symmetric palate elevation present and Yes Ability to bilaterally elevate shoulders present Cognition (Neuro): normal cognition Gait exam (Neuro): Normal gait present Motor exam (neuro): 5/5 motor strength present throughout and Normal motor muscle tone present throughout Deep tendon reflexes (DTR's): Right triceps reflex intensity grade: 2+, Left triceps reflex intensity grade: 2+, Rt Biceps (C5, C6): 2+, Left biceps reflex intensity grade: 2+, Right brachioradialis reflex intensity grade: 2+, Left brachioradialis reflex intensity grade: 2+, Right patellar reflex intensity grade: 2+ and Left patellar reflex intensity grade: 2+ Coordination: [id number] test normal Assessment & Plan Assessment & Plan (1) Numbness and tingling in both hands: Code(s): R20.0 - Anesthesia of skin; R20.2 - Paresthesia of skin Category: Medical (2) Migraine: Code(s): G43.909 - Migraine, unspecified, not intractable, without status migrainosus Category: Medical Qualifiers: Migraine type: migraine (< 15 days per month) with aura Status migrainosus presence: without status migrainosus Intractability: not intractable Qualified Code(s): G43.109 - Migraine with aura, not intractable, without status migrainosus Plan EMG NCS - for eval of numbness and consider ref to Hand surgery Continue using wrist splints I will trial her on amitriptyline 25 mg qhs Magnesium 400mg qhs Start Vit B 2 400mg qam Restless legs is stable- will monitor Orders: Orders NE nerve conduction velocity Today R20.0 - Anesthesia of skin, R20.2 - Paresthesia of skin NE electromyogram (EMG) Today R20.0 - Anesthesia of skin, R20.2 - Paresthesia of skin Medications: New amitriptyline 25 mg PO BEDTIME 30 tabs 3RF magnesium oxide 400 mg PO BEDTIME 30 caps 6RF Coding Level of Care Code New Pt Level 4 (77788) Complex EM visit Add On G2211 Diagnoses Numbness and tingling in both hands R20.0; R20.2 Migraine with aura and without status migrainosus, not intractable G43.109 Migraine type: migraine (< 15 days per month) with aura Status migrainosus presence: without status migrainosus Intractability: not intractable
--- OUTSIDE RECORDS SUMMARY | 2024-09-07 11:33 | XMS_ITS | Patient Health Record ---
Author Organization [facility] Address [address] [place] [address] Care Team Providers Care Pourer Name Role Phone Jammie Castle Primary Care Provider Vineet Varela Jr Unavailable Allergies Allergen (clinical drug ingredient) Drug/Non Drug Allergy documented on EMR Reaction Allergy Type Onset Date Status paroxetine Paxil Unknown Drug Allergy Active Biaxin Unknown Drug Allergy Active Reason For Referral No Information Medications Medication SIG (Take, Route, Frequency, Duration) Notes Start Date End Date Status Amitriptyline HCl 25 MG 1 tablet Orally Once a day Active Zantac 300 MG 1 tablet at bedtime Orally Once a day for 30 day(s) 07/01/2017 Active Pantoprazole Sodium 40 MG 1 tablet Orall y Once a day for 30 Active rOPINIRole HCl 2 MG 1 tablet Orally Once a day Active Topamax 50 MG 1/2 tablet Orally prn Active LORazepam 0.5 MG 1 tablet as needed O rally every 6 hrs Active ZyrTEC Allergy 10 MG 1 tablet Orally Once a day Active Problems Problem Type SNOMED Code ICD Code Onset Dates Problem Status W/U Status Risk Notes Problem 160330045 Periumbilical pa in (R10.33) Active confirmed Problem 55248330 Irritable bowel syndrome without diarrhea (K58.9) Active confirmed Problem 630163664 Nausea (R11.0) Active confirmed Problem 124206681 Gastroesophageal reflux disease without esophagitis (K21.9) Active confirmed Plan Of Treatment Future Test Test Name Order Date UPPER GI ENDOSCOPY 12/27/2015 Insurance Providers Payer Name Payer Address Payer Phone Subscriber Number Group Number Insured Name Patient Relationship to Insured Coverage Start Date Coverage End Date [employer] Plan [address] [address] [place], [place] [id number] [phone] [id number] CHRISTIANO WOODWARD Self - patient is the insured [place] [address] [place] [address] [phone] [id number] CHRISTIANO WOODWARD Self - patient is the insured Medical (General) History Medical History History ICD Code history of abdominal pain reflux asthma allergies bipolar disorder anxiety depression Denies NE,DM,CVA,renal disease endometriosis Surgical History Surgery Date(Month/Year) tonsillectomy wisdom teeth extraction laporscopic surgery for endometreosis
== END 2024-09-07 10:57 | disposition home or self-care (01) ==
LOC: HO.HSMS 10:14
PROVIDERS: PCP Internal Medicine; Visit Provider Psychiatry & Neurology Neurology
DX: R20.0 Anesthesia of skin (principal); R20.2 Paresthesia of skin; G43.109 Migraine with aura, not intractable, without status migrainosus
CPT/HCPCS: 99204; G2211

== ENCOUNTER → 2024-09-07 10:14 | Outpatient (BNVA) | payer OTHER, SELFPAY | PROVIDERS: PCP Internal Medicine; Visit Provider Psychiatry & Neurology Neurology | DX: R20.0 Anesthesia of skin (principal); R20.2 Paresthesia of skin; G43.109 Migraine with aura, not intractable, without status migrainosus | CPT/HCPCS: 99202 ==

== ENCOUNTER 2024-10-18 10:53 | Outpatient (AMB) | payer OTHER, SELFPAY ==
[2024-10-18 11:19] VITALS: BP 108/60; PULSE 92; TEMP 36.9; O2SAT 98; BMI 28.5
--- NOTE | 2024-10-18 11:19 | AM.OFFWIN_ITS ---
Intake Vital Signs 10/18/24 11:19 Height 5 ft 3 in Weight 161 lb BMI 28.5 BP 108/60 Blood Pressure Location Lt brachial Position Sitting Pulse 92 Pulse Source Pulse Oximeter Temp 98.5 F Temp Source Oral Pulse Oximetry (%) 98 Oxygen Delivery Method Room Air Intake Visit Reasons: EP-sore throat Patient Tobacco Use Status: Never used Tobacco Manager Personnel Selection Required: No Is last menstrual period known: No Post menopausal: No Patient : No Allergies Seasonal Allergies Allergy (Intermediate, Verified 10/18/24 11:38) Itching environmental allergies Allergy (Mild, Verified 10/18/24 11:38) itchy eyes, runny nose metronidazole (Flagyl) Adverse Reaction (Intermediate, Verified 10/18/24 11:38) stomach upset paroxetine (Paxil) Adverse Reaction (Intermediate, Verified 10/18/24 11:38) vomiting clarithromycin (From Biaxin) Adverse Reaction (Mild, Verified 10/18/24 11:38) Headache lactose (Lactose) Adverse Reaction (Mild, Verified 10/18/24 11:38) cramping, vomiting Medication List - Last Reconciled 10/18/24 by Pina Jeronimo PHOTOGRAPHER'S MODEL- amitriptyline 25 mg PO BEDTIME lamotrigine (Lamictal) 25 mg PO DAILY lorazepam 0.5 mg PO BEDTIME PRN magnesium oxide 400 mg PO BEDTIME mirtazapine 15 mg PO DAILY prochlorperazine maleate (Compazine) 5 mg PO TID PRN 30 days trazodone 50 - 150 mg PO BEDTIME PRN Do you need a note to return to daycare/school/sports/work: No HPI HPI Comments History of Present Illness Details History - The patient is a 33-year-old female pr esenting with sore throat. - Sore throat onset was two weeks ago - No fever, chills, cough, or runny nose reported. - Reports postnasal drip contributing to throat irritation. Review of Systems - ENT: Reports sore throat. Denies runny nose. - Constitutional: Denies fever, chills. - Respiratory: Denies cough. - Gastrointestinal: Reports nausea. - Genitourinary: Reports urinary urgency . Physical Exam General: Awake, alert. No apparent distress Eyes: Sclera and conjunctiva clear bilaterally Nose: Nares patent, turbinates pale and edematous, no sinus tenderness with palpation bilaterally Ears: Tympanic membranes intact, congestion bilat, EAC clear bilat Throat: Moist mucosa membrane, pharynx within normal limits, no AC adenopathy Cardiovascular: Regular rate and rhythm Respiratory: Clear to auscultation bilaterally Results - Tests: Strep test was negative Discussion Notes During the visit, I discussed the diagnosis of allergic rhinitis causing postnasal drip, which is likely responsible for the patient's sore throat. I explained that while her sore throat tests were negative for strep, chronic allergies are contributing significantly to her symptoms. I reviewed the treatment plan which includes a nasal spray and oral antihistamine to alleviate the symptoms. We also discussed using Tylenol for throat discomfort until the medications take effect. I advised the patient regarding the cyclic nature of allergies and stressed the importance of starting the prescribed medications immediately. Follow-up recommendations include using the medications consistently for a few weeks to manage environmental allergy fluctuations. I emphasized supportive care and encouraged her to reach out if symptoms worsen or do not improve with treatment. Assessment and Plan 1. Allergic Pharyngitis - Monitor symptoms, no antibiotics requi red due to negative strep test. - Attributed to postnasal drip from yvan rgies. 2. Allergic Rhinitis - Nasal spray: twice daily. - Oral antihistamine initiated. - Advised consistent medication use for allergy management. Patient Instructions - Use the nasal spray in each nostril on ce in the morning and at night. - Take the allergy pill as instructed an d continue consistently for best results. - You can take Tylenol if your sore thro at hurts. - Start using prescribed medications tod ay. - Keep track of symptoms for a few weeks , as they should improve with treatment. - Stay aware of any changes in your symp toms and reach out if they worsen or do not improve. Consent Patient was informed and verbally consented to the use of an ambient scribe for clinic note documentation during this visit. [facility] Medical History (Updated 10/18/24 @ 11:54 by SHAN Yo) Abnormal Pap smear of vagina Anxiety delivery delivered Depression Fibromyalgia SILVIA (generalized anxiety disorder) GERD (gastroesophageal reflux disease) Hair loss Hematuria Hyperthyroidism IBS (irritable bowel syndrome) IUD (intrauterine device) in place Low TSH level Migraine Mild asthma Multinodular thyroid Numbness and tingling in both hands Otitis Overweight (BMI 25.0-29.9) Restless leg syndrome Strep sore throat Thyroid nodule Surgical History H/O laparoscopy History of delivery Hx of tonsillectomy [place] teeth extracted Family History Father Kidney failure Heart disease Colon polyps Bipolar 1 disorder Hypertension CVD (cardiovascular disease) Chronic mental illness Substance use disorder Pancreatitis Mother Seizure Depression Anxiety Maternal Grandmother Hemorrhagic stroke History of multiple strokes Maternal Grandfather Cancer Family/Other Breast cancer Family/Other Colon cancer Social History Household Members: Family Housing: Apartment Alcohol intake: never Patient Tobacco Use Status: Never used Tobacco e-Cigarette/Vaping Use: Never Used Second Hand Smoke Exposure: No Patient : No service: No Current occupational status: employed Sexual orientation: Straight/Heterosexual Gender identity: Female Cognitive needs: No Hearing needs: No Vision needs: Yes Female Reproductive History Menstrual Age of Menarche: 10 Physical Exam Vital Signs: Last Vital Signs Temp 98.5 F 10/18/24 11:19 Pulse 92 10/18/24 11:19 BP 108/60 10/18/24 11:19 Pulse Ox 98 10/18/24 11:19 Oxygen Delivery Method Room Air 10/18/24 11:19 BMI result Body Mass Index 28.5 Assessment & Plan Assessment & Plan (1) Allergic pharyngitis: Code(s): J02.9 - Acute pharyngitis, unspecified (2) Environmental allergies: Code(s): Z91.09 - Other allergy status, other than to drugs and biological substances Plan . Medications: New fluticasone propionate 50 mcg/actuation administer into each nostril 1 spray intranasal BID 16 grams 12RF cetirizine (Zyrtec) 10 mg PO DAILY 90 tabs 2RF Coding Level of Care Code Est Pt Level 4 (69882) Diagnoses Allergic pharyngitis J02.9 Environmental allergies Z91.09
--- OUTSIDE RECORDS SUMMARY | 2024-10-18 12:08 | XMS_ITS | Patient Health Record ---
Author Organization [facility] Address [address] [place] [address] Care Team Providers Care Inpatient Auditor Name Role Phone Jammie Castle Primary Care [...] Problem Status W/U Status Risk Notes Problem [id number] Periumbilical pa in (R10.33) Active confirmed Problem 53954531 Irritable bowel syndrome without diarrhea (K58.9) Active confirmed Problem 514163495 Nausea (R11.0) Active confirmed Problem [id number] Gastroesophageal reflux disease without esophagitis (K21.9) Active confirmed Plan Of Treatment Future Test Test Name Order Date UPPER GI ENDOSCOPY 12/27/2015 Insurance Providers Payer Name Payer Address Payer Phone Subscriber Number Group Number Insured Name Patient Relationship to Insured Coverage Start Date Coverage End Date [employer] Plan [address] [address] [place], [place] [id number] [phone] [id number] CHRISTIANO WOODWARD Self - patient is the insured [place] [address] [place] [id number] [phone] [id number] CHRISTIANO WOODWARD Self - patient is the insured Medical (General) History Medical History History ICD Code history of abdominal pain reflux asthma allergies bipolar disorder anxiety depression Denies [place],DM,CVA,renal disease endometriosis Surgical History Surgery Date(Month/Year) tonsillectomy wisdom teeth extraction laporscopic surgery for endometreosis
== END 2024-10-18 11:58 | disposition home or self-care (01) ==
PROVIDERS: PCP Internal Medicine; Visit Provider Nurse Practitioner Family
DX: J02.9 Acute pharyngitis, unspecified (principal); Z91.09 Other allergy status, other than to drugs and biological substances

== ENCOUNTER → 2024-10-18 10:53 | Outpatient (BNVA) | payer OTHER, SELFPAY | PROVIDERS: PCP Internal Medicine; Visit Provider Nurse Practitioner Family | DX: K21.9 Gastro-esophageal reflux disease without esophagitis (principal); J30.9 Allergic rhinitis, unspecified; Z91.09 Other allergy status, other than to drugs and biological substances | CPT/HCPCS: 99212 ==

== ENCOUNTER 2024-10-19 14:50 | Outpatient (REF) | payer OTHER, SELFPAY ==
--- NOTE | 2024-10-19 14:53 | EMG_ITS ---
Chief complaint: Bilateral hand numbness. Patient reports having test EMG by Dr. Romero that showed Carpal Tunnel Syndrome. Reason for referral: Evaluate for Carpal Tunnel Syndrome Referred by: Dr. Salazar Procedure done: Bilateral upper extremities NCS/EMG Precautions and/or limitations: None The limb temperature was monitored continuously and remained between 32-36 degrees C during the performance of the NCS. Nerve Conduction Studies Anti Sensory Summary Table ?Stim Site NR Onset (ms) Norm Onset (ms) Peak (ms) Norm Peak (ms) O-P Amp (?V) Norm O-P Amp Site1 Site2 Delta-0 (ms) Dist (cm) Grye (m/s) Norm Grey (m/s) Left Median Anti Sensory (2nd Digit) Wrist ? 3.1 4.0 <3.6 12.3 >10 Wrist 2nd Digit 3.1 14.0 45 Right Median Anti Sensory (2nd Digit) Wrist NR <3.6 >10 Wrist 2nd Digit 14.0 Right Radial Anti Sensory (Thumb) Forearm ? 1.7 2.2 <3.1 38.8 Forearm Thumb 1.7 0.0 Left Ulnar Anti Sensory (5th Digit) Wrist ? 2.3 2.9 <3.7 22.2 >15.0 Wrist 5th Digit 2.3 14.0 61 Right Ulnar Anti Sensory (5th Digit) Wrist ? 2.1 2.9 <3.7 27.7 >15.0 Wrist 5th Digit 2.1 14.0 67 Motor Summary Table ?Stim Site NR Onset (ms) Norm Onset (ms) O-P Amp (mV) Norm O-P Amp iAmp (mV) Amp (1st) (%) Site1 Site2 Delta-0 (ms) Dist (cm) Grey (m/s) Norm Grey (m/s) Left Median Motor (Abd Poll Brev) Wrist ? 4.4 <3.9 7.5 >4.5 9.0 100.0 Elbow Wrist 3.3 17.0 52 >45 Elbow ? 7.7 8.0 9.6 106.7 Right Median Motor (Abd Poll Brev) Wrist ? 4.1 <3.9 1.5 >4.5 2.0 100.0 Elbow Wrist 3.3 17.0 52 >45 Elbow ? 7.4 1.3 1.5 86.7 Left Ulnar Motor (Abd Dig Minimi) Wrist ? 2.3 <3.0 9.4 >5 11.6 100.0 B Elbow Wrist 2.7 16.5 61 >45 B Elbow ? 5.0 8.6 11.0 91.5 A Elbow B Elbow 1.1 10.0 91 >45 A Elbow ? 6.1 8.4 10.8 89.4 Right Ulnar Motor (Abd Dig Minimi) Wrist ? 2.3 <3.0 7.8 >5 9.4 100.0 B Elbow Wrist 2.8 16.5 59 >45 B Elbow ? 5.1 7.6 9.1 97.4 A Elbow B Elbow 1.1 10.0 91 >45 A Elbow ? 6.2 7.4 8.9 94.9 EMG ?Side Muscle Nerve Root Ins Act Fibs Psw Amp Dur Poly Recrt Int Pat Comment Right 1stDorInt Ulnar C8-T1 Nml Nml Nml Nml Nml 0 Nml Complete Right FlexCarRad Median C6-7 Nml Nml Nml Nml Nml 0 Nml Complete Right Biceps Musculocut C5-6 Nml Nml Nml Nml Nml 0 Nml Complete Right Triceps Radial C6-7-8 Nml Nml Nml Nml Nml 0 Nml Complete Right Deltoid Axillary C5-6 Nml Nml Nml Nml Nml 0 Nml Complete Left 1stDorInt Ulnar C8-T1 Nml Nml Nml Nml Nml 0 Nml Complete Left FlexCarRad Median C6-7 Nml Nml Nml Nml Nml 0 Nml Complete Left Biceps Musculocut C5-6 Nml Nml Nml Nml Nml 0 Nml Complete Left Triceps Radial C6-7-8 Nml Nml Nml Nml Nml 0 Nml Complete Left Deltoid Axillary C5-6 Nml Nml Nml Nml Nml 0 Nml Complete FINDINGS: Bilateral median motor nerves showed prolonged distal latency, small amplitude and normal conduction velocity. Left median sensory nerve showed prolonged peak latency. Right median sensory nerves showed absent response. All other nerves tested were within normal. Concentric needle EMG was performed in selected muscles of the bilateral upper extremities. Study did not reveal signs of electric abnormalities as shown in the table above. IMPRESSION: 1. This is an abnormal study. 2. There is electrodiagnostic evidence for bilateral moderate-severe median neuropathy at the wrist, consistent with carpal tunnel syndrome. Right worse than left. 3. There is no electrodiagnostic evidence for ulnar neuropathy, brachial plexopathy, or cervical radiculopathy. Thank you for your kind referral. Mitzy Darby MD, VIOLETTA Board Certified, [place] Board [employer] and [employer] (ABPMR) Board Certified, [place] Board of Electrodiagnostic Medicine (ABEM) CODIN [phone] x 2 MTDD
== END 2024-10-19 14:51 | disposition home or self-care (01) ==
LOC: HO.NEURO 14:50
PROVIDERS: PCP Internal Medicine; Visit Provider Psychiatry & Neurology Neurology
DX: R20.0 Anesthesia of skin (principal); R20.2 Paresthesia of skin; R94.131 Abnormal electromyogram [EMG]
CPT/HCPCS: 95886; 95911

== ENCOUNTER → 2024-10-19 14:53 | Outpatient (BNV) | payer OTHER, SELFPAY | PROVIDERS: PCP Internal Medicine; Visit Provider Physical Medicine & Rehabilitation | DX: G56.03 Carpal tunnel syndrome, bilateral upper limbs (principal) | CPT/HCPCS: 95886; 95911 ==

== ENCOUNTER 2024-10-25 14:27 | Outpatient (AMB) | payer OTHER, SELFPAY ==
--- NOTE | 2024-10-25 14:30 | MHC.PC.OV ---
Vital Signs 10/25/24 14:31 Height 5 ft 3 in Weight 160 lb BMI 28.3 BP 100/60 Blood Pressure Location Lt brachial Position Sitting Pulse 90 Pulse Source Pulse Oximeter Temp 97.1 F Temp Source Temporal Artery Scan Pulse Oximetry (%) 97 Oxygen Delivery Method Room Air Intake Visit Reasons: Pain in neck and constant urinating Intake Note: Patient is here to follow up on Neck pain on left side and constant urination (no other symptoms) Automatic Lehr Operator Required: No Caramel Candy Maker: Not Required per policy Accompanied by: Self / Same As Patient Allergies Seasonal Allergies Allergy (Intermediate, Verified 10/25/24 14:58) Itching environmental allergies Allergy (Mild, Verified 10/25/24 14:58) itchy eyes, runny nose metronidazole (Flagyl) Adverse Reaction (Intermediate, Verified 10/25/24 14:58) stomach upset paroxetine (Paxil) Adverse Reaction (Intermediate, Verified 10/25/24 14:58) vomiting clarithromycin (From Biaxin) Adverse Reaction (Mild, Verified 10/25/24 14:58) Headache lactose (Lactose) Adverse Reaction (Mild, Verified 10/25/24 14:58) cramping, vomiting Medication List - Last Reconciled 10/25/24 by Gonzalo Chakraborty PA-C amitriptyline 25 mg PO BEDTIME cetirizine (Zyrtec) 10 mg PO DAILY fluticasone propionate 50 mcg/actuation 1 spray intranasal BID lamotrigine (Lamictal) 25 mg PO DAILY lorazepam 0.5 mg PO BEDTIME PRN magnesium oxide 400 mg PO BEDTIME mirtazapine 15 mg PO DAILY prochlorperazine maleate (Compazine) 5 mg PO TID PRN 30 days trazodone 50 - 150 mg PO BEDTIME PRN Tobacco use date assessed: 10/25/24 Dental Screening Dental Screen Date: 05/03/24 HPI Pain in neck and constant urinating HPI Details The patient is a 33-year-old female presenting with urinary frequency and neck pain. The urinary frequency has been persistent for several months, with the patient experiencing a constant urge to urinate even after voiding. She reports that this issue has been ongoing for a couple of years, with no associated bulge or prolapse symptoms. The neck pain is described as discomfort at the back of the neck, making it difficult to find a comfortable position when lying down. She has recently seen at urgent care for her throat pain and was tested for rapid strep though was negative. She continues on allergy medication. This pain has been present for a few weeks, coinciding with a sore throat that has persisted for three weeks. The patient has a history of anxiety and depression, for which she is under psychiatric care and medication management. [facility] Medical History (Updated 10/25/24 @ 15:10 by Gonzalo Chakraborty PA-C) Pharyngitis Migraine Numbness and tingling in both hands IUD (intrauterine device) in place Abnormal Pap smear of vagina Multinodular thyroid Hematuria Thyroid nodule Mild asthma Otitis SILVIA (generalized anxiety disorder) Hyperthyroidism Low TSH level Hair loss Strep sore throat Overweight (BMI 25.0-29.9) Fibromyalgia Restless leg syndrome GERD (gastroesophageal reflux disease) IBS (irritable bowel syndrome) Depression Anxiety delivery delivered Surgical History History of delivery H/O laparoscopy [place] teeth extracted Hx of tonsillectomy Family History Father Kidney failure Heart disease Colon polyps Bipolar 1 disorder Hypertension CVD (cardiovascular disease) Chronic mental illness Substance use disorder Pancreatitis Mother Seizure Depression Anxiety Maternal Grandmother Hemorrhagic stroke History of multiple strokes Maternal Grandfather Cancer Family/Other Breast cancer Family/Other Colon cancer Social History Household Members: Family Housing: Apartment Alcohol intake: never Patient Tobacco Use Status: Never used Tobacco e-Cigarette/Vaping Use: Never Used Second Hand Smoke Exposure: No service: No Current occupational status: employed Sexual orientation: Straight/Heterosexual Gender identity: Female Cognitive needs: No Hearing needs: No Vision needs: Yes Female Reproductive History Menstrual Age of Menarche: 10 Questionnaire Thrive Questionnaire Date Thrive assessed: 05/03/24 I am a: Patient What is your living situation today?: I have a steady place to live Within the past 12 months, did the food you bought not last and you didn't have the money to get more?: Never true Within the past 12 months, did you worry whether your food would run out before you got money to buy more?: Never true Do you have trouble paying for medicines?: No Do you have trouble getting transportation to medical appointments?: No Do you have trouble paying your heating and electricity bill?: No Do you have trouble taking care of your child, family member or friend?: No Do you have trouble with day-to-day activities such as bathing, preparing meals, shopping, managing finances, etc.?: No Are you currently unemployed and looking for a job?: No Are you interested in more education?: No Please select the resources that you would like help with: None Currently or been in a relationship where the following occur: No concerns reported THRIVE Score: 0 SILVIA-7 AMB Questionnaire SILVIA-7 Date SILVIA - 7 assessed: 05/03/24 Source: Developed by Drs. Braeden Maldonado, Carmencita Dukes, Sergei Escobar and colleagues, with an educational matias from [id number]. Review of Systems Const Denies headache(s) Eyes Denies loss of vision ENT Denies vertigo, Denies dizziness, Denies headache(s) and Denies sore throat Card Denies chest pain, Denies leg edema and Denies lightheadedness Resp Denies cough, Denies hemoptysis and Denies wheezing GI Denies abdominal pain, Denies melena, Denies constipation, Denies diarrhea and Denies vomiting Details: + urinary frequency Denies urinary frequency, Denies dysuria and Reports urinary urgency Musc Denies arthralgias, Denies joint swelling, Denies numbness and Denies tingling Neuro Denies Abnormal speech present, Denies behavioral changes, Denies vertigo, Denies dizziness, Denies headache(s), Denies loss of vision, Denies memory loss, Denies numbness and Denies tingling Psych Denies anxiety, Denies behavioral changes, Denies depression, Denies memory loss and Denies panic attacks Juan/Lymph Denies easy bleeding and Denies easy bruising Aller/Immun Denies wheezing Physical exam (Primary Care) Vital Signs: Last Vital Signs Temp 97.1 F 10/25/24 14:31 Pulse 90 10/25/24 14:31 BP 100/60 10/25/24 14:31 Pulse Ox 97 10/25/24 14:31 Oxygen Delivery Method Room Air 10/25/24 14:31 BMI result Body Mass Index 28.3 Tobacco/Smoking Status: Tobacco use Status Tobacco use date assessed 10/25/24 10/25/24 14:35 Patient Tobacco Use Status Never used Tobacco 10/25/24 14:35 e-Cigarette/Vaping Use Never Used 10/25/24 14:35 Thrive Assessment: Date of Thrive Assessment Date Thrive assessed 05/03/24 10/25/24 14:35 Currently or been in a relationship where the following occur: No concerns reported Const General: healthy appearing, no acute distress, alert and awake Nutritional Appearance: well nourished Orientation/consciousness: oriented to person, oriented to place and oriented to time HENMT Ears: TM's normal bilaterally General nose exam: Normal nasal mucous membranes and turbinates present Eyes Conjunctivae: conjunctivae normal Sclerae: sclerae normal Pupils: Equal, round and reactive pupils present Neck Other: NOTED SOME SMALL PALPABLE ANTERIOR CERVICAL LYMPHADENOPATHY Neck: Yes no JVD Thyroid: Thyroid normal Carotids: no bruits Resp Effort & Inspection: normal respiratory effort and not tachypneic Auscultation: no crackles, no rales, no rhonchi and no wheezes Cardio Rate: regular rate Rhythm: regular rhythm Heart sounds: no murmurs and normal S1 and S2 GI Palpation (GI): Soft to palpation, nontender, no hepatomegaly and no splenomegaly Auscultation: normal bowel sounds Skin General skin exam: no rashes or lesions noted and dry skin Neuro General: oriented to person, oriented to place and oriented to time Cranial nerves: Yes Equal, round and reactive pupils present Speech: No Abnormal speech present Gait exam (Neuro): Normal gait present Motor exam (neuro): no tremor noted Extrem Right upper extremity: full ROM Left upper extremity: full ROM Right lower extremity: full ROM; no edema Left lower extremity: full ROM; no edema Psych Mental Status: mental status grossly normal Speech and movement: Normal speech and movement present Affect: normal affect Attitude: cooperative Thought process: Normal thought process present Coding Level of Care Code Est Pt Level 4 (18883) Diagnoses Acute sinusitis, recurrence not specified, unspecified location J01.90 Recurrence: not specified as recurrent Sinusitis location: unspecified location Urinary frequency R35.0 Urinary retention R33.9 Assessment & Plan Assessment & Plan (1) Acute sinusitis: Code(s): J01.90 - Acute sinusitis, unspecified Category: Medical Qualifiers: Recurrence: not specified as recurrent Sinusitis location: unspecified location Qualified Code(s): J01.90 - Acute sinusitis, unspecified Plan: An antibiotic, amoxicillin, is prescribed to address the upper respiratory symptoms. (2) Urinary frequency: Code(s): R35.0 - Frequency of micturition Category: Medical Plan: A urinalysis and urine cytology will be conducted to check for infections or cancerous cells. An ultrasound of the bladder is planned to identify any structural abnormalities. A referral to a urologist is provided for further evaluation. Tamsulosin is prescribed to help with urinary symptoms. (3) Urinary retention: Code(s): R33.9 - Retention of urine, unspecified Category: Medical Plan: As above Orders: Orders US bladder 10/25/24 R35.0 - Frequency of micturition UA CC w/rflx Micro + Cult 10/25/24 R30.0 - Dysuria, R35.0 - Frequency of micturition Urine Cytology 10/25/24 R35.0 - Frequency of micturition Comprehensive Met. Panel 10/25/24 R35.0 - Frequency of micturition Complete Blood Count no Diff 10/25/24 R35.0 - Frequency of micturition Referrals Urology Referral R33.9 - Retention of urine, unspecified, R35.0 - Frequency of micturition Medications: New amoxicillin 875 mg PO BID 10 tabs 0RF 5 days J02.9 - Acute pharyngitis, unspecified tamsulosin 0.4 mg PO DAILY 15 caps 0RF 15 days R35.0 - Frequency of micturition
[2024-10-25 14:31] VITALS: BP 100/60; PULSE 90; TEMP 36.2; O2SAT 97; BMI 28.3
== END 2024-10-25 15:17 | disposition home or self-care (01) ==
LOC: HO.HMCH 14:28
PROVIDERS: PCP Internal Medicine; Visit Provider Physician Assistant
DX: J01.90 Acute sinusitis, unspecified (principal); R35.0 Frequency of micturition; R33.9 Retention of urine, unspecified

== ENCOUNTER → 2024-10-25 14:27 | Outpatient (BNVA) | payer OTHER, SELFPAY | PROVIDERS: PCP Internal Medicine; Visit Provider Physician Assistant | DX: J01.90 Acute sinusitis, unspecified (principal); R35.0 Frequency of micturition; R33.9 Retention of urine, unspecified; M54.2 Cervicalgia | CPT/HCPCS: 99212 ==

== ENCOUNTER 2024-10-26 14:21 | Outpatient (REF) | payer OTHER, SELFPAY ==
[2024-10-26 15:02] LABS: Hematocrit 37.3 % (37.0-47.0); Hemoglobin 13.3 g/dl (12.0-16.0); Mean Corpuscular HGB Conc 35.7 g/dl (31.0-35.0); Mean Corpuscular Hemoglobin 28.9 pg (27.0-33.0); Mean Corpuscular Volume 81.1 fL (80.0-98.0); NRBC Abs Auto 0.000 X10*3/uL (0.0-0.012); NRBC Pct Auto 0.0 /100WBC (0.0-0.2); Platelet Count 320 X10*3/uL (160-400); Red Blood Count 4.60 X10*6/uL (4.20-5.50); White Blood Count 4.5 X10*3/uL (4.8-10.8)
--- OUTSIDE RECORDS SUMMARY | 2024-10-26 15:05 | XMS_ITS | Patient Health Record ---
Author Organization [facility] Address [address] [place] [address] Care Team Providers Care Kayak Maker Name Role Phone Jammie Castle Primary Care [...] Problem Status W/U Status Risk Notes Problem [id number] Periumbilical pa in (R10.33) Active confirmed Problem 89448978 Irritable bowel syndrome without diarrhea (K58.9) Active confirmed Problem 035188386 Nausea (R11.0) Active confirmed Problem 216382560 Gastroesophageal reflux disease without esophagitis (K21.9) Active confirmed Plan Of Treatment Future Test Test Name Order Date UPPER GI ENDOSCOPY 12/27/2015 Insurance Providers Payer Name Payer Address Payer Phone Subscriber Number Group Number Insured Name Patient Relationship to Insured Coverage Start Date Coverage End Date [employer] Plan [address] [address] [place], [place] [id number] [phone] [id number] CHRISTIANO WOODWARD Self - patient is the insured [place] [address] [place] [address] [phone] [id number] CHRISTIANO WOODWARD Self - patient is the insured Medical (General) History Medical History History ICD Code history of abdominal pain reflux asthma allergies bipolar disorder anxiety depression Denies [place],DM,CVA,renal disease endometriosis Surgical History Surgery Date(Month/Year) tonsillectomy wisdom teeth extraction laporscopic surgery for endometreosis
[2024-10-26 15:06] LABS: Appearance Urine Clear; Glucose Urine UA Negative (Negative); PH 5.5 (5.0-9.0); Specific Gravity - Urine >= 1.030 (1.005-1.025); UMIC TRIGGER UACC YES
[2024-10-26 15:51] LABS: Alanine Aminotransferase 12 U/L (0-31); Albumin Level 4.6 g/dL (3.5-5.0); Alkaline Phosphatase 83 U/L (39-117); Anion Gap 12 (12-20); Aspartate Amino Transferase 26 U/L (5-31); Blood Urea Nitrogen 7 mg/dL (9-16); Calcium 9.0 mg/dL (8.4-10.2); Carbon Dioxide 26 mmol/L (22-29); Chloride 108 mmol/L (96-108); Estimated Glomerular Filt Rate > 60; Potassium 3.2 mmol/L (3.3-5.1); Sodium 143 mmol/L (135-145); Total Protein 7.5 g/dL (6.5-8.0)
== END 2024-10-26 14:22 | disposition home or self-care (01) ==
LOC: HO.LAB 14:21
PROVIDERS: PCP Internal Medicine; Visit Provider Physician Assistant
DX: R30.0 Dysuria (principal); R35.0 Frequency of micturition
CPT/HCPCS: 36415; 80053; 81001; 81003; 85027; 88112

== ENCOUNTER 2024-12-12 09:47 | Outpatient (AMB) | payer OTHER, SELFPAY ==
--- NOTE | 2024-12-12 10:01 | A.OFFVIS_ITS ---
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 Patient reports numbness and tingling that occurs daily and constantly making it difficult to monitor worker, squeeze, and open and close lids. Patient shares it is worse at night. Denies finger locking. Has tried braces however she feels it worsens her symptoms. She takes Tylenol without relief. Denies any prior injuries or surgeries. 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 Patient reports numbness and tingling that occurs daily and constantly making it difficult to monitor worker, squeeze, and open and close lids. Patient reports constant numbness and tingling in the right hand, however numbness in the left hand as intermittent, daily, and worse at night. Patient shares it is worse at night. Denies finger locking. Has tried braces however she feels it worsens her symptoms. She takes Tylenol without relief. Denies any prior injuries or surgeries. [facility] Medical History (Updated 12/12/24 @ 13:30 by TAMIR Lamas) Pharyngitis Migraine Numbness and tingling in both hands IUD (intrauterine device) in place Abnormal Pap smear of vagina Multinodular thyroid Hematuria Thyroid nodule Mild asthma Otitis SILVIA (generalized anxiety disorder) Hyperthyroidism Low TSH level Hair loss Strep sore throat Overweight (BMI 25.0-29.9) Fibromyalgia Restless leg syndrome GERD (gastroesophageal reflux disease) IBS (irritable bowel syndrome) Depression Anxiety delivery delivered Surgical History History of delivery H/O laparoscopy [place] teeth extracted Hx of tonsillectomy Family History Father Kidney failure Heart disease Colon polyps Bipolar 1 disorder Hypertension CVD (cardiovascular disease) Chronic mental illness Substance use disorder Pancreatitis Mother Seizure Depression Anxiety Maternal Grandmother Hemorrhagic stroke History of multiple strokes Maternal Grandfather Cancer Family/Other Breast cancer Family/Other Colon cancer Social History (Updated 12/12/24 @ 10:03 by NOE Shepherd) Household Members: Family Housing: Apartment Alcohol intake: never Patient Tobacco Use Status: Never used Tobacco e-Cigarette/Vaping Use: Never Used Second Hand Smoke Exposure: No service: No Current occupational status: 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 Normal sensation to all other digits in the right hand today. Normal sensation in the tips of all digits of the left hand today. No thenar or intrinsic wasting. Good APB muscle firing and good finger cross. Vascular: Capillary refill brisk. ROM: Patient can make a fist and extend all their digits. Skin: No lacerations or abrasions noted. General: No ecchymosis. No erythema or evidence of infection. Results Reviewed Results Reviewed: IMPRESSION: 1. This is an abnormal study. 2. There is electrodiagnostic evidence for bilateral moderate-severe median neuropathy at the wrist, consistent with carpal tunnel syndrome. Right worse than left. 3. There is no electrodiagnostic evidence for ulnar neuropathy, brachial plexopathy, or cervical radiculopathy. Thank you for your kind referral. Mitzy Darby MD, VIOLETTA Assessment & Plan Assessment & Plan (1) Bilateral carpal tunnel syndrome: Code(s): G56.03 - Carpal tunnel syndrome, bilateral upper limbs Category: Medical Plan 1. Left carpal tunnel syndrome Symptoms intermittent, daily, worse at night I educated the patient about the condition. I discussed both operative and nonoperative treatment options. The patient would like to proceed with surgery. The risks and benefits of operative treatment were discussed with the patient and the patient wishes to proceed with surgery. These risks include, but are not limited to, risk of damage to blood vessels, nerves, tendons, infection, recurrence, incomplete relief of preoperative symptoms, persistent pain, possible need for further surgery, and the risks associated with regional blocks and/or anesthesia. Plan is to take the patient to the operating room at some point in the next few weeks for the following procedures: 1. Left carpal tunnel release under local anesthesia All of the preoperative paperwork including the consent was discussed today. All of the patient's questions were answered in the clinic today. The patient understands that they will be in contact with our surgical attendant to discuss scheduling their procedure. Patient denies diabetes, blood thinners, asthma, heart issues, lung issues, kidney issues, or current smoking. 2. Right carpal tunnel syndrome Symptoms constant, daily, worse at night Patient would like to proceed with operative intervention prior in the left prior to any intervention on the right, as after education that we have a better chance of getting normal sensation back with intermittent but daily numbness, patient would like to try for this 1st Patient is educated that at 2 week postoperative visit for her left carpal tunnel release, if she is feeling well, we can get the right side signed up at that time Patient understands this and is amenable to this plan Coding Level of Care Code New Pt Level 4 (95064) Diagnoses Bilateral carpal tunnel syndrome G56.03
[2024-12-12 10:02] VITALS: BMI 28.3
--- OUTSIDE RECORDS SUMMARY | 2024-12-12 12:03 | XMS_ITS | Clinical Summary ---
Author Organization [address] Building Address [address] [place] [phone] Phone Care Team Providers Care Facing Grinder Name Role Phone Jyoti Slater MD Primary Care Provider [phone] Encounters Date Type Department Care Team Description 11/17/2024 3:00 PM EDT Clinic Lab Collection Walk-In Clinic - [address] [phone] Pre-employment drug screening (Primary Dx) from Last 3 Months Social History Tobacco Use Types Packs/Day Years Used Date Smoking Tobacco: Never Assessed Comments Unknown Sex and Gender Information Value Date Recorded Sex Assigned at Not on file Legal Sex Female 12:54 AM EST Gender Identity Not on file Sexual Orientation Not on file Plan of Treatment Health Maintenance Due Date Last Done Comments Hepatitis B Vaccines (1 of 3 - 19+ 3-dose series) 12/18/2007 Cervical Cancer Screening: Pap Smear 2009 Pneumococcal Vaccine: Pediatrics (0 to 5 Years) and At-Risk Patients (6 to 49 Years) (2 of 2 - PCV) 02/14/2014 02/14/2013 Depression Screening 03/30/2024 HIV Screening 11/17/2024 Hepatitis C Screening 11/17/2024 Social Influencers of Health Screening 11/17/2024 COVID-19 Vaccine ( season) 2024 Influenza Vaccine (#1) 2024 , 02/23/2023, 01/09/2022, Additional history exists DTaP,Tdap,and Td Vaccines (4 - Td or Tdap) 12/28/2028 12/28/2018, 03/04/2017, 01/02/2016 HIB Vaccines Aged Out No longer eligi ble based on patient's age to complete this topic HPV Vaccines Aged Out No longer eligi ble based on patient's age to complete this topic Hepatitis A Vaccines Aged Out No long er eligible based on patient's age to complete this topic IPV Vaccines Aged Out No longer eligi ble based on patient's age to complete this topic MMR Vaccines Aged Out No longer eligi ble based on patient's age to complete this topic Meningococcal ACWY Vaccine Aged Out N o longer eligible based on patient's age to complete this topic Meningococcal B Vaccine Aged Out No l onger eligible based on patient's age to complete this topic RSV Immunization Patients Under 20 months Aged Out No longer eligible based on patient's age to complete this topic Varicella Vaccines Aged Out No longer eligible based on patient's age to complete this topic Procedures Procedure Name Priority Date/Time Associated Diagnosis Comments POC URINE DRUG SCREEN Routine 11/17/2024 3:58 PM EDT Pre-employment drug screening from Last 3 Months Results * (ABNORMAL) POC Urine Drug Screen (11/17/2024 3:58 PM EDT) Amphetamine Screen, Ur POC Negative Negative Benzodiazepines, Ur POC Positive(A) Negative Cocaine, Ur POC Negative Negative Methamphetamine Screen, Ur POC Negative Negative Opiate Scrn, Ur POC Negative Negative THC, Ur POC Negative Negative Urine Urine specimen obtained by clean catch procedure / Unknown 11/17/2024 3:58 PM EDT Iban Avila MD POINT OF CARE TEST ENTER/EDIT OR DERABLES Final Result from Last 3 Months Insurance [employer] Care Teams Facing Grinder Relationship Specialty Start Date End Date Bryon, MD Jyoti [address] [place] [address] [address] [facility] [place] [address] PCP - General Internal Medicine 07/08/12
--- OUTSIDE RECORDS SUMMARY | 2024-12-12 12:03 | XMS_ITS | Patient Health Record ---
Author Organization [facility] Address [address] [place] [address] Care Team Providers Care Electroplater Name Role Phone Jammie Castle Primary Care Provider Vineet Varela Jr Unavailable [phone] Allergies Allergen (clinical drug ingredient) Drug/Non Drug [...] Problem Status W/U Status Risk Notes Problem [id number] Periumbilical pa in (R10.33) Active confirmed Problem 72357351 Irritable bowel syndrome without diarrhea (K58.9) Active confirmed Problem 955709144 Nausea (R11.0) Active confirmed Problem [id number] Gastroesophageal reflux disease without esophagitis (K21.9) Active confirmed Plan Of Treatment Future Test Test Name Order Date UPPER GI ENDOSCOPY 12/27/2015 Insurance Providers Payer Name Payer Address Payer Phone Subscriber Number Group Number Insured Name Patient Relationship to Insured Coverage Start Date Coverage End Date [employer] Plan [address] [address] [place], [place] [id number] [phone] [id number] CHRISTIANO WOODWARD Self - patient is the insured MED[place] [address] [place] [address] [phone] [id number] CHRISTIANO WOODWARD Self - patient is the insured Medical (General) History Medical History History ICD Code history of abdominal pain reflux asthma allergies bipolar disorder anxiety depression Denies HI,DM,CVA,renal disease endometriosis Surgical History Surgery Date(Month/Year) tonsillectomy wisdom teeth extraction laporscopic surgery for endometreosis
== END 2024-12-12 10:53 | disposition home or self-care (01) ==
LOC: HO.HOS 09:47
PROVIDERS: PCP Internal Medicine
DX: G56.03 Carpal tunnel syndrome, bilateral upper limbs (principal)
CPT/HCPCS: 99204

== ENCOUNTER → 2024-12-12 09:47 | Outpatient (BNVA) | payer OTHER, SELFPAY | PROVIDERS: PCP Internal Medicine | DX: G56.03 Carpal tunnel syndrome, bilateral upper limbs (principal); R20.0 Anesthesia of skin; R20.2 Paresthesia of skin | CPT/HCPCS: 99202 ==

== ENCOUNTER 2024-12-14 15:32 | Outpatient (REF) | payer OTHER, SELFPAY ==
--- NOTE | ~2024-12-14 | US_ITS ---
EXAMINATION: US RETROPERITONEAL COMPLETE (RENAL) CLINICAL INFORMATION: Microscopic hematuria. COMPARISON: Ultrasound abdomen 07/07/2018 TECHNIQUE: Real-time imaging of the kidneys and bladder. FINDINGS: RIGHT KIDNEY: 11.2 x 3.7 x 4.0 cm (SAG x AP x TRV). The kidney is normal in size, contour, and echogenicity. Renal cortical thickness is normal. No calculi or focal parenchymal lesions . There is no hydronephrosis. LEFT KIDNEY: 10.9 x 4.6 x 3.3 cm (SAG x AP x TRV). The kidney is normal in size, contour, and echogenicity. Renal cortical thickness is normal. No calculi or focal parenchymal lesions. There is mild pelvic fullness. Was not visualized on previous exam 2018. BLADDER: Well distended and normal. Bilateral ureteral jets are demonstrated. Prevoid bladder volume is 273.4 mL. Postvoid bladder volume is 1.2 mL. US/US retroperitoneal comp IMPRESSION: Unremarkable kidneys except for mild pelvic fullness left kidney. Electronically signed by: Denny Rome MD 12/15/2024 07:03 AM EDT
--- OUTSIDE RECORDS SUMMARY | 2024-12-14 18:55 | XMS_ITS | Clinical Summary ---
Author Organization [address] Building Address [address] [place] [phone] Phone Care Team Providers Care Animal Rescuer Name Role Phone Jyoti Slater MD Primary Care Provider [phone] Encounters Date Type Department Care Team Description 11/17/2024 3:00 PM EDT Clinic Lab Collection Walk-In Clinic - [address] [phone] Pre-employment drug screening (Primary Dx) from Last [...] 3 Months Insurance [employer] Care Teams Animal Rescuer Relationship Specialty Start Date End Date Bryon, MD Jyoti [address] [place] [address] [address] [facility] [place] [address] PCP - General Internal Medicine 07/08/12
== END 2024-12-14 15:33 | disposition home or self-care (01) ==
LOC: HO.US 15:32
PROVIDERS: PCP Internal Medicine; Visit Provider Internal Medicine
DX: R31.29 Other microscopic hematuria (principal)
CPT/HCPCS: 76770

== ENCOUNTER → 2024-12-14 15:34 | Outpatient (BNV) | payer OTHER, SELFPAY | PROVIDERS: PCP Internal Medicine; Visit Provider Radiology Diagnostic Radiology | DX: R31.29 Other microscopic hematuria (principal) | CPT/HCPCS: 76770 ==

== ENCOUNTER 2024-12-26 10:34 | Outpatient (REF) | payer OTHER, SELFPAY | END 2024-12-26 10:35 | disposition home or self-care (01) | LOC: HO.LAB 10:34 | PROVIDERS: PCP Internal Medicine; Visit Provider Nurse Practitioner Family | DX: R35.0 Frequency of micturition (principal); R31.29 Other microscopic hematuria; R39.15 Urgency of urination; R39.14 Feeling of incomplete bladder emptying | CPT/HCPCS: 51798; 81003; 88112; 99202 ==

== ENCOUNTER 2024-12-26 10:34 | Outpatient (AMB) | payer OTHER, SELFPAY ==
--- NOTE | 2024-12-26 10:35 | A.OFFVIS_ITS ---
Intake Visit Reasons: urinary frequency/incomplete bladder emptying? Intake Note: patient presents today for: new pt urinary frequency/ imcomplete bladder emptying urology medications: none blood thinners:none smoker: no today's PVR: 17mls Traffic Control Operator Required: No Accompanied by: Self / Same As Patient Allergies Seasonal Allergies Allergy (Intermediate, Verified 12/26/24 11:12) Itching environmental allergies Allergy (Mild, Verified 12/26/24 11:12) itchy eyes, runny nose metronidazole (Flagyl) Adverse Reaction (Intermediate, Verified 12/26/24 11:12) stomach upset paroxetine (Paxil) Adverse Reaction (Intermediate, Verified 12/26/24 11:12) vomiting clarithromycin (From Biaxin) Adverse Reaction (Mild, Verified 12/26/24 11:12) Headache lactose (Lactose) Adverse Reaction (Mild, Verified 12/26/24 11:12) cramping, vomiting Medication List - Last Reconciled 12/26/24 by MARIA Ross- amitriptyline 25 mg PO BEDTIME cetirizine (Zyrtec) 10 mg PO DAILY fluticasone propionate 50 mcg/actuation 1 spray intranasal BID lamotrigine (Lamictal) 25 mg PO DAILY lorazepam 0.5 mg PO BEDTIME PRN magnesium oxide 400 mg PO BEDTIME mirtazapine 30 mg PO BEDTIME prochlorperazine maleate (Compazine) 5 mg PO TID PRN 30 days trazodone 50 - 150 mg PO BEDTIME PRN HPI Comments Details: Tanya is a very pleasant 34-year-old female patient of Dr. Henry. She has a past medical history of migraines, multinodular thyroid, microscopic hematuria, mild asthma, anxiety, hypothyroidism, fibromyalgia, restless leg syndrome, GERD, depression, and IBS. She presents to the office today as a new patient for ongoing lower urinary tract symptoms she has been experiencing. In discussion with the patient today she reports for many years she has experienced ongoing lower urinary tract symptoms (urinary urgency, urinary frequency and feeling of incomplete bladder emptying) however feel at times they become more tolerable however over the last 7-10 months feels lower urinary tract symptoms have been more bothersome. She reports having followed up with her PCP and has recently had a retroperitoneal ultrasound and recommendations were made for urology referral for further assessment evaluation. These results were reviewed and communicated with the patient today. 12/22 bilateral kidneys are normal in size, contour, and echogenicity. The bladder is well distended and normal. Postvoid bladder volume 1.2 mL. Unremarkable kidneys except for mild pelvic fullness of left kidney per radiology report. We did discussed at length potential causes of lower urinary tract symptoms we also discussed further treatment options and risks and benefits of these treatment options. She discusses her reluctantcy in taking medications. In office urinalysis results reviewed with the patient today 2+ microscopic hematuria otherwise within normal limits. When asked she denies any previous history of nicotine dependence and or workplace chemical exposure. We did discussed potential causes of microscopic hematuria as well as further workup in risks and benefits of these interventions. All questions were answered. She denies visible/gross hematuria, dysuria, foul smelling urine, changes to urinary stream, flank pain, fever, and or chills. History of Present Illness The patient is a 34-year-old female presenting with urinary urgency and frequency. She reports a persistent sensation of needing to urinate shortly after voiding, which has been ongoing for several months. The symptoms have not been associated with any specific inciting events. The patient underwent a recent ultrasound which was reviewed during today's office visit. There is a history of microscopic hematuria, noted during urine tests, which the patient has experienced more than once. The patient denies any history of smoking and or workplace chemical exposure. Plan Patient was informed and verbally consented to the use of an ambient scribe for clinic note documentation during this visit. 1. Overactive Bladder The patient was advised to avoid certain food groups that may trigger symptoms, including caffeine, alcohol, spicy foods, tomato-based products, chocolate, and carbonated or citrus beverages. Pelvic floor therapy was discussed, and the patient was placed on a waiting list for this treatment. Urodynamic testing was also suggested to further evaluate bladder function as patient does not wish to trial medications at this time. 2. Interstitial Cystitis The patient was informed about the possibility of interstitial cystitis, characterized by chronic bladder inflammation. Management focuses on symptom relief and identifying triggers. [facility] Medical History Pharyngitis Migraine Numbness and tingling in both hands IUD (intrauterine device) in place Abnormal Pap smear of vagina Multinodular thyroid Hematuria Thyroid nodule Mild asthma Otitis SILVIA (generalized anxiety disorder) Hyperthyroidism Low TSH level Hair loss Strep sore throat Overweight (BMI 25.0-29.9) Fibromyalgia Restless leg syndrome GERD (gastroesophageal reflux disease) IBS (irritable bowel syndrome) Depression Anxiety delivery delivered Surgical History History of delivery H/O laparoscopy [place] teeth extracted Hx of tonsillectomy Family History Father Kidney failure Heart disease Colon polyps Bipolar 1 disorder Hypertension CVD (cardiovascular disease) Chronic mental illness Substance use disorder Pancreatitis Mother Seizure Depression Anxiety Maternal Grandmother Hemorrhagic stroke History of multiple strokes Maternal Grandfather Cancer Family/Other Breast cancer Family/Other Colon cancer Social History (Updated 12/12/24 @ 10:03 by NOE Shepherd) Household Members: Family Housing: Apartment Alcohol intake: never Patient Tobacco Use Status: Never used Tobacco e-Cigarette/Vaping Use: Never Used Second Hand Smoke Exposure: No service: No Current occupational status: 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, 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 Sexual orientation: Straight/Heterosexual Gender identity: Female Cognitive needs: No Hearing needs: No Vision needs: Yes Female Reproductive History Menstrual Age of Menarche: 10 Review of Systems Const All systems reviewed & are unremarkable except as noted in HPI and below Physical Exam Const General: cooperative, comfortable, no acute distress, well developed, alert and awake Orientation/consciousness: patient oriented x3 Limitations: no limitations HEENT Head: Yes normal to inspection, Yes normocephalic and Yes atraumatic Ears: hearing grossly normal bilaterally Eyes General: appearance normal, both eyes and all related structures Neck Neck: Yes normal visual inspection and Yes trachea midline Chest Chest palpation & inspection: normal inspection of the chest Resp Effort & Inspection: normal respiratory effort and able to speak in complete sentences Cardio Rate: regular rate GI Inspection: Yes normal to inspection General: Yes no CVA tenderness Back/Spine/Pelvis Back: no CVA tenderness Skin General skin exam: no rashes or lesions noted Neuro General: patient oriented x3 Extrem General: Yes normal to inspection Psych Appearance: grossly normal and well kempt Mental Status: mental status grossly normal Speech and movement: Normal speech and movement present and Clear speech present Affect: normal affect Attitude: cooperative Thought process: Normal thought process present Thought content: Normal thought content present Insight: Fair insight present (Psych) Judgement: Fair judgement present (Psych) Office Procedures Post Void Residual Post Residual Void Post Void Residual (PVR): 19932-[id number] Void Residual by ultrasound Results AMB Urinalysis, Automated UA Leukoctes 70 Jailene/uL Last Edit by VIJAYA Lepe on 12/26/24 10:51 UA Nitrite Last Edit by Binta Glover [facility] on 12/26/24 10:51 UA Urobilinogen 0.2 mg/dL Last Edit by Binta Glover [facility] on 12/26/24 10:5 1 UA Protein 0 mg/dL Last Edit by Binta Glover [facility] on 12/26/24 10:51 UA pH 6.0 Last Edit by Binta Glover [facility] on 12/26/24 10:51 UA Blood 80 Dontrell/uL Last Edit by Binta Glover [facility] on 12/26/24 10:51 UA Specific Wilcox 1.020 Last Edit by Binta Glover [facility] on 12/26/24 10: 51 UA Ketone Last Edit by Binta Glover [facility] on 12/26/24 10:51 UA Bilirubin 0 mg/dL Last Edit by Binta Glover [facility] on 12/26/24 10:51 UA Glucose 0 mg/dL Last Edit by Binta Glover [facility] on 12/26/24 10:51 Results Reviewed Results Reviewed: Laboratory Last Values Urine pH (Auto) 6.0 12/26/24 10:49 Specific Wilcox (Auto) 1.020 12/26/24 10:49 Urine Protein (Auto) 0 mg/dL 12/26/24 10:49 Glucose (UA)(Auto) 0 mg/dL 12/26/24 10:49 Urine Blood (Auto) 80 Dontrell/uL 12/26/24 10:49 Urine Bilirubin (Auto) 0 mg/dL 12/26/24 10:49 Urine Urobilinogen (Auto) 0.2 mg/dL 12/26/24 10:49 Leukocyte Esterase (Auto) 70 Jailene/uL 12/26/24 10:49 Date of Service: 12/14/24 Procedure(s): US retroperitoneal comp FINDINGS: RIGHT KIDNEY: 11.2 x 3.7 x 4.0 cm (SAG x AP x TRV). The kidney is normal in size, contour, and echogenicity. Renal cortical thickness is normal. No calculi or focal parenchymal lesions . There is no hydronephrosis. LEFT KIDNEY: 10.9 x 4.6 x 3.3 cm (SAG x AP x TRV). The kidney is normal in size, contour, and echogenicity. Renal cortical thickness is normal. No calculi or focal parenchymal lesions. There is mild pelvic fullness. Was not visualized on previous exam 2019. BLADDER: Well distended and normal. Bilateral ureteral jets are demonstrated. Prevoid bladder volume is 273.4 mL. Postvoid bladder volume is 1.2 mL. IMPRESSION: Unremarkable kidneys except for mild pelvic fullness left kidney. Assessment & Plan Assessment & Plan (1) Urinary frequency: Code(s): R35.0 - Frequency of micturition Category: Medical (2) Microscopic hematuria: Code(s): R31.29 - Other microscopic hematuria Category: Medical (3) Urinary urgency: Code(s): R39.15 - Urgency of urination Category: Medical (4) Feeling of incomplete bladder emptying: Code(s): R39.14 - Feeling of incomplete bladder emptying Category: Medical Plan In office urinalysis results reviewed with the patient today; as noted above; will send for urine cytology. PVR 17 mL We did discussed potential causes of microscopic hematuria as well as lower urinary tract symptoms and further interventions and risks and benefits of these interventions. All questions were answered. Information provided regarding bladder diary as well as bladder triggers and irritants. Recent retroperitoneal ultrasound results reviewed with the patient today; as noted above. Will refer to pelvic floor therapy for further assessment evaluation. She would like to undergo in office urodynamics. All questions were answered. Follow-up next available in office urodynamics; or sooner with any issues, concerns, and or questions. Orders: Orders Urine Cytology Today R31.29 - Other microscopic hematuria AMB Post Void Residual by ultrasound Today R33.9 - Retention of urine, unspecified AMB Urinalysis Automated Today Z13.9 - Encounter for screening, unspecified PT Evaluation and Treatment Today R35.0 - Frequency of micturition, R39.14 - Feeling of incomplete bladder emptying, R39.15 - Urgency of urination Patient Instructions: The patient had an opportunity to ask questions regarding the treatment plan. All questions were answered. Physical exam, labs, and imaging were discussed and reviewed in detail. As well as risks, benefits, and discussion of treatment choices. No major barriers to understanding were identified. The patient expressed understanding and agreement with the above treatment plan. The patient was made aware they should contact our office by phone for worsening of their current condition, the appearance of new symptoms, or with any questions or concerns. Compliance is encouraged with any medications and follow up testing that is ordered. It is a privilege to be allowed the opportunity to participate in? your urological care.? Again, if you have any questions or concerns If you have any questions or concerns please do not hesitate to contact me. The office is [phone]. This note is constructed using voice recognition software. While every effort has been made to ensure accuracy quality lead errors may have been included. Yours sincerely, ELISA Ross Coding Level of Care Code New Pt Level 3 (39912) Diagnoses Urinary frequency R35.0 Microscopic hematuria R31.29 Urinary urgency R39.15 Feeling of incomplete bladder emptying R39.14 CPT Codes Post Residual Void - PVR CPT Code: 48947-[id number] Void Residual by ultrasound ([id number])
--- OUTSIDE RECORDS SUMMARY | 2024-12-26 11:52 | XMS_ITS | Clinical Summary ---
Author Organization [address] Building Address [address] [place] [id number] Phone Care Team Providers Care Housing And Residence Life Director Name Role Phone Jyoti Slater MD Primary Care Provider [phone] Encounters Date Type Department Care Team Description 11/17/2024 3:00 PM EDT Clinic Lab Collection [facility] - [address] [id number] Pre-employment drug screening (Primary Dx) from Last [...] (2 of 2 - PCV) 02/14/2014 02/14/2013 HPV Vaccines (1 - 3-dose SCDM series) 12/18/2015 Depression Screening 03/30/2024 HIV Screening 11/17/2024 Hepatitis C Screening 11/17/2024 Social Influencers of Health Screening 11/17/2024 COVID-19 Vaccine ( - season) 2024 Influenza Vaccine (#1) 2024 , 02/23/2023, 01/09/2022, Additional history exists DTaP,Tdap,and Td Vaccines (4 - Td or Tdap) 12/28/2028 12/28/2018, 03/04/2017, 01/02/2016 RSV Immunization Adult Patients (1 - 1-dose 75+ series) 12/18/2063 HIB Vaccines Aged Out No longer eligi [...] 3 Months Insurance [employer]IC Care Teams Housing And Residence Life Director Relationship Specialty Start Date End Date Jyoti Slater MD [address] [place] [address] [address] [facility] [place] [address] PCP - General Internal Medicine 07/08/12
--- OUTSIDE RECORDS SUMMARY | 2024-12-26 11:52 | XMS_ITS | Patient Health Record ---
Author Organization [facility] Address [address] [place] [address] Care Team Providers Care Emergency Vehicle Driver Name Role Phone Jammie Castle Primary Care Provider Vineet Varela Jr Unavailable [phone] Allergies Allergen (clinical drug ingredient) Drug/Non Drug [...] Problem Status W/U Status Risk Notes Problem [id number] Periumbilical pa in (R10.33) Active confirmed Problem 14116168 Irritable bowel syndrome without diarrhea (K58.9) Active confirmed Problem [id number] Nausea (R11.0) Active confirmed Problem [id number] Gastroesophageal reflux disease without esophagitis (K21.9) Active confirmed Plan Of Treatment Future Test Test Name Order Date UPPER GI ENDOSCOPY 12/27/2015 Insurance Providers Payer Name Payer Address Payer Phone Subscriber Number Group Number Insured Name Patient Relationship to Insured Coverage Start Date Coverage End Date [employer] Plan [address] [address] [place], [place] [id number] [phone] [id number] CHRISTIANO WOODWARD Self - patient is the insured MED[place] [address] [place] [phone] [phone] [id number] CHRISTIANO WOODWARD Self - patient is the insured Medical (General) History Medical History History ICD Code history of abdominal pain reflux asthma allergies bipolar disorder anxiety depression Denies FL,DM,CVA,renal disease endometriosis Surgical History Surgery Date(Month/Year) tonsillectomy wisdom teeth extraction laporscopic surgery for endometreosis
== END 2024-12-26 11:10 | disposition home or self-care (01) ==
LOC: HO.HUSH 10:35
PROVIDERS: PCP Internal Medicine; Visit Provider Nurse Practitioner Family
DX: R35.0 Frequency of micturition (principal); R31.29 Other microscopic hematuria; R39.15 Urgency of urination; R39.14 Feeling of incomplete bladder emptying; Z13.9 Encounter for screening, unspecified
CPT/HCPCS: 99203

== ENCOUNTER 2025-01-13 10:43 | Outpatient (AMB) | payer OTHER, SELFPAY ==
--- NOTE | 2025-01-13 10:44 | A.OFFVIS_ITS ---
Vital Signs 01/13/25 10:45 Height 5 ft 3 in Weight 166 lb 6 oz BMI 29.5 BP 116/82 Blood Pressure Location Rt brachial Position Sitting Pulse 82 Pulse Source Pulse Oximeter Pulse Oximetry (%) 100 Oxygen Delivery Method Room Air Intake Visit Reasons: 4m follow up Intake Note: Follow up Numbness and tingling in both hands, Migraine Set Up Operator Required: No Accompanied by: Self / Same As Patient Allergies Seasonal Allergies Allergy (Intermediate, Verified 01/13/25 10:45) Itching environmental allergies Allergy (Mild, Verified 01/13/25 10:45) itchy eyes, runny nose metronidazole (Flagyl) Adverse Reaction (Intermediate, Verified 01/13/25 10:45) stomach upset paroxetine (Paxil) Adverse Reaction (Intermediate, Verified 01/13/25 10:45) vomiting clarithromycin (From Biaxin) Adverse Reaction (Mild, Verified 01/13/25 10:45) Headache lactose (Lactose) Adverse Reaction (Mild, Verified 01/13/25 10:45) cramping, vomiting Medication List - Last Reconciled 01/13/25 by Eun Salazar MD amitriptyline 25 mg PO BEDTIME baclofen 5 mg PO BEDTIME cetirizine (Zyrtec) 10 mg PO DAILY fluticasone propionate 50 mcg/actuation 1 spray intranasal BID lamotrigine 100 mg PO DAILY lorazepam 0.5 mg PO BEDTIME PRN magnesium oxide 400 mg PO BEDTIME mirtazapine 30 mg PO BEDTIME prochlorperazine maleate (Compazine) 5 mg PO TID PRN 30 days HPI Comments Details: 33y/o Right handed female with h/o restless legs sydnrome, migraines and carpal tunnel syndrome comes for increased paresthesias in her hands. she was seeing in the past. 09/2024 EMG- This is an abnormal study. 2. There is electrodiagnostic evidence for bilateral moderate-severe median neuropathy at the wrist, consistent with carpal tunnel syndrome. Right worse than left. 3. There is no electrodiagnostic evidence for ulnar neuropathy, brachial plexopathy, or cervical radiculopathy. She has a date for surgery . History from last visit 08/2024she was diagnosed with carpal tunnel syndrome about 6 years ago - R>L.she feels her paresthesias , numbness an dpain ahs worsened. she wake sup at night with pain and a numbness, Carrying anything in her Right hand can trigger symptoms. she has trouble writing or doing any activity with her right hand. she had EMG many years ago and has using braces regularly.she denies any shooting pains form the neck. she also reports migraines for atleats 5 years. she has family h/o migraines. The pain is usually whole head and retroauricular region , posterior neck on the right. The headaches are pounding .she has some nausea.she had visual aura once when headaches are severe. Not sure if she has photophobia or phonophobia she takes 2 extra strength tylenol and it helps. it can last 3-4 hrs. she has 3- 4 migraines per week.she used to be on amitriptyline - but ran out of prescriptions. she used to have severe restless legs with leg movements - now it is fairly controlled.she used to be on pramiipexole. [facility] Medical History Pharyngitis Migraine Numbness and tingling in both hands IUD (intrauterine device) in place Abnormal Pap smear of vagina Multinodular thyroid Hematuria Thyroid nodule Mild asthma Otitis SILVIA (generalized anxiety disorder) Hyperthyroidism Low TSH level Hair loss Strep sore throat Overweight (BMI 25.0-29.9) Fibromyalgia Restless leg syndrome GERD (gastroesophageal reflux disease) IBS (irritable bowel syndrome) Depression Anxiety delivery delivered Surgical History History of delivery H/O laparoscopy [place] teeth extracted Hx of tonsillectomy Family History Father Kidney failure Heart disease Colon polyps Bipolar 1 disorder Hypertension CVD (cardiovascular disease) Chronic mental illness Substance use disorder Pancreatitis Mother Seizure Depression Anxiety Maternal Grandmother Hemorrhagic stroke History of multiple strokes Maternal Grandfather Cancer Family/Other Breast cancer Family/Other Colon cancer Social History Household Members: Family Housing: Apartment Alcohol intake: never Patient Tobacco Use Status: Never used Tobacco e-Cigarette/Vaping Use: Never Used Second Hand Smoke Exposure: No service: No 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 occupational status: 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, 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 Sexual orientation: Straight/Heterosexual Gender identity: Female Cognitive needs: No Hearing needs: No Vision needs: Yes Female Reproductive History Menstrual Age of Menarche: 10 Physical Exam Vital Signs: Last Vital Signs Pulse 82 01/13/25 10:45 BP 116/82 01/13/25 10:45 Pulse Ox 100 01/13/25 10:45 Oxygen Delivery Method Room Air 01/13/25 10:45 BMI result Body Mass Index 29.5 Const General: cooperative, healthy appearing, comfortable and no acute distress Nutritional Appearance: average body habitus Orientation/consciousness: patient oriented x3 Eyes Pupils: Equal, round and reactive pupils present Neuro General: patient oriented x3, gait normal, tone normal, moves all extremities and no focal motor deficits Cranial nerves: Yes Equal, round and reactive pupils present, Yes Bilaterally intact EOM present, Yes Nystagmus not present, Yes Normal facial strength present, Yes Midline tongue present, Yes Symmetric palate elevation present and Yes Ability to bilaterally elevate shoulders present Cognition (Neuro): normal cognition Gait exam (Neuro): Normal gait present Motor exam (neuro): 5/5 motor strength present throughout and Normal motor muscle tone present throughout Coordination: [id number] test normal Assessment & Plan Assessment & Plan (1) Numbness and tingling in both hands: Code(s): R20.0 - Anesthesia of skin; R20.2 - Paresthesia of skin Category: Medical (2) Migraine: Code(s): G43.909 - Migraine, unspecified, not intractable, without status migrainosus Category: Medical Qualifiers: Intractability: not intractable Migraine type: migraine (< 15 days per month) with aura Status migrainosus presence: without status migrainosus Qualified Code(s): G43.109 - Migraine with aura, not intractable, without status migrainosus Plan EMG NCS - This is an abnormal study. 2. There is electrodiagnostic evidence for bilateral moderate-severe median neuropathy at the wrist, consistent with carpal tunnel syndrome. Right worse than left. 3. There is no electrodiagnostic evidence for ulnar neuropathy, brachial plexopathy, or cervical radiculopathy. amitriptyline 25 mg qhs Magnesium 400mg qhs Vit B 2 400mg qam Restless legs is stable- will monitor she is seeing [facility] Medications: New baclofen 5 mg PO BEDTIME 30 tabs 6RF Coding Level of Care Code Est Pt Level 4 (88480) Diagnoses Numbness and tingling in both hands R20.0; R20.2 Migraine with aura and without status migrainosus, not intractable G43.109 Intractability: not intractable Migraine type: migraine (< 15 days per month) with aura Status migrainosus presence: without status migrainosus
[2025-01-13 10:45] VITALS: BP 116/82; PULSE 82; O2SAT 100; BMI 29.5
== END 2025-01-13 12:11 | disposition home or self-care (01) ==
LOC: HO.HSMS 10:44
PROVIDERS: PCP Internal Medicine; Visit Provider Psychiatry & Neurology Neurology
DX: R20.0 Anesthesia of skin (principal); R20.2 Paresthesia of skin; G43.109 Migraine with aura, not intractable, without status migrainosus
CPT/HCPCS: 99214

== ENCOUNTER → 2025-01-13 10:43 | Outpatient (BNVA) | payer OTHER, SELFPAY | PROVIDERS: PCP Internal Medicine; Visit Provider Psychiatry & Neurology Neurology | DX: R20.0 Anesthesia of skin (principal); R20.2 Paresthesia of skin; G43.109 Migraine with aura, not intractable, without status migrainosus | CPT/HCPCS: 99212 ==

== ENCOUNTER 2025-03-03 14:56 | Outpatient (REF) | payer OTHER, SELFPAY ==
[2025-03-03 18:09] LABS: Resp Syncy Virus RNA Qual PCR NEGATIVE (Negative); SARS COV2 PCR INHOUSE NEGATIVE (Negative)
== END 2025-03-03 14:57 | disposition home or self-care (01) ==
LOC: HO.LAB 14:56
PROVIDERS: PCP Internal Medicine; Visit Provider Student in an Organized Health Care Education/Training Program
DX: R05.9 Cough, unspecified (principal); J06.9 Acute upper respiratory infection, unspecified
CPT/HCPCS: 87637

== ENCOUNTER 2025-03-08 14:57 | Outpatient (AMB) | payer OTHER, SELFPAY ==
--- NOTE | 2025-03-08 14:58 | AM.OFFWIN_ITS ---
Intake Vital Signs 03/08/25 15:01 Height 5 ft 3 in Weight 164 lb BMI 29.0 BP 110/68 Blood Pressure Location Lt brachial Position Sitting Respiration 20 Pulse 86 Pulse Source Pulse Oximeter Temp 97.9 F Temp Source Oral Pulse Oximetry (%) 98 Oxygen Delivery Method Room Air Intake Visit Reasons: EP - Feeling Off Intake Note: EP has severe headache, neck pain, lower back pain, cough and nasal discharges for a week. Patient Tobacco Use Status: Never used Tobacco Allergies Seasonal Allergies Allergy (Intermediate, Verified 03/08/25 15:10) Itching environmental allergies Allergy (Mild, Verified 03/08/25 15:10) itchy eyes, runny nose metronidazole (Flagyl) Adverse Reaction (Intermediate, Verified 03/08/25 15:10) stomach upset paroxetine (Paxil) Adverse Reaction (Intermediate, Verified 03/08/25 15:10) vomiting clarithromycin (From Biaxin) Adverse Reaction (Mild, Verified 03/08/25 15:10) Headache lactose (Lactose) Adverse Reaction (Mild, Verified 03/08/25 15:10) cramping, vomiting Do you need a note to return to daycare/school/sports/work: No HPI HPI Comments History of Present Illness Details History of Present Illness - The patient is a 34-year-old female wi th a past medical history of microscopic hematuria, migraines, bilateral carpal tunnel syndrome, environmental allergies, RLS,, GERD, hyperthyroidism (not on meds) and hair loss presenting to the walk- in clinic due to an inability to obtain a timely appointment with her primary care provider for multiple pressing health concerns. - She reports feeling that she is falli ng apart and seeks answers for her symptoms. - The patient is recovering from influen za but that is not why she is here today. - She has a history of migraines managed by a neurologist, but reports that increasing her medication has not been effective. She wants answers as to why she has the migraines and how she can stop them without just increasing the medication. - She reports neck pain radiating to her arm, and a cervical spine MRI revealed mild to moderate left-sided neuroforaminal narrowing at C5-C6. She saw [facility] spine support [place] and she agreed with the PA that she would do acupuncture however she has not pursued this yet. - Previous trials of physical therapy an d trigger point injections reportedly aggravated her symptoms. - She also notes the presence of a lump in her neck that has not yet been evaluated. - The patient experiences significant fa tigue, describing a sensation of her legs feeling heavy, which makes walking feel like a task and running impossible. - She has a history of low potassium not ed on a previous lab test in September which was not supplemented or rechecked. - Her thyroid levels have consistently b een on the low end of the normal range. She is not on medication for hyperthyroidism. - She has a constant feeling of needing to urinate and has a history of microscopic hematuria. - She has a follow-up appointment schedu led with urology in March. - She denies any chance of . - She does have a history of anxiety and speaks with a psychiatrist regularly about it. Review of Systems - CONSTITUTIONAL: Reports excessive fati fredrick. - RESPIRATORY: Reports a resolving cough after having the flu. - NEUROLOGICAL: Reports a history of ty isidoro, neck pain radiating to the arm, and a heavy feeling in her legs. - MUSCULOSKELETAL: Reports difficulty wa lking and inability to run. - GENITOURINARY: Reports a constant feel ing of needing to urinate and a history of microscopic hematuria. - HEENT: Reports a lump in her neck. - GYNECOLOGICAL: Denies possibility of p regnancy. All systems reviewed and are unremarkable except as noted in HPI Physical Exam General: Cooperative, healthy appearing, comfortable, no acute distress and well developed Orientation: Patient oriented x3 Limitations: Walking feels like a task, unable to run Head: Normal to inspection Ears: Hearing grossly normal bilaterally Nose: Normal External nose present Face and sinus: Normal facial exam Eyes: Appearance normal, both eyes and all related structures Neck: Normal visual inspection, supple Respiratory: Normal respiratory effort and able to speak in complete sentences. Skin: No rashes or lesions noted Neuro: Patient oriented x3, normal gait Extremities: Moving all extremities normally, normal to inspection [facility] Medical History Pharyngitis Migraine Numbness and tingling in both hands IUD (intrauterine device) in place Abnormal Pap smear of vagina Multinodular thyroid Hematuria Thyroid nodule Mild asthma Otitis SILVIA (generalized anxiety disorder) Hyperthyroidism Low TSH level Hair loss Strep sore throat Overweight (BMI 25.0-29.9) Fibromyalgia Restless leg syndrome GERD (gastroesophageal reflux disease) IBS (irritable bowel syndrome) Depression Anxiety delivery delivered Surgical History History of delivery H/O laparoscopy [place] teeth extracted Hx of tonsillectomy Family History Father Kidney failure Heart disease Colon polyps Bipolar 1 disorder Hypertension CVD (cardiovascular disease) Chronic mental illness Substance use disorder Pancreatitis Mother Seizure Depression Anxiety Maternal Grandmother Hemorrhagic stroke History of multiple strokes Maternal Grandfather Cancer Family/Other Breast cancer Family/Other Colon cancer Social History Household Members: Family Housing: Apartment Alcohol intake: never Patient Tobacco Use Status: Never used Tobacco e-Cigarette/Vaping Use: Never Used Second Hand Smoke Exposure: No service: No Current occupational status: 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83 - Other fatigue Qualifiers: Encounter type: initial encounter Plan: Patient was informed and verbally consented to the use of an ambient scribe for clinic note documentation during this visit. - The patient presented to urgent care for multiple chronic issues due to the inability to secure a timely primary care appointment. - A primary care appointment has been scheduled for the following day at 11:[address] Westbrook to address her ongoing concerns. - A workup was initiated to evaluate the patient's report of excessive fatigue. - Labs were ordered, including a CBC to check for anemia, a thyroid level to assess for thyroid dysfunction, a vitamin D level, and a Lyme panel. A comprehensive metabolic panel has been ordered to re-evaluate electrolyte levels, including potassium, as well as to assess liver and kidney function. (2) Myalgia: Code(s): M79.10 - Myalgia, unspecified site Plan: as above (3) Cervicalgia: Code(s): M54.2 - Cervicalgia Plan: - The patient's history of neck pain with radiation to the arm is noted in the context of a prior MRI showing mild to moderate left-sided neuroforaminal narrowing at C5-C6. - Prior treatments including physical therapy and trigger point injections have aggravated her symptoms. - She will persue other management options, such as massage or acupuncture. - Follow up with [facility] (4) Microscopic hematuria: Code(s): R31.29 - Other microscopic hematuria Plan: - The patient has a prescheduled follow-up on April 07 with her urologist and should be sure to attend this appointment to address her concerns. If she would like to be seen sooner, she should call the office and get this appointment moved sooner. (5) Migraine: Code(s): G43.909 - Migraine, unspecified, not intractable, without status migrainosus Qualifiers: Migraine type: migraine (< 15 days per month) with aura Status migrainosus presence: without status migrainosus Intractability: not intractable Qualified Code(s): G43.109 - Migraine with aura, not intractable, without status migrainosus Plan: -The patient has prescheduled follow up in June with her neurologist and should be sure to attend this appointment to address her concerns. If she would like to be seen sooner, she should call the office and get this appointment moved sooner. Orders: Orders Complete Blood Count Auto Diff Today M79.10 - Myalgia, unspecified site, R53.83 - Other fatigue TSH reflex Free T4 Today M79.10 - Myalgia, unspecified site, R53.83 - Other fatigue Lyme IgG/IgM w/reflex to WB Today M79.10 - Myalgia, unspecified site, R53.83 - Other fatigue Vitamin D 25-OH Total Today M79.10 - Myalgia, unspecified site, R53.83 - Other fatigue Comprehensive Met. Panel Today M79.10 - Myalgia, unspecified site, R53.83 - Other fatigue Coding Level of Care Code Est Pt Level 4 (21078) Diagnoses Fatigue R53.83 Encounter type: initial encounter Myalgia M79.10 Cervicalgia M54.2 Microscopic hematuria R31.29 Migraine with aura and without status migrainosus, not intractable G43.109 Migraine type: migraine (< 15 days per month) with aura Status migrainosus presence: without status migrainosus Intractability: not intractable
[2025-03-08 15:01] VITALS: BP 110/68; PULSE 86; RESP 20; TEMP 36.6; O2SAT 98; BMI 29.0
--- OUTSIDE RECORDS SUMMARY | 2025-03-08 23:29 | XMS_ITS | Patient Health Record ---
Author Organization [facility] Address [address] [place] [address] Care Team Providers Care Shipping Support Name Role Phone Jammie Castle Primary Care Provider Vineet Varela Jr Unavailable Allergies Allergen (clinical drug ingredient) Drug/Non Drug Allergy documented on EMR Reaction Allergy Type Onset Date Status Biaxin Unknown Drug Allergy Active paroxetine Paxil Unknown Drug Allergy Active Reason For Referral No Information Medications Medication SIG (Take, Route, Frequency, Duration) Notes Start Date End Date Status Amitriptyline HCl 25 MG Tablet 1 tablet Orally Once a day Active Zantac 300 MG Tablet 1 tablet at bedtime Orally Once a day; Duration: 30 day(s) 07/01/2017 Active Pantoprazole Sodium 40 MG Tablet Delayed Release 1 tablet Orally Once a day; Duration: 30 Active rOPINIRole HCl 2 MG Tablet 1 tablet Oral ly Once a day Active Topamax 50 MG Tablet 1/2 tablet Orally prn Active LORazepam 0.5 MG Tablet 1 tablet as need ed Orally every 6 hrs Active ZyrTEC Allergy 10 MG Tablet 1 tablet Ora lly Once a day Active Social History Social History Additional Details Category Social Info Options Details Miscellaneous: Marital status: single Occupation: [employer] Problems Problem Type SNOMED Code ICD Code Onset Dates Problem Status W/U Status Risk Notes Problem Periumbilical pain (823590274) Periumbilical pain (R10.33) Active confirmed Problem Irritable bowel syndrome (75003790) Irritable bowel syndrome without diarrhea (K58.9) Active confirmed Problem Nausea (877742121) Nausea (R11.0) Active confir med Problem Gastroesophageal reflux disease without esophagitis (255859411) Gastroesophageal reflux disease without esophagitis (K21.9) Active confirmed Plan Of Treatment Future Test Test Name Order Date UPPER GI ENDOSCOPY 12/27/2015 Insurance Providers Payer Name Payer Address Payer Phone Subscriber Number Group Number Insured Name Patient Relationship to Insured Coverage Start Date Coverage End Date [employer] [facility] [address] [address] [place], [place] [phone] [id number] CHRISTIANO WOODWARD Self - patient is the insured [place] [address] [place] [address] [phone] [id number] CHRISTIANO WOODWARD Self - patient is the insured Medical (General) History Medical History History ICD Code history of abdominal pain reflux asthma allergies bipolar disorder anxiety depression Denies UT,DM,CVA,renal disease endometriosis Surgical History Surgery Date(Month/Year) tonsillectomy wisdom teeth extraction laporscopic surgery for endometreosis
--- OUTSIDE RECORDS SUMMARY | 2025-03-08 23:29 | XMS_ITS | Clinical Summary ---
Author Organization [place] [address] [address] [facility] Address [address] [place] [address] Phone Care Team Providers Care Marketing Project Specialist Name Role Phone Jyoti Slater MD Primary Care Provider [phone] Social History Tobacco Use Types Packs/Day Years [...] Health Screening 11/17/2024 COVID-19 Vaccine ( - 2024- season) 2024 Influenza Vaccine (#1) 2024 , [...] on patient's age to complete this topic Insurance [employer] Care Teams Marketing Project Specialist Relationship Specialty Start Date End Date Jyoti Slater MD [address] [place] [address] [address] [facility] [place] [address] PCP - General Internal Medicine 07/08/12
== END 2025-03-08 16:56 | disposition home or self-care (01) ==
LOC: HO.HMCWIS 14:57
PROVIDERS: PCP Internal Medicine; Visit Provider Physician Assistant
DX: R53.83 Other fatigue (principal); M79.10 Myalgia, unspecified site; M54.2 Cervicalgia; R31.29 Other microscopic hematuria; G43.109 Migraine with aura, not intractable, without status migrainosus

== ENCOUNTER 2025-03-08 14:57 | Outpatient (REF) | payer OTHER, SELFPAY ==
[2025-03-08 18:18] LABS: MANUAL DIFF FLAG NO
[2025-03-08 18:47] LABS: Hematocrit 38.3 % (37.0-47.0); Hemoglobin 13.0 g/dl (12.0-16.0); Imm Gran Abs Auto 0.01 X10*3/uL (0.00-0.03); Imm Gran Pct Auto 0.2 % (0.0-0.4); Lymphocytes Absolute Auto 2.4 X10*3/uL (1.2-4.9); Mean Corpuscular HGB Conc 33.9 g/dl (31.0-35.0); Mean Corpuscular Hemoglobin 28.3 pg (27.0-33.0); Mean Corpuscular Volume 83.4 fL (80.0-98.0); NRBC Abs Auto 0.000 X10*3/uL (0.0-0.012); NRBC Pct Auto 0.0 /100WBC (0.0-0.2); Platelet Count 275 X10*3/uL (160-400); Red Blood Count 4.59 X10*6/uL (4.20-5.50); White Blood Count 4.7 X10*3/uL (4.8-10.8)
[2025-03-08 19:00] LABS: Alanine Aminotransferase 17 U/L (0-31); Albumin Level 4.3 g/dL (3.5-5.0); Alkaline Phosphatase 69 U/L (39-117); Anion Gap 10 (12-20); Aspartate Amino Transferase 24 U/L (5-31); Blood Urea Nitrogen 4 mg/dL (9-16); Calcium 8.8 mg/dL (8.4-10.2); Carbon Dioxide 31 mmol/L (22-29); Chloride 104 mmol/L (96-108); Estimated Glomerular Filt Rate > 60; Potassium 3.4 mmol/L (3.3-5.1); Sodium 142 mmol/L (135-145); Total Protein 7.1 g/dL (6.5-8.0)
[2025-03-09 06:48] LABS: Lyme Abs Screen <0.90 index
== END 2025-03-08 14:58 | disposition home or self-care (01) ==
LOC: HO.HKASLDS 14:57
PROVIDERS: PCP Internal Medicine; Visit Provider Physician Assistant
DX: G43.109 Migraine with aura, not intractable, without status migrainosus (principal); R53.83 Other fatigue; M79.10 Myalgia, unspecified site; R31.29 Other microscopic hematuria; M54.2 Cervicalgia
CPT/HCPCS: 36415; 80053; 82306; 84443; 85025; 86617; 86618; 99212